=== PATIENT | female | born 1955 | race Caucasian/White ===

== ENCOUNTER 2017-05-20 09:30 | Outpatient (RCR) | payer OTHER, SELFPAY ==
--- NOTE | 2018-03-23 16:20 | DS.PCM_ITS ---
Massage Therapy Discharge Summary: Initial Evaluation: 04/29/2017 Diagnosis: shoulder and neck pain No. of Visits: Date of last visit: 05/20/2017 This patient is being discharged from our care at the [facility]. Thank you, Michaela Silva LMT
== END 2017-05-20 19:00 | disposition home or self-care (01) ==
LOC: MASS 09:30
PROVIDERS: Family Provider Family Medicine; PCP Family Medicine; Visit Provider Family Medicine
DX: M54.2 Cervicalgia (principal)
CPT/HCPCS: 97124

== ENCOUNTER → 2017-06-08 09:53 | Outpatient (CLI) | payer OTHER, SELFPAY ==
--- NOTE | 2017-06-08 09:57 | ECHOD_ITS ---
Reason For Study: CARDIOMYOPATHY Procedure This was a 2D Doppler, Color Flow transthoracic echocardiogram. Exam performed in department. Left Ventricle Normal LV size. Left ventricular systolic function is normal. The estimated ejection fraction is 55 %. No evidence for diastolic dysfunction. No regional wall motion abnormalities noted. Right Ventricle Normal RV size. Normal systolic function. Atria Normal left atrium. Normal right atrium. Mitral Valve Normal mitral valve. Mild (1+) eccentric mitral valve insufficiency. Tricuspid Valve Normal tricuspid valve. Mild (1+) tricuspid valve insufficiency. Aortic Valve Normal aortic valve. Trisinus/trileaflet aortic valve. Pulmonic Valve Normal pulmonic valve. Great Vessels Normal aortic root. The pulmonary artery is normal size. Normal inferior vena cava. Pericardium/Pleural No pericardial effusion. MMode/2D Measurements & Calculations LVIDd: 3.8 cm IVSd: 0.75 cm Ao root diam: 3.1 cm LVIDs: 2.7 cm LVPWd: 0.76 cm LA dimension: 3.4 cm RVDd: 3.9 cm FS: 28.8 % LAV(MOD-bp): 31.4 ml EDV(MOD-sp4): 89.0 ml EDV(MOD-sp2): 78.1 ml LAV(MOD-bp) Indexed: 17.8 ml/m2 ESV(MOD-sp4): 38.9 ml EF(MOD-sp2): 63.0 % LAV(MOD-sp2): 30.7 ml EF(MOD-sp4): 56.3 % LAV(MOD-sp4): 30.4 ml SV(MOD-sp4): 50.1 ml SV(MOD-sp2): 49.2 ml LA A4 area: 13.3 cm2 RA A4 area: 11.7 cm2 Doppler Measurements & Calculations MV E max tiffany: 68.0 cm/sec Ao V2 max: 114.8 cm/sec LV V1 max: 92.0 cm/sec MV A max tiffany: 79.7 cm/sec Ao max P.3 mmHg LV V1 max P.4 mmHg MV E/A: 0.85 PA V2 max: 76.9 cm/sec TR max tiffany: 212.6 cm/sec TR max P.2 mmHg Interpretation Summary Normal LV size. Left ventricular systolic function is normal. The estimated ejection fraction is 55 %. Mild (1+) eccentric mitral valve insufficiency. Mild (1+) tricuspid valve insufficiency. No evidence for diastolic dysfunction. Compared to previous there is significant improvement Ordering Physician: Waldemar López Referring Physician: MEHDI CHRISTINE Performed By: Tg Patterson, RDCS, RVT
== END ==
PROVIDERS: Family Provider Family Medicine; PCP Family Medicine; Visit Provider Internal Medicine Cardiovascular Disease
DX: R00.2 Palpitations (principal); I51.81 Takotsubo syndrome
CPT/HCPCS: 93306

== ENCOUNTER → 2017-06-25 12:43 | Outpatient (CLI) | payer OTHER, SELFPAY ==
--- NOTE | 2017-06-25 12:59 | PCM.CR.HP2 ---
CR - History & Physical - General Arrival date:: 06/25/17 Arrival time:: 13:00 Date of Admission: 06/25/17 Referring Physician: Primary Diagnosis: NSTEMI, PCI - History of Present Cardiac Event Onset Date: Enter Onset Date of cardiac illnesses in Comment field below Angina:: Yes [place]:: Yes - 02/16/18 CABG:: No PTCA:: No Valve Replacement/Repair:: No Pacemaker/ICD: No Type of Symptoms:: [place] SOB, anterior chest pain. Interventions with present event:: Adm and then had heart cath Were there any complications?: no - Medications Home Medications: Ambulatory Orders Medication Instructions Recorded Aspirin [Aspirin, Baby] 81 mg PO DAILY@0800 #30 tab.chew 02/17/17 carvedilol 6.25 mg tablet 6.25 mg PO BID #60 tab 03/10/17 lisinopril 2.5 mg tablet 2.5 mg PO DAILY #30 tab 03/18/17 ascorbic acid (vitamin C) ER 1,000 1,000 mg PO BID tab 06/15/17 mg tablet,extended release - Allergies Allergies/Adverse Reactions: Allergies potassium Allergy (Verified 06/16/17 10:59) Anaphylaxis PATIENT CAN TOLERATE PO POTASSIUM NOT IV, PATIENT STATES HEART STOPPED WHEN GIVEN IV POTASSIUM. acetaminophen [From Tylenol] Adverse Reaction (Verified 06/16/17 10:59) Unknown codeine Adverse Reaction (Verified 06/16/17 10:59) Vomiting - Sleep Disorder Evaluation Hx of Sleep Apnea: No Do you snore loudly (louder than talking or can be heard through closed doors)?: Yes Do you often feel tired/ fatigued/ sleepy during daytime?: Yes Has anyone observed you stop breathing during sleep?: No History of Hypertension (for STOP score): No STOP Results: Positive Advanced Directives - Advanced Directives Power of Primary School Teacher: No Living Will: No Advance Directives Information Provided: Yes Advance Directives on File: No DNR Order?:: No Past Medical History - Problems and Co-Morbidities Problems & Co-Morbidities: Depression, Anxiety - Past Medical Illness Past Medical Illness: Arthritis, Lung or Breathing Problems - Some sob at times, Back Problems, Neuropathy - has some numbness and tingling from neck issues at times. - Past Cardiac Illness Past Cardiac Illness: LV Dysfunction - EF 35 now 55%, Ejection Fraction Other Cardiac Illnesses:: Takotsubo Cardiomyopathy. - Other Other: Vision/Eye Problems - Cataract surg bilaterally - Cardiology Procedures/Interventions Cardiology Procedures/Interventions: Heart Catheterization, Echocardiogram - Past Surgical History Surgical History: cataract, - - R carpal tunnel surgery, BL cataract, ABEBA (unilateral, unclear which side), Appendectomy. - Family History Summary Family History: Heart Disease: Maternal, Paternal, Sibling - CHF age 92, dad had mi- age 84, brothers and sisters with heart disease(CAD). Review of Systems - Review of Systems Hints: Right click = Denies (Slash). Left click = Reports ([place]) Review of Present Symptoms: Reports: Shortness of Breath with Exertion - with tension notices it., Fatigue, Heart Arrhythmia/Irregularities - yes a few weeks ago., Appetite - Normal, Sleep - Normal - difficulty falling asleep. Denies: Shortness of Breath at Rest, PVD, Operative Discomfort, Angina, Wound Healing, Dizziness/Lightheadedness, Appetite - Special Diet, Sexual Changes Risk Factor Assessment - Chief Complaint Chief Complaint: to get healthy - Pulse Pulse Rate: 57 Pulse Rhythm: Regular - Hypertension Blood Pressure Sitting - Right Arm: 110/70 Blood Pressure Sitting - Left Arm: 124/70 - Stress Stress: Long-standing, Work-related - Diabetes Nutrition Referral for Diabetes: No - Obesity Height: 1.7 m Weight:: 68.039 kg Weight in Pounds: 150.0 lbs Body Mass Index (BMI): 23.5 Nutritional Referral for Obesity: No - Physical Inactivity Physical Inactivity: Physically demanding job - Risk Stratification Risk Guidelines: Lowest Risk: Risk Factor for Smoking, Risk Factor for Dyslipidemia, Risk Factor for Diabetes, Risk Factor for Obesity, Risk Factor for Hypertension, Risk Factor for Sedentary Lifestyle, Highest Risk: Risk Factor for Depression - For Smoking Smoking Risk Guidelines: Smoking Low Risk: None or quit greater than 6 months ago. Smoking Moderate Risk: Smoker or quit 6 months or less ago. Smoking High Risk: Smoker - For Dyslipidemia Dyslipidemia Risk Guidelines: Low Risk: Moderate Risk: High Risk: 15-25% fat 25.1-29% fat >/= 30% fat. <7% sat fat 7-9% sat fat >9% sat fat. <150 mg chol 150-299 mg chol >/= 300 mg chol. LDL <100 LDL 100-129 LDL >/= 130. Chol/HDL ratio <5.0 Chol/HDL ratio 5.0-6.0 Chol/HDL ratio >6.0. Triglycerides <100 Triglycerides 100-149 Triglycerides >/= 150 - For Diabetes Mellitus Diabetes Risk Guidelines: Diabetes Low Risk: HgA1c <6.5% and/or FBG <120. Diabetes Moderate Risk: HgA1c 6.6-7.9% and/or FBG 120-180. Diabetes High Risk: HgA1c >/= 8% and/or FBG >180 - For Obesity/Overweight Obesity/Overweight Risk Guidelines: Obesity Low Risk: BMI <25.0. Obesity Moderate Risk: BMI 25-29.9. Obesity High Risk: BMI >/= 30.0 - For Hypertension Hypertension Risk Guidelines: Hypertension Low Risk: Systolic <120 and Diastolic <80. Hypertension Moderate Risk: Systolic 120-139 and Diastolic 80-89. Hypertension High Risk: Systolic >/= 140 and Diastolic >/= 90 - For Sedentary Lifestyle Sedentary Lifestyle Risk Guidelines: Sedentary Lifestyle Low Risk: >/= 1,500 kcal/week. Sedentary Lifestyle Moderate Risk: 700-1,499 kcal/week. Sedentary Lifestyle High Risk: < 700 kcal/week - For Depression Depression Risk Guidelines: Depression Low Risk: Not clinically depressed. Depression Moderate Risk: Mildly depressed. 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
--- NOTE | 2017-06-25 13:13 | CR.ITP_ITS ---
Exercise - Initial Assessment - Visit Date of Eval: 06/25/17 - Stages of Change Stages of Change:: Action - Exercise Prescription Mode:: Treadmill, Biodyne, Rower, NuStep - Hypertension Do any of the following apply?: No - Intervention Home Exercise/Activity Goal:: Sitting Time <3 hrs/day - Education Goals:: Warm-up, RPE JOSE ALFREDO Scale, S/S, Safe Exercise, Self-Monitoring - Exercise Program Goals Exercise Program Goals: Aerobic Activity >30 min Nutrition - Initial Assessment - Program Goals Nutrition Program Goals: LDL <70. Total Cholesterol <200. HDL >45. Triglycerides <150. HgbA1C <7%. BMI <25 - Visit Date of Assessment:: 06/25/17 - Stages of Change Stages of Change:: Action - Diabetes Diabetes:: No - Weight Management Height: 1.7 m Weight:: 68.039 kg - Intervention Referral to dietitian:: No Referral to Diabetic Clinic:: No Will attend diet classes:: Yes - Education Gave educational materials for:: Healthy eating Nutrition - 30-Day Assessment - Program Goals Nutrition Program Goals: LDL <70. Total Cholesterol <200. HDL >45. Triglycerides <150. HgbA1C <7%. BMI <25 - Diabetes Diabetes:: No Nutrition - 60-Day Assessment - Program Goals Nutrition Program Goals: LDL <70. Total Cholesterol <200. HDL >45. Triglycerides <150. HgbA1C <7%. BMI <25 - Diabetes Diabetes:: No Nutrition - 90-Day Assessment - Program Goals Nutrition Program Goals: LDL <70. Total Cholesterol <200. HDL >45. Triglycerides <150. HgbA1C <7%. BMI <25 - Diabetes Diabetes:: No Nutrition - Final Assessment - Program Goals Nutrition Program Goals: LDL <70. Total Cholesterol <200. HDL >45. Triglycerides <150. HgbA1C <7%. BMI <25 - Diabetes Diabetes:: No Tobacco - Initial Assessment - Program Goals Tobacco Program Goals: Complete smoking cessation. Attend education classes. Improve Knowledge Test score - Stage of Change Stages of Change:: Maintenance - Learning Barriers Learning Barriers: Vision - wears glasses, Ready to Learn Total Score:: 7 - Family Support Do you have family support?: Yes - Tobacco Use Tobacco Use: Non-smoker How long ago did you quit using tobacco products?: Greater than or equal to 6 months ago Do you use smokeless tobacco?: No - Intervention Smoking Cessation Referral:: No Individual Education/Counseling:: No Education Schedule Given:: Yes - Education Gave educational material for:: Coronary artery disease, Risk factors, Sexuality , Medical compliance, Cardiac A&P, Angina signs & symptoms Psychosocial - Initial Assess - Target Goals Target Goals: Assess presence or absence of depression. Using a valid screening tool, maximizes coping skills. Positive support system - Stages of Change Stages of Change:: Action - Psychosocial Test Tool Used:: HANDS Depression Questionnaire Self-reported stress:: yes, work related. Tests Completed: Mood Scale Test Total Mood Screening Score:: 19 - Numbers given for counselling and had discussion on this. MD's are aware. Self-Efficacy Score:: 5 - Intervention PS - Interventions: Yes Referral to Mental Health - info given., Yes Attend Stress Management Classes, Yes Uses Stress Management Skills, No Referral to [facility] Case Management, No Referral to Physician - Education Gave educational materials for:: Coping techniques, Signs & symptoms of depression, Stress management, Relaxation techniques - Patient/Program Goal Preventative Medication(s):: Aspirin, ARACELI inhibitor, Clopidogrel, Beta sarah, Statin/lipid - Assistive Devices Assistive Devices:: None Fall Risk Assessed:: Yes Patient Health Questionnaire Initial Assessment 1. Little interest or pleasure in doing things: More than half the days 2. Feeling down, depressed, or hopeless: More than half the days 3. Trouble falling or staying asleep, or sleeping too much: Nearly every day 4. Feeling tired or having little energy: Nearly every day 5. Poor appetite or overeating: Nearly every day 6. Feeling bad about yourself -- or that you are a failure or have let yourself or your family down: Several days 7. Trouble concentrating on things, such as reading the newspaper or watching television: More than half the days 8. Moving or speaking so slowly that other people could have noticed. Or the opposite - being so fidgety or restless that you have been moving around a lot more than usual: Nearly every day 9. Thoughts that you would be better off , or of hurting yourself in some way: Not at all Total Score: 19 Knowledge Test - Check your knowledge Initial The #1 cause of in the [place] each year is:: Cancer Which of the following is a common treatment for heart disease?: All of the above The arteries that feed the heart are called:: Coronary arteries HDL cholesterol is known as the good cholesterol.: False What disease increases your risk for heart disease?: Pneumonia What food product raises blood cholesterol level the most?: Saturated fat The bad cholesterol in the blood is called:: LDL Hypertension is another word for:: High blood pressure A blood pressure reading of 148/88 is considered normal.: False Exercise will only benefit your health when your heart rate reaches a target level.: False Total Score:: 7 Self-Efficacy Initial Assessment We would like to know how confident you are in doing certain activities. Please select your confidence level for:: Select your confidence level for the following using the scale 1-10 where 1 is not at all confident and 10 is totally confident. Your score is the average of all 6 responses. Fatigue: How confident are you that you can keep the fatigue caused by your disease from interfering with the things you want to do? Select Number: 2 Physical Discomfort or Pain: How confident are you that you can keep the physical discomfort or pain of your disease from interfering with the things you want to do? Select Number: 2 Emotional Distress: How confident are you that you can keep the emotional distress caused by your disease from interfering with the things you want to do? Select Number: 2 Other Symptoms or Health Problems: How confident are you that you can keep other symptoms or health problems from interfering with the things you want to do? Select Number: 2 Different Tasks and Activities: How confident are you that you can do the different tasks and activities needed to manage your health condition so as to reduce your need to see a doctor? Select Number: 5 Medication: How confident are you that you can do things other than just taking medication to reduce how much your illness affects your everyday life? Select Number: 5 Total Score:: 3 Nutrition Survey - Nutrition Survey Instructions Scoring Instructions: Scoring is as follows: Yes = 1 points. No = 0 point. Patient score that is >/=12 is considered to be at potential nutritional risk and could benefit from a referral to a registered dietitian. - Nutrition Survey Initial Have you lost >10 lbs over the past 2 months without trying?: No Are you following a special diet at home for diabetes, low fat, or low salt?: No Are you interested in meeting with a dietitian for help understanding your diet? : No Do you eat less than 3 meals a day?: Yes Do you eat fatty meats (acosta, sausage, ribs, etc), fried foods, desserts, large amounts of salad dressings, margarine, butter, or cheese most days?: No Do you have food allergies? [Enter types in comment field]: Yes Do you eat in restaurants more than 3 times a week?: No Do you season food with salt, seasoning salt, or garlic salt?: Yes Do you used canned, boxed, frozen meals, or soups, seasoning packets?: Yes Total Score:: 4 Cardiac Rehabilitation Goals - Cardiac Rehab Goals Cardiac Rehabilitation Goals: 1. Maintain the individual as the primary focus of care. 2. To improve the patient's quality of life. 3. Identification of cardiac risk factors and provide cardiac risk factor management. 4. Enhance the psychosocial status of the patient. 5. Reconditioning enough to allow the patient to resume customary activities. 6. Control symptoms of cardiac disease - Scale Scale for measuring improvement of personal goals: Enter appropriate number in Comments. 2 = Unchanged. 3 = Slightly Better. 4 = Moderate Improvement. 5 = Met my Goal Initial Assessment Personal Goals: 30-day Re-assessment: Improve management of stress and emotions , Improve energy level, Participate in home exercise program, Get back to work, or to resume activities faster, Improve knowledge of cardiac disease, Improve muscle strength and endurance, Improve diet and eating habits (eat healthier), Control risk factors (learn risk factor modification), Other goal:
--- NOTE | 2017-06-25 13:13 | CR.HP_ITS ---
CR - History & Physical - General Arrival date:: 06/25/17 Arrival time:: 13:00 Date of Admission: 06/25/17 Referring Physician: Primary Diagnosis: NSTEMI, PCI - History of Present Cardiac Event Onset Date: Enter Onset Date of cardiac illnesses in Comment field below Angina:: Yes [place]:: Yes - 02/16/18 CABG:: No PTCA:: No Valve Replacement/Repair:: No Pacemaker/ICD: No Type of Symptoms:: [place] SOB, anterior chest pain. Interventions with present event:: Adm and then had heart cath Were there any complications?: no - Medications Home Medications: Ambulatory Orders Medication Instructions Recorded Aspirin [Aspirin, Baby] 81 mg PO DAILY@0800 #30 tab.chew 02/17/17 carvedilol 6.25 mg tablet 6.25 mg PO BID #60 tab 03/10/17 lisinopril 2.5 mg tablet 2.5 mg PO DAILY #30 tab 03/18/17 ascorbic acid (vitamin C) ER 1,000 1,000 mg PO BID tab 06/15/17 mg tablet,extended release - Allergies Allergies/Adverse Reactions: Allergies potassium Allergy (Verified 06/16/17 10:59) Anaphylaxis PATIENT CAN TOLERATE PO POTASSIUM NOT IV, PATIENT STATES HEART STOPPED WHEN GIVEN IV POTASSIUM. acetaminophen [From Tylenol] Adverse Reaction (Verified 06/16/17 10:59) Unknown codeine Adverse Reaction (Verified 06/16/17 10:59) Vomiting - Sleep Disorder Evaluation Hx of Sleep Apnea: No Do you snore loudly (louder than talking or can be heard through closed doors)? : Yes Do you often feel tired/ fatigued/ sleepy during daytime?: Yes Has anyone observed you stop breathing during sleep?: No History of Hypertension (for STOP score): No STOP Results: Positive Advanced Directives - Advanced Directives Power of [employer]: No Living Will: No Advance Directives Information Provided: Yes Advance Directives on File: No DNR Order?:: No Past Medical History - Problems and Co-Morbidities Problems & Co-Morbidities: Depression, Anxiety - Past Medical Illness Past Medical Illness: Arthritis, Lung or Breathing Problems - Some sob at times , Back Problems, Neuropathy - has some numbness and tingling from neck issues at times. - Past Cardiac Illness Past Cardiac Illness: LV Dysfunction - EF 35 now 55%, Ejection Fraction Other Cardiac Illnesses:: Takotsubo Cardiomyopathy. - Other Other: Vision/Eye Problems - Cataract surg bilaterally - Cardiology Procedures/Interventions Cardiology Procedures/Interventions: Heart Catheterization, Echocardiogram - Past Surgical History Surgical History: cataract, - - R carpal tunnel surgery, BL cataract, ABEBA ( unilateral, unclear which side), Appendectomy. - Family History Summary Family History: Heart Disease: Maternal, Paternal, Sibling - CHF age 92, dad had mi- age 84, brothers and sisters with heart disease(CAD). Review of Systems - Review of Systems Hints: Right click = Denies (Slash). Left click = Reports ([place]) Review of Present Symptoms: Reports: Shortness of Breath with Exertion - with tension notices it., Fatigue, Heart Arrhythmia/Irregularities - yes a few weeks ago., Appetite - Normal, Sleep - Normal - difficulty falling asleep. Denies: Shortness of Breath at Rest, PVD, Operative Discomfort, Angina, Wound Healing, Dizziness/Lightheadedness, Appetite - Special Diet, Sexual Changes Risk Factor Assessment - Chief Complaint Chief Complaint: to get healthy - Pulse Pulse Rate: 57 Pulse Rhythm: Regular - Hypertension Blood Pressure Sitting - Right Arm: 110/70 Blood Pressure Sitting - Left Arm: 124/70 - Stress Stress: Long-standing, Work-related - Diabetes Nutrition Referral for Diabetes: No - Obesity Height: 1.7 m Weight:: 68.039 kg Weight in Pounds: 150.0 lbs Body Mass Index (BMI): 23.5 Nutritional Referral for Obesity: No - Physical Inactivity Physical Inactivity: Physically demanding job - Risk Stratification Risk Guidelines: Lowest Risk: Risk Factor for Smoking, Risk Factor for Dyslipidemia, Risk Factor for Diabetes, Risk Factor for Obesity, Risk Factor for Hypertension, Risk Factor for Sedentary Lifestyle, Highest Risk: Risk Factor for Depression - For Smoking Smoking Risk Guidelines: Smoking Low Risk: None or quit greater than 6 months ago. Smoking Moderate Risk: Smoker or quit 6 months or less ago. Smoking High Risk: Smoker - For Dyslipidemia Dyslipidemia Risk Guidelines: Low Risk: Moderate Risk: High Risk: 15-25% fat 25.1-29% fat >/= 30% fat. <7% sat fat 7-9% sat fat >9% sat fat. <150 mg chol 150-299 mg chol >/= 300 mg chol. LDL <100 LDL 100-129 LDL >/= 130. Chol/HDL ratio <5.0 Chol/HDL ratio 5.0-6.0 Chol/HDL ratio >6.0. Triglycerides <100 Triglycerides 100-149 Triglycerides >/= 150 - For Diabetes Mellitus Diabetes Risk Guidelines: Diabetes Low Risk: HgA1c <6.5% and/or FBG <120. Diabetes Moderate Risk: HgA1c 6.6-7.9% and/or FBG 120-180. Diabetes High Risk: HgA1c >/= 8% and/or FBG >180 - For Obesity/Overweight Obesity/Overweight Risk Guidelines: Obesity Low Risk: BMI <25.0. Obesity Moderate Risk: BMI 25-29.9. Obesity High Risk: BMI >/= 30.0 - For Hypertension Hypertension Risk Guidelines: Hypertension Low Risk: Systolic <120 and Diastolic <80. Hypertension Moderate Risk: Systolic 120-139 and Diastolic 80-89. Hypertension High Risk: Systolic >/= 140 and Diastolic >/= 90 - For Sedentary Lifestyle Sedentary Lifestyle Risk Guidelines: Sedentary Lifestyle Low Risk: >/= 1 ,500 kcal/week. Sedentary Lifestyle Moderate Risk: 700-1,499 kcal/week. Sedentary Lifestyle High Risk: < 700 kcal/week - For Depression Depression Risk Guidelines: Depression Low Risk: Not clinically depressed. Depression Moderate Risk: Mildly depressed. 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
[2017-06-25 14:37] VITALS: BP 110/70; BP 124/70; PULSE 57; BMI 23.5
== END ==
PROVIDERS: Family Provider Family Medicine; PCP Family Medicine; Visit Provider Internal Medicine Cardiovascular Disease
DX: I25.2 Old myocardial infarction (principal); Z95.5 Presence of coronary angioplasty implant and graft

== ENCOUNTER 2017-07-03 08:00 | Outpatient (RCR) | payer OTHER, SELFPAY | END 2017-07-04 23:59 | LOC: CR 08:00 | PROVIDERS: Family Provider Family Medicine; PCP Family Medicine; Visit Provider Internal Medicine Cardiovascular Disease | DX: I21.4 Non-ST elevation (NSTEMI) myocardial infarction (principal) | CPT/HCPCS: 93798 ==

== ENCOUNTER → 2017-07-22 09:46 | Outpatient (CLI) | payer OTHER, SELFPAY ==
[2017-07-22 11:24] LABS: BNP,B-Type NATRIURETIC PEPTIDE 20.7 pg/mL (0-100)
== END ==
PROVIDERS: Family Provider Family Medicine; PCP Family Medicine; Visit Provider Nurse Practitioner Family
DX: R06.02 Shortness of breath (principal); I51.81 Takotsubo syndrome
CPT/HCPCS: 36415; 83880

== ENCOUNTER 2017-08-03 08:00 | Outpatient (RCR) | payer OTHER, SELFPAY ==
--- NOTE | 2017-07-27 10:17 | PCM.CR.ITP ---
General Information - General Information Admitting Diagnosis: I51.81 Takotsubo syndrome - Education/Goals Barriers to Learning: Vision Impairment Cardiac Rehabilitation Goals: 1. Maintain the individual as the primary focus of care. 2. To improve the patient's quality of life. 3. Identification of cardiac risk factors and provide cardiac risk factor management. 4. Enhance the psychosocial status of the patient. 5. Reconditioning enough to allow the patient to resume customary activities. 6. Control symptoms of cardiac disease Scale for measuring improvement of personal goals: Enter appropriate number in Comments. 2 = Unchanged. 3 = Slightly Better. 4 = Moderate Improvement. 5 = Met my Goal Personal Goals: 30-day Re-assessment: Improve management of stress and emotions, Improve energy level, Participate in home exercise program, Get back to work, or to resume activities faster, Improve knowledge of cardiac disease, Improve muscle strength and endurance Exercise - 30-day Assessment - Visit Date of Eval: 07/27/17 Session #:: 11 - Stages of Change Stages of Change:: Action - Exercise Prescription Mode:: Treadmill, Airdyne, NuStep Frequency (x/week): 3 Duration:: 30 METs - Progression: 0.5-1 MET as tolerated: 4 Target Heart Rate:: 120-128 - Hypertension Resting Blood Pressure:: 100/48 Peak Exercise Blood Pressure:: 112/60 Medication Changes:: Yes - Off lisinopril 07/17/2017 - Intervention Home Exercise/Activity Goal:: Sitting Time <3 hrs/day - Education Goals:: Warm-up, RPE JOSE ALFREDO Scale, S/S, Safe Exercise, Self-Monitoring - Exercise Program Goals Exercise Program Goals: Aerobic Activity >30 min, B/P <140/90 Nutrition - 30-Day Assessment - Program Goals Nutrition Program Goals: LDL <70. Total Cholesterol <200. HDL >45. Triglycerides <150. HgbA1C <7%. BMI <25 - Visit Date of Eval: 07/27/17 - Stages of Change Stages of Change:: Action - Lipids Has the patient seen the dietitian?: No - Diabetes Diabetes:: No - Weight Management Weight:: 70.08 kg - Intervention Referral to dietitian:: No Referral to Diabetic Clinic:: No Will attend diet classes:: Yes - Education Attended class for:: Signs & symptoms of hypoglycemia, Signs & symptoms of hyperglycemia, Relate diabetes to coronary artery disease, Healthy eating Tobacco - Initial Assessment - Program Goals Tobacco Program Goals: Complete smoking cessation. Attend education classes. Improve Knowledge Test score - Learning Barriers Learning Barriers: Vision - wears glasses, Ready to Learn Tobacco - 30-Day Assessment - Program Goals Tobacco Program Goals: Complete smoking cessation. Attend education classes. Improve Knowledge Test score - Stage of Change Stages of Change:: Action - Learning Barriers Learning Barriers: Participates in education - Family Support Do you have family support?: Yes - Tobacco Use Tobacco Use: Non-smoker Do you use smokeless tobacco?: No - Intervention Smoking Cessation Referral:: No Individual Education/Counseling:: No Education Schedule Given:: Yes - Education Attended class for:: Tobacco triggers, Coronary artery disease, Risk factors, Sexuality, Medical compliance, Cardiac A&P, Angina signs & symptoms Psychosocial - Initial Assess - Target Goals Target Goals: Assess presence or absence of depression. Using a valid screening tool, maximizes coping skills. Positive support system - Psychosocial Test Tool Used:: HANDS Depression Questionnaire - Assistive Devices Fall Risk Assessed:: Yes Psychosocial - 30-Day Assess - Target Goals Target Goals: Assess presence or absence of depression. Using a valid screening tool, maximizes coping skills. Positive support system - Stages of Change Stages of Change:: Action - Psychosocial Test Tool Used:: HANDS Depression Questionnaire - Intervention PS - Interventions: Yes Attend Stress Management Classes, Yes Uses Stress Management Skills, No Referral to Mental Health, No Referral to [facility] Case Management, No Referral to Physician - Education Attended classes for:: Coping techniques, Signs & symptoms of depression, Stress management, Relaxation techniques - Assistive Devices Assistive Devices:: None Fall Risk Assessed:: Yes Patient Health Questionnaire 30-Day Re-eval Assessment 1. Little interest or pleasure in doing things: More than half the days 2. Feeling down, depressed, or hopeless: More than half the days 3. Trouble falling or staying asleep, or sleeping too much: Nearly every day 4. Feeling tired or having little energy: Nearly every day 5. Poor appetite or overeating: Nearly every day 6. Feeling bad about yourself -- or that you are a failure or have let yourself or your family down: Several days 7. Trouble concentrating on things, such as reading the newspaper or watching television: More than half the days 8. Moving or speaking so slowly that other people could have noticed. Or the opposite - being so fidgety or restless that you have been moving around a lot more than usual: Nearly every day 9. Thoughts that you would be better off , or of hurting yourself in some way: Not at all How difficult have these problems made it for you to do your work, take care of things at home, or get along with other people?: Somewhat difficult Total Score: 19 Self-Efficacy 30-Day Re-eval Assessment We would like to know how confident you are in doing certain activities. Please select your confidence level for:: Select your confidence level for the following using the scale 1-10 where 1 is not at all confident and 10 is totally confident. Your score is the average of all 6 responses. Fatigue: How confident are you that you can keep the fatigue caused by your disease from interfering with the things you want to do? Select Number: 2 Physical Discomfort or Pain: How confident are you that you can keep the physical discomfort or pain of your disease from interfering with the things you want to do? Select Number: 2 Emotional Distress: How confident are you that you can keep the emotional distress caused by your disease from interfering with the things you want to do? Select Number: 2 Other Symptoms or Health Problems: How confident are you that you can keep other symptoms or health problems from interfering with the things you want to do? Select Number: 2 Different Tasks and Activities: How confident are you that you can do the different tasks and activities needed to manage your health condition so as to reduce your need to see a doctor? Select Number: 5 Medication: How confident are you that you can do things other than just taking medication to reduce how much your illness affects your everyday life? Select Number: 5 Total Score:: 3
[2017-07-27 10:29] VITALS: BP 100/48; BP 112/60
== END 2017-08-03 23:59 ==
LOC: CR 08:00
PROVIDERS: Family Provider Family Medicine; PCP Family Medicine; Visit Provider Internal Medicine Cardiovascular Disease
DX: I21.4 Non-ST elevation (NSTEMI) myocardial infarction (principal)
CPT/HCPCS: 93798

== ENCOUNTER → 2017-08-25 06:51 | Outpatient (CLI) | payer OTHER, SELFPAY ==
--- NOTE | 2017-08-25 13:47 | PFT ---
INTRODUCTION: The patient is a 61-year-old female currently under the care of Dr. Hair that presents for pulmonary function testing secondary to a diagnosis of dyspnea on exertion. Respiratory therapy reports good patient effort. Bronchodilators were used during testing. INTERPRETATION: Forced expiration spirometry demonstrates no evidence of a large airways obstructive ventilatory defect. There is no significant response to aerosolized bronchodilators. Spirograms are of good quality and plateau gradually indicating slow emptying of the lungs. Body plethysmography was performed and reveals lung volumes to be within normal limits. Diffusing capacity by single breath CO is within normal limits at 98% of predicted. IMPRESSION: These pulmonary function studies are essentially within normal limits. There are no previous pulmonary function studies available for comparison.
== END ==
PROVIDERS: Family Provider Family Medicine; PCP Family Medicine; Visit Provider Family Medicine
DX: R06.09 Other forms of dyspnea (principal)
CPT/HCPCS: 94060; 94726; 94729

== ENCOUNTER 2017-09-02 08:00 | Outpatient (RCR) | payer OTHER, SELFPAY ==
[2017-08-04 01:01] VITALS: BP 100/48; BP 112/60
--- NOTE | 2017-08-26 13:42 | PCM.CR.ITP ---
General Information - General Information Admitting Diagnosis: I58.81 Takotsubo syndrome - Education/Goals Barriers to Learning: Vision Impairment Cardiac Rehabilitation Goals: 1. Maintain the individual as the primary focus of care. 2. To improve the patient's quality of life. 3. Identification of cardiac risk factors and provide cardiac risk factor management. 4. Enhance the psychosocial status of the patient. 5. Reconditioning enough to allow the patient to resume customary activities. 6. Control symptoms of cardiac disease Scale for measuring improvement of personal goals: Enter appropriate number in Comments. 2 = Unchanged. 3 = Slightly Better. 4 = Moderate Improvement. 5 = Met my Goal Personal Goals: Discharge Reassessment: Improve management of stress and emotions, Improve energy level, Participate in home exercise program, Get back to work, or to resume activities faster, Improve knowledge of cardiac disease, Improve muscle strength and endurance Exercise - 90-Day Assessment - Visit Date of Eval: 08/26/17 Session #:: 24 - Stages of Change Stages of Change:: Action - Exercise Prescription Mode:: Treadmill, Airdyne, NuStep Frequency (x/week): 3 - 50% MET increase Duration:: 30 METs: 4.5 Target Heart Rate:: 128-136 Max HR 148 - Hypertension Resting Blood Pressure:: 122/70 Peak Exercise Blood Pressure:: 148/80 Medication Changes:: Yes - Off Lisinopril 07/17, off Coreg 07/27 - Intervention Home Exercise/Activity Goal:: Sitting Time <3 hrs/day - Education Goals:: Warm-up, RPE JOSE ALFREDO Scale, S/S, Safe Exercise, Self-Monitoring - Exercise Program Goals Exercise Program Goals: Aerobic Activity >30 min, B/P <130/80 Nutrition - 90-Day Assessment - Program Goals Nutrition Program Goals: LDL <70. Total Cholesterol <200. HDL >45. Triglycerides <150. HgbA1C <7%. BMI <25 - Visit Date of Eval: 08/26/17 - Stages of Change Stages of Change:: Contemplate - Lipids Has the patient seen the dietitian?: No - Diabetes Diabetes:: No - Weight Management Weight:: 70.08 kg - Intervention Referral to dietitian:: No Referral to Diabetic Clinic:: No Will attend diet classes:: Yes - Education Attended class for:: Signs & symptoms of hypoglycemia, Signs & symptoms of hyperglycemia, Relate diabetes to coronary artery disease, Healthy eating Tobacco - Initial Assessment - Program Goals Tobacco Program Goals: Complete smoking cessation. Attend education classes. Improve Knowledge Test score - Learning Barriers Learning Barriers: Vision - wears glasses, Ready to Learn Tobacco - 90-Day Assessment - Program Goals Tobacco Program Goals: Complete smoking cessation. Attend education classes. Improve Knowledge Test score - Stage of Change Stages of Change:: Action - Learning Barriers Learning Barriers: Participates in education - Family Support Do you have family support?: Yes - Tobacco Use Tobacco Use: Non-smoker Do you use smokeless tobacco?: No - Intervention Smoking Cessation Referral:: No Individual Education/Counseling:: No Education Schedule Given:: Yes - Education Attended class for:: Tobacco triggers, Coronary artery disease, Risk factors, Sexuality, Medical compliance, Cardiac A&P, Angina signs & symptoms Psychosocial - Initial Assess - Target Goals Target Goals: Assess presence or absence of depression. Using a valid screening tool, maximizes coping skills. Positive support system - Psychosocial Test Tool Used:: HANDS Depression Questionnaire - Assistive Devices Fall Risk Assessed:: Yes Psychosocial - 90-Day Assess - Target Goals Target Goals: Assess presence or absence of depression. Using a valid screening tool, maximizes coping skills. Positive support system - Stages of Change Stages of Change:: Action - Psychosocial Test Tool Used:: HANDS Depression Questionnaire - Intervention PS - Interventions: Yes Attend Stress Management Classes, Yes Uses Stress Management Skills, No Referral to Mental Health, No Referral to [facility] Case Management, No Referral to Physician - Education Attended classes for:: Coping techniques, Signs & symptoms of depression, Stress management, Relaxation techniques - Assistive Devices Assistive Devices:: None Fall Risk Assessed:: Yes Patient Health Questionnaire 90-Day Re-eval Assessment 1. Little interest or pleasure in doing things: More than half the days 2. Feeling down, depressed, or hopeless: More than half the days 3. Trouble falling or staying asleep, or sleeping too much: Nearly every day 4. Feeling tired or having little energy: Nearly every day 5. Poor appetite or overeating: Nearly every day 6. Feeling bad about yourself -- or that you are a failure or have let yourself or your family down: Several days 7. Trouble concentrating on things, such as reading the newspaper or watching television: More than half the days 8. Moving or speaking so slowly that other people could have noticed. Or the opposite - being so fidgety or restless that you have been moving around a lot more than usual: Several days 9. Thoughts that you would be better off , or of hurting yourself in some way: Not at all How difficult have these problems made it for you to do your work, take care of things at home, or get along with other people?: Somewhat difficult Total Score: 17 Self-Efficacy 90-Day Re-eval Assessment We would like to know how confident you are in doing certain activities. Please select your confidence level for:: Select your confidence level for the following using the scale 1-10 where 1 is not at all confident and 10 is totally confident. Your score is the average of all 6 responses. Fatigue: How confident are you that you can keep the fatigue caused by your disease from interfering with the things you want to do? Select Number: 2 Physical Discomfort or Pain: How confident are you that you can keep the physical discomfort or pain of your disease from interfering with the things you want to do? Select Number: 2 Emotional Distress: How confident are you that you can keep the emotional distress caused by your disease from interfering with the things you want to do? Select Number: 2 Other Symptoms or Health Problems: How confident are you that you can keep other symptoms or health problems from interfering with the things you want to do? Select Number: 2 Different Tasks and Activities: How confident are you that you can do the different tasks and activities needed to manage your health condition so as to reduce your need to see a doctor? Select Number: 5 Medication: How confident are you that you can do things other than just taking medication to reduce how much your illness affects your everyday life? Select Number: 5 Total Score:: 3
[2017-08-26 13:50] VITALS: BP 122/70; BP 148/80
== END 2017-09-03 23:59 ==
LOC: CR 08:00
PROVIDERS: Family Provider Family Medicine; PCP Family Medicine; Visit Provider Internal Medicine Cardiovascular Disease
DX: I21.4 Non-ST elevation (NSTEMI) myocardial infarction (principal)
CPT/HCPCS: 93798

== ENCOUNTER 2017-09-28 08:00 | Outpatient (RCR) | payer OTHER, SELFPAY ==
[2017-09-04 00:51] VITALS: BP 122/70; BP 148/80
--- NOTE | 2017-09-25 15:30 | PCM.CR.ITP ---
Exercise - 90-Day Assessment - Visit Date of Eval: 09/25/17 Session #:: 29 - Stages of Change Stages of Change:: Action - Exercise Prescription Mode:: Treadmill, Rower, NuStep, Arm Ergometer Frequency (x/week): 3 Duration:: 30 METs: 5 Target Heart Rate:: 128-136 - Hypertension Resting Blood Pressure:: 96/60 Peak Exercise Blood Pressure:: 110/74 Medication Changes:: Yes - Intervention Home Exercise/Activity Goal:: Moderate Exercise 30 min/day x 5 days/wk - Education Goals:: Warm-up, RPE JOSE ALFREDO Scale, S/S, Safe Exercise, Self-Monitoring - Exercise Program Goals Exercise Program Goals: Aerobic Activity >30 min Nutrition - 90-Day Assessment - Program Goals Nutrition Program Goals: LDL <70. Total Cholesterol <200. HDL >45. Triglycerides <150. HgbA1C <7%. BMI <25 - Visit Date of Eval: 09/25/17 - Stages of Change Stages of Change:: Action - Lipids Has the patient seen the dietitian?: Yes - Diabetes Diabetes:: No - Intervention Referral to dietitian:: No Referral to Diabetic Clinic:: No Will attend diet classes:: Yes - Education Attended class for:: Healthy eating Tobacco - Initial Assessment - Program Goals Tobacco Program Goals: Complete smoking cessation. Attend education classes. Improve Knowledge Test score - Learning Barriers Learning Barriers: Vision - wears glasses, Ready to Learn Tobacco - 90-Day Assessment - Program Goals Tobacco Program Goals: Complete smoking cessation. Attend education classes. Improve Knowledge Test score - Stage of Change Stages of Change:: Action - Learning Barriers Learning Barriers: Participates in education - Family Support Do you have family support?: Yes - Tobacco Use Tobacco Use: Non-smoker Do you use smokeless tobacco?: No - Intervention Education Schedule Given:: Yes - Education Attended class for:: Tobacco triggers, Coronary artery disease, Risk factors, Sexuality, Medical compliance, Cardiac A&P, Angina signs & symptoms Psychosocial - 90-Day Assess - Target Goals Target Goals: Assess presence or absence of depression. Using a valid screening tool, maximizes coping skills. Positive support system - Stages of Change Stages of Change:: Action - Psychosocial Test Tool Used:: HANDS Depression Questionnaire - Intervention PS - Interventions: Yes Attend Stress Management Classes, Yes Uses Stress Management Skills, No Referral to Mental Health, No Referral to [facility] Case Management, No Referral to Physician - Education Attended classes for:: Coping techniques, Signs & symptoms of depression, Stress management, Relaxation techniques - Patient/Program Goal Preventative Medication(s):: Aspirin, ARACELI inhibitor, Clopidogrel, Beta sarah, Statin/lipid - Assistive Devices Assistive Devices:: None Fall Risk Assessed:: Yes Patient Health Questionnaire 90-Day Re-eval Assessment 1. Little interest or pleasure in doing things: More than half the days 2. Feeling down, depressed, or hopeless: More than half the days 3. Trouble falling or staying asleep, or sleeping too much: Nearly every day 4. Feeling tired or having little energy: Nearly every day 5. Poor appetite or overeating: Several days 6. Feeling bad about yourself -- or that you are a failure or have let yourself or your family down: More than half the days 7. Trouble concentrating on things, such as reading the newspaper or watching television: Several days 8. Moving or speaking so slowly that other people could have noticed. Or the opposite - being so fidgety or restless that you have been moving around a lot more than usual: Not at all 9. Thoughts that you would be better off , or of hurting yourself in some way: Not at all How difficult have these problems made it for you to do your work, take care of things at home, or get along with other people?: Somewhat difficult Total Score: 14 Self-Efficacy 90-Day Re-eval Assessment We would like to know how confident you are in doing certain activities. Please select your confidence level for:: Select your confidence level for the following using the scale 1-10 where 1 is not at all confident and 10 is totally confident. Your score is the average of all 6 responses. Fatigue: How confident are you that you can keep the fatigue caused by your disease from interfering with the things you want to do? Select Number: 7 Physical Discomfort or Pain: How confident are you that you can keep the physical discomfort or pain of your disease from interfering with the things you want to do? Select Number: 8 Emotional Distress: How confident are you that you can keep the emotional distress caused by your disease from interfering with the things you want to do? Select Number: 7 Other Symptoms or Health Problems: How confident are you that you can keep other symptoms or health problems from interfering with the things you want to do? Select Number: 6 Different Tasks and Activities: How confident are you that you can do the different tasks and activities needed to manage your health condition so as to reduce your need to see a doctor? Select Number: 8 Medication: How confident are you that you can do things other than just taking medication to reduce how much your illness affects your everyday life? Select Number: 8 Total Score:: 7
[2017-09-25 15:35] VITALS: BP 110/74; BP 96/60
== END 2017-10-03 23:59 ==
LOC: CR 08:00
PROVIDERS: Family Provider Family Medicine; PCP Family Medicine; Visit Provider Internal Medicine Cardiovascular Disease
DX: I25.2 Old myocardial infarction (principal)
CPT/HCPCS: 93798

== ENCOUNTER → 2017-09-28 09:30 | Outpatient (RCR) | payer OTHER, SELFPAY ==
[2017-10-04 00:45] VITALS: BP 110/74; BP 96/60
== END | disposition home or self-care (01) ==
LOC: CR 10-05 06:36
PROVIDERS: Family Provider Family Medicine; PCP Family Medicine; Visit Provider Internal Medicine Cardiovascular Disease
DX: I25.2 Old myocardial infarction (principal)
CPT/HCPCS: 93798

== ENCOUNTER 2017-10-26 00:24 | Emergency (ER) | payer OTHER, SELFPAY ==
[2017-10-26 00:27] VITALS: BP 149/80; PULSE 72; RESP 25; TEMP 36.9; O2SAT 100; BMI 24.1
--- NOTE | 2017-10-26 00:32 | EKG12_ITS ---
Test Reason : CP Blood Pressure : / mmHG Vent. Rate : 063 BPM Atrial Rate : 063 BPM P-R Int : 170 ms QRS Dur : 084 ms QT Int : 402 ms P-R-T Axes : 059 061 051 degrees QTc Int : 411 ms Normal sinus rhythm Normal ECG Confirmed by HENRY NINA, NOAH ([id number]), health editor SASHA ROJAS ([id number] on 10/27/2017 1:14:35 PM Referred By: LACHO Confirmed By:NOAH FIGUEROA MD
[2017-10-26 00:40] LABS: Absolute Lymphocyte Count 3.45 X10^3/ul (0.83-4.51); Absolute Neutrophil Count 2.4 X10^3/uL (2.0-7.7); Basophil# 0.04 X10^3/uL; Basophil% 0.6 % (0-1); Hematocrit 43.7 % (37-47); Hemoglobin 14.4 g/dl (12.0-15.0); Lymphocyte # 3.45 X10^3/ul (4.0); Lymphocyte % 51.6 % (19-41); Mean Corpuscular Hgb 27.7 pg (27.0-32.0); Mean Platelet Vol. 10.2 fl (6.2-12.0); Monocyte# 0.63 X10^3/uL; Monocyte% 9.4 % (0-10); Neutrophil # 2.37 X10^3/uL (2.7-7.7); Neutrophil % 35.4 % (47-70); Platelet Count 254 K/mm3 (150-450); White Blood Count 6.7 K/mm3 (4.4-11.0)
--- NOTE | 2017-10-26 00:40 | RAD_ITS ---
STUDY: X-RAY CHEST REASON FOR EXAM: Female, 62 years old. Chest pain TECHNIQUE: AP portable chest. COMPARISON: February 16, 2017. May 30, 2015. FINDINGS: The lungs are clear and expanded. There is no demonstrated pleural abnormality. Normal size heart. Normal mediastinum and nelson. Normal visualized pulmonary arteries. Normal visualized aortic arch and descending thoracic aorta. Normal visualized thoracic spine. Normal visualized ribs, clavicles, and shoulders. There is no demonstrated abnormality of the visualized soft tissue structures of the upper abdomen. RAD/Chest 1 View (Portable) IMPRESSION: Stable chest, no acute cardiopulmonary disease. Electronically Signed: Kam Desir MD at 1:00 EDT , Service support ,
--- NOTE | 2017-10-26 00:40 | ED.DCSUM_ITS ---
- ER Visit Summary Date of Service: 10/26/17 Chief Complaint: Palpitations, near syncope History of Present Illness: The patient is a 62 F with history of took a suitable cardiomyopathy presents to the emergency department with sudden onset palpitations and the sensation as she is going to pass out. Patient is in his normal state of health. She was actually admitted in February of last year with dyspnea and chest pain. She had a normal angiographic cardiac catheterization, but did have wall motion abnormality thought to be secondary to Takasubo cardiomyopathy. She had been on multiple medications, but they have been stopped in September. She states she been doing well. Over the past few weeks, she does admit to some exertional dyspnea. She states tonight, she woke and felt as if her heart was racing and can go back to sleep. States when she stood, she felt as if she was going to pass out. She has never had anything like this before. She denies any chest pain. Physical Examination: Vital signs reviewed General: Well-nourished, well-developed Head: Normocephalic, atraumatic Eyes: Pupils equal and reactive, extraocular muscles intact Neck, supple, no lymphadenopathy Heart: Regular rate and rhythm Respiratory: No distress, clear bilaterally Abdomen: Soft, nontender, nondistended, no peritoneal signs Back: Nontender Extremities: Nontender, no edema, no cords Skin: Normal color no rash Neuro: Alert and oriented, no focal or lateralizing deficits Test Results: [] Emergency Department Course and Treatment: The patient presents with symptomatic palpitations that woke him from sleep and felt as if she was going to pass out. She did have normal cardiac catheterization of her vasculature done within the past year. Her EKG shows no acute ischemic change. There is no dysrhythmia. The patient had resolution of symptoms on arrival. She has not had any chest pain. Her chest x-ray was unremarkable. Cardiac enzymes are normal. On reevaluation she is resting comfortably. I do feel that this is more likely symptomatically palpitations rather than a dangerous process, especially given her history of normal angiography. Patient was counseled on concerning symptoms and reasons to return. At this time, I do feel that she is safe for discharge. Treatment Plan: [] Disposition: Discharge Impression: 1. Systematic palpitations This note was generated with [employer] software. It may contain incorrect words, spelling, and punctuation that were not noted in review of the chart prior to signing ED Disposition - Plan for ED Patient: Chief Complaint: Chest Pain Instructions: ED Palpitations Referrals: Abraham Hair DO [Primary Care Provider] -
[2017-10-26 00:41] LABS: POSITIVE COUNT NO; POSITIVE DIFFERENTIAL NO; POSITIVE MORPHOLOGY NO
[2017-10-26] MEDS: 0.9% Normal Saline 1,000 ML 150 ML IV (00:41)
[2017-10-26] MEDS: Aspirin 81 MG TAB.CHEW 324 MG PO (00:41)
[2017-10-26 00:56] LABS: Anion Gap 6 (5-15); BUN 16 mg/dL (7-18); BUN/Creat Ratio 22.1 RATIO (10-20); Calcium,Total 9.1 mg/dL (8.5-10.1); Chloride 107 mmol/L (98-107); Creatinine, Serum 0.72 mg/dL (0.55-1.02); EST Glomerular Filtration Rate 87 mL/min (>60); Est Glom Filt Rate - Afr Amer 106 mL/min (>60); Glucose 93 mg/dL (74-106); Potassium 3.5 mmol/L (3.5-5.1); Sodium Level 140 mmol/L (136-145)
[2017-10-26 01:24] VITALS: PULSE 68; RESP 18; O2SAT 98
== END 2017-10-26 01:25 | disposition home or self-care (01) ==
LOC: ED 00:59
PROVIDERS: Emergency Provider Emergency Medicine; Family Provider Family Medicine; PCP Family Medicine
DX: R00.2 Palpitations (principal)
CPT/HCPCS: 71045; 80048; 84484; 85025; 93005; 96360; 99284; J7030; A4216

== ENCOUNTER → 2018-01-04 12:16 | Outpatient (CLI) | payer OTHER, SELFPAY ==
--- NOTE | 2018-01-04 12:26 | RAD_ITS ---
STUDY: X-RAY CHEST REASON FOR EXAM: Female, 62 years old. Cough for 7 weeks. TECHNIQUE: PA and lateral views of the chest. COMPARISON: October 26, 2017. FINDINGS: The lungs are hyperexpanded without infiltrate or mass. There is no demonstrated pleural abnormality. Normal size heart. Normal mediastinum and nelson. Normal visualized pulmonary arteries. Normal visualized aortic arch and descending thoracic aorta. Normal visualized thoracic spine. Normal visualized ribs, clavicles, and shoulders. There is no demonstrated abnormality of the visualized soft tissue structures of the upper abdomen. RAD/Chest PA and Lateral IMPRESSION: No acute cardiopulmonary disease or interval change. Electronically Signed: Colten Anguiano DO at 20:37 EDT Tel [phone], Service support ,
[2018-01-04 12:49] LABS: Absolute Lymphocyte Count 1.49 X10^3/ul (0.83-4.51); Absolute Neutrophil Count 5.5 X10^3/uL (2.0-7.7); Basophil# 0.03 X10^3/uL; Basophil% 0.4 % (0-1); Eosinophil# 0.16 X10^3/uL; Hematocrit 45.8 % (37-47); Lymphocyte # 1.49 X10^3/ul (4.0); Lymphocyte % 18.8 % (19-41); Mean Corp Hgb Conc 32.8 g/gl (32-36); Mean Corpuscular Hgb 27.8 pg (27.0-32.0); Mean Platelet Vol. 10.6 fl (6.2-12.0); Monocyte# 0.77 X10^3/uL; Monocyte% 9.7 % (0-10); Neutrophil # 5.48 X10^3/uL (2.7-7.7); Neutrophil % 69.1 % (47-70); POSITIVE COUNT NO; POSITIVE DIFFERENTIAL NO; POSITIVE MORPHOLOGY NO; Platelet Count 252 K/mm3 (150-450); RBC Distribution Width CV 13.2 % (11.6-14.6); RBC Distribution Width SD 40.5 fl (35.1-43.9); Red Blood Count 5.39 M/mm3 (4.2-5.4); White Blood Count 7.9 K/mm3 (4.4-11.0)
== END ==
PROVIDERS: Family Provider Family Medicine; PCP Family Medicine; Referring Provider Family Medicine; Visit Provider Family Medicine
DX: R05 Cough (principal); I51.81 Takotsubo syndrome
CPT/HCPCS: 36415; 71046; 85025

== ENCOUNTER 2018-03-20 19:26 | Observation (INO) | payer MEDICAID, SELFPAY ==
[2018-03-20] VITALS (7 sets, daily range): BP systolic 134–153; BP diastolic 88–116; PULSE 64–85; RESP 16–19; TEMP 36.7–36.8; O2SAT 96–99; BMI 23.5; BMI 24.0; BMI 24.1
--- NOTE | 2018-03-20 19:39 | ED.RN ---
RN CALLED FOR EKG, PULLED OLD EKGS FOR
--- NOTE | 2018-03-20 19:44 | EKG12_ITS ---
Test Reason : CP Blood Pressure : / mmHG Vent. Rate : 069 BPM Atrial Rate : 069 BPM P-R Int : 168 ms QRS Dur : 088 ms QT Int : 410 ms P-R-T Axes : 067 040 064 degrees QTc Int : 439 ms Normal sinus rhythm Normal ECG Confirmed by SUNDAY NINA, EYAL ([id number]), multimedia editor SASHA ROJAS ([id number]) on 03/24/2018 3:31:55 PM Referred By: HUGO Confirmed By:EYAL BRAND MD
--- NOTE | 2018-03-20 19:45 | RAD_ITS ---
STUDY: X-RAY CHEST REASON FOR EXAM: Female, 62 years old. Intermittent chest pain that started yesterday TECHNIQUE: AP COMPARISON: 01/04/2018 FINDINGS: EKG leads project over the chest. The lungs are clear and expanded. There is no demonstrated pleural abnormality. Normal size heart. Normal mediastinum and nelson. Normal visualized pulmonary arteries. There is atherosclerotic tortuosity of the aortic arch and descending thoracic aorta. No acute bony process. There is no demonstrated abnormality of the visualized soft tissue structures of the upper abdomen. RAD/Chest 1 View (Portable) IMPRESSION: 1. Stable, nonacute portable x-ray examination of the chest. Electronically Signed: Dewey Calloway MD at 20:08 EST , Service support ,
[2018-03-20 19:55] LABS: Absolute Lymphocyte Count 3.38 X10^3/ul (0.83-4.51); Absolute Neutrophil Count 2.4 X10^3/uL (2.0-7.7); Basophil# 0.04 X10^3/uL; Basophil% 0.6 % (0-1); Eosinophil# 0.18 X10^3/uL; Eosinophils% 2.8 % (0-5); Hematocrit 42.6 % (37-47); Hemoglobin 14.2 g/dl (12.0-15.0); Lymphocyte # 3.38 X10^3/ul (4.0); Lymphocyte % 51.7 % (19-41); Mean Corp Hgb Conc 33.3 g/gl (32-36); Mean Corpuscular Hgb 27.5 pg (27.0-32.0); Mean Corpuscular Volume 82.6 fL (81-99); Mean Platelet Vol. 10.3 fl (6.2-12.0); Monocyte# 0.59 X10^3/uL; Neutrophil # 2.35 X10^3/uL (2.7-7.7); Neutrophil % 35.9 % (47-70); Platelet Count 284 K/mm3 (150-450); RBC Distribution Width CV 13.2 % (11.6-14.6); RBC Distribution Width SD 40.1 fl (35.1-43.9); Red Blood Count 5.16 M/mm3 (4.2-5.4); White Blood Count 6.5 K/mm3 (4.4-11.0)
[2018-03-20 19:57] LABS: POSITIVE COUNT NO; POSITIVE DIFFERENTIAL NO; POSITIVE MORPHOLOGY NO
[2018-03-20 20:17] LABS: Anion Gap 8 (5-15); BUN 11 mg/dL (7-18); BUN/Creat Ratio 15.7 RATIO (10-20); Calcium,Total 8.9 mg/dL (8.5-10.1); Chloride 107 mmol/L (98-107); EST Glomerular Filtration Rate 91 mL/min (>60); Est Glom Filt Rate - Afr Amer 110 mL/min (>60); Estimated Creatinine Clearance 83.11 ml/min; Glucose 100 mg/dL (74-106); Potassium 3.4 mmol/L (3.5-5.1); Sodium Level 142 mmol/L (136-145)
--- NOTE | 2018-03-20 20:56 | ED.DCSUM_ITS ---
- ER Visit Summary Date of Service: 03/20/18 Chief Complaint: Chest pain History of Present Illness: The patient is a 62 F presenting with chest pain. Her chest pain has been intermittent since yesterday. Pain is in the midsternal region and radiates to her left shoulder. She has diaphoresis associated with this. Pain is a pressure 5 out of 10. Currently 0 out of 10. She does not recall anything that makes this better or worse. She has a history of takotsubo. She has no PE/DVT risk factors. She has a family history of early heart disease. She is not a smoker. Physical Examination: Vitals are stable. Patient is afebrile. Alert no acute distress. HEENT exam is unremarkable. Neck is supple. Lungs are clear and equal bilaterally. Heart is regular rate and rhythm. Abdomen is soft nontender nondistended. Extremities are unremarkable. Skin is warm and dry. No focal neurologic deficit. Remainder of exam is unremarkable. Emergency Department Course and Treatment: Patient was given aspirin on arrival. EKG is sinus rate of 69 with no acute ischemic changes. Chest x-ray shows no acute process. CBC, chemistries unremarkable. Troponin is negative. She is pain-free in the emergency department. Will discuss with the hospitalist for observation. Disposition: Observation Impression: Chest pain This note was generated with RealtimeBoard dictation software. It may contain incorrect words, spelling, and punctuation that were not noted in review of the chart prior to signing ED Disposition - Plan for ED Patient: Chief Complaint: Chest Pain Referrals: Abraham Hair DO [Primary Care Provider] -
[2018-03-20] MEDS: Aspirin 325 MG Tablet PO (21:13)
--- NOTE | 2018-03-20 21:19 | PCM.HP.STD ---
Problem List (1) Chest pain Status: Acute (2) Takotsubo cardiomyopathy Status: Resolved (3) History of non-ST elevation myocardial infarction (NSTEMI) Status: Chronic (4) Palpitations Status: Chronic History of Present Illness Date of Admission: 03/20/18 Chief Complaint: Chest pain The patient is a 62 year old female w/ h/o takotsubo, CAD, and palpitation is admitted for chest pain. She c/o left-sided chest pain. Pain is moderate. Pain is episodic and lasted for minutes. The intensity and frequency of the pain have increased over the past week. Nothing improved or worsened pain. Pain is not associated with food or exertion. She may have diaphoresis associated with pain. No palpitation. Pain radiated down the left arm. She noted increase stressors lately. She lives by herself. Past Medical History Past Medical History (Chronic Problems): Chronic Problems (Last Reviewed 09/29/17 @ 10:57 by Waldemar López MD) History of non-ST elevation myocardial infarction (NSTEMI) (Chronic 02/2017) Palpitations (Chronic) Medical History: Medical History (Last Reviewed 03/20/18 @ 21:30 by Tal Suggs MD) Takotsubo cardiomyopathy (Resolved) Onset Date: ~02/2017 I51.81 History of non-ST elevation myocardial infarction (NSTEMI) (Chronic) Onset Date: 02/2017 I25.2 Palpitations (Chronic) R00.2 Bronchitis (Resolved) J40 URI (upper respiratory infection) (Resolved) J06.9 Allergies potassium Allergy (Verified 03/20/18 19:28) Anaphylaxis PATIENT CAN TOLERATE PO POTASSIUM NOT IV, PATIENT STATES HEART STOPPED WHEN GIVEN IV POTASSIUM. codeine Adverse Reaction (Verified 03/20/18 19:28) Vomiting Home Medications: Ambulatory Orders Medication Instructions Recorded ascorbic acid (vitamin C) ER 1,000 1,000 mg PO BID tab 06/15/17 mg tablet,extended release multivitamin with iron-mineral 0.8 1 tab PO QDAY 09/29/17 mg oral combo pack Sertraline HCl [Zoloft] 12.5 mg PO DAILY 10/26/17 Surgical History: Surgical History (Last Reviewed 03/20/18 @ 21:30 by Tal Suggs MD) Status post left heart catheterization Onset Date: 11/14/17 Z98.890 H/O carpal tunnel repair Z98.890 History of salpingo-oophorectomy Z98.890, Z90.79, Z90.721 Hx of cataract extraction Z98.49 Surgical History: cataract, - - R carpal tunnel surgery, BL cataract, ABEBA (unilateral, unclear which side), Appendectomy. Psychiatric History: No pertinent psych hx [employer] History: No pertinent [employer] history Lives: Alone Smoking Status: Former smoker Tobacco Use: Non-smoker Alcohol: None Drugs: None - *Family History Maternal Family History: Family History (Last Reviewed 09/29/17 @ 10:57 by Waldemar López MD) Father Heart disease Mother Heart disease History Items: - - CHF, valvular disease Paternal Family History: Family History (Last Reviewed 09/29/17 @ 10:57 by Waldemar López MD) Father Heart disease Mother Heart disease History Items: Heart Disease Review of Systems Constitutional: Denies: Chills, Fever, Weight Change Eyes: Denies: Conjunctivae Inflammation, Double vision, Drainage HEENT: Denies: Head Aches, Sinus Congestion, Sinus Drainage Cardiovascular: Reports: Chest Pain. Denies: Palpitations Respiratory: Denies: Cough, Shortness of breath at rest, Sputum production Gastrointestinal: Denies: Abdominal Pain, Nausea, Vomiting Genitourinary: Denies: Dysuria Musculoskeletal: Denies: Joint Pain, Joint Tenderness Skin: Denies: Rash, Wounds Neurological: Denies: Numbness, Tingling, Focal weakness Psychiatric: Denies: Anxiety, Depression, Homicidal Ideations, Suicidal Ideations Hematologic/ Lymphatic: Denies: Easy Bruising, Easy Bleeding VTE Information - Inpt Only VTE Present on Admission: No VTE Mechan Device Prophylaxis: SCD's VTE Pharm Prophylaxis ordered?: Yes Patient Problems: Active and Suspected Problems (Last Reviewed 09/29/17 @ 10:57 by Waldemar López MD) Chest pain (Acute) - Physical Exam General: Alert, Oriented x3, Cooperative HEENT: Atraumatic, PERRLA, EOMI, Normocephalic Neck: Supple, No JVD, Negative Carotid Bruits Lungs: Clear to auscultation, Normal air movement Cardiovascular: Regular rate, No murmurs Abdomen: Bowel Sounds Present, Soft, Non Tender Extremities: No edema, Capillary Refill Less than 3 Seconds Skin: No rashes, No breakdown Musculoskeletal: No Tenderness to Palpation of Joints or Extremities Neurological: Cranial nerves II-XII grossly intact Psych/Mental Status: Normal Affect, Appropriate Vital Signs Temp Pulse Resp BP Pulse Ox 98.0 F 70 19 H 134/90 H 97 03/20/18 19:27 03/20/18 21:05 03/20/18 21:05 03/20/18 21:05 03/20/18 21:05 Oxygen Delivery Method Room Air Weight: 68.039 kg Body Mass Index (BMI) 23.5 Finger Stick Blood Glucose 116 Laboratory Tests Past 24 Hrs 03/20/18 03/20/18 19:47 19:47 WBC 6.5 RBC 5.16 Hgb 14.2 Hct 42.6 MCV 82.6 MCH 27.5 MCHC 33.3 RDW 13.2 RDW Differential 40.1 Plt Count 284 MPV 10.3 Immature Gran % (Auto) 0.000 Neut % (Auto) 35.9 L Lymph % (Auto) 51.7 H [place] % (Auto) 9.0 Eos % (Auto) 2.8 Baso % (Auto) 0.6 Absolute Neuts (auto) 2.4 Absolute Lymphs (auto) 3.38 Total Counted Not Reportable Sodium 142 Potassium 3.4 L Chloride 107 Carbon Dioxide 27.0 Anion Gap 8 BUN 11 Creatinine 0.70 Estim Creat Clear Calc 83.11 Est GFR (MDRD) Af Amer 110 Est GFR (MDRD) Non-Af 91 BUN/Creatinine Ratio 15.7 Glucose 100 Calcium 8.9 Troponin I < 0.015 Assessment/Plan All Active Problems (Last Reviewed 09/29/17 @ 10:57 by Waldemar López MD) Chest pain (Acute) Takotsubo cardiomyopathy (Resolved ~02/2017) Bronchitis (Resolved) URI (upper respiratory infection) (Resolved) 62 year old female w/ h/o takotsubo, CAD, and palpitation is admitted for chest pain. 1) Chest pain: Heart score 4 Trop negative. EKG unremarkable. Chest xray negative. Will get serial labs. Will get FLP and hemA1C. Will get ECHO and stress test in AM. 2) CAD: Resume home meds. 3) Prophylaxis: SCD / lovenox Code Visit OBSV E&M: 88346 Initial observation care L2
--- NOTE | 2018-03-20 21:56 | EKG12_ITS ---
Test Reason : ADMIS EKG Blood Pressure : / mmHG Vent. Rate : 059 BPM Atrial Rate : 059 BPM P-R Int : 182 ms QRS Dur : 088 ms QT Int : 442 ms P-R-T Axes : 048 043 040 degrees QTc Int : 437 ms Sinus bradycardia Otherwise normal ECG When compared with ECG of 26-OCT-2017 00:25, No significant change was found Confirmed by SUNDAY NINA, EYAL ([id number]), manuscript editor SASAH ROJAS ([id number]) on 03/24/2018 4:00:36 PM Referred By: JABIER Confirmed By:EYAL BRAND MD
[2018-03-20] MEDS: Metoprolol Tartrate 25 MG Tablet 12.5 MG PO (23:15)
[2018-03-20] MEDS: Heparin Injection (Vial) 5,000 UNIT/ML VIAL 5000 UNIT SC (23:16)
[2018-03-21] VITALS (12 sets, daily range): BP systolic 94–110; BP diastolic 60–74; PULSE 57–80; RESP 14–18; TEMP 36.7–36.9; O2SAT 97–99
--- NOTE | 2018-03-21 05:55 | EKG12_ITS ---
Test Reason : AM EKG Blood Pressure : / mmHG Vent. Rate : 058 BPM Atrial Rate : 058 BPM P-R Int : 204 ms QRS Dur : 086 ms QT Int : 458 ms P-R-T Axes : 065 070 060 degrees QTc Int : 449 ms Sinus bradycardia Otherwise normal ECG When compared with ECG of 20-MAR-2018 22:03, MANUAL COMPARISON REQUIRED, DATA IS UNCONFIRMED Confirmed by SUNDAY NINA, EYAL ([id number]), city editor SASHA ROJAS ([id number]) on 03/24/2018 3:59:35 PM Referred By: JABIER Confirmed By:EYAL BRAND MD
[2018-03-21 06:23] LABS: Hematocrit 39.1 % (37-47); Hemoglobin 12.9 g/dl (12.0-15.0); Mean Corpuscular Hgb 27.7 pg (27.0-32.0); Mean Corpuscular Volume 83.9 fL (81-99); Mean Platelet Vol. 11.2 fl (6.2-12.0); Platelet Count 256 K/mm3 (150-450); RBC Distribution Width CV 13.5 % (11.6-14.6); Red Blood Count 4.66 M/mm3 (4.2-5.4); White Blood Count 4.6 K/mm3 (4.4-11.0)
[2018-03-21] MEDS: Heparin Injection (Vial) 5,000 UNIT/ML VIAL 5000 UNIT SC ×3 (06:32→21:45)
[2018-03-21 06:35] LABS: Scan Indicated on CBC? Y/N NO
[2018-03-21 06:37] LABS: AST(SGOT) 21 U/L (15-37); Alanine Aminotransfer ALT/SGPT 42 U/L (13-56); Albumin, Serum 3.2 g/dL (3.2-5.0); Alkaline Phosphatase 109 U/L (45-117); Anion Gap 7 (5-15); BUN 11 mg/dL (7-18); BUN/Creat Ratio 16.5 RATIO (10-20); Calcium,Total 8.5 mg/dL (8.5-10.1); Chloride 110 mmol/L (98-107); Cholesterol 227 mg/dL (200); Creatinine, Serum 0.67 mg/dL (0.55-1.02); EST Glomerular Filtration Rate 96 mL/min (>60); Est Glom Filt Rate - Afr Amer 116 mL/min (>60); Estimated Creatinine Clearance 86.83 ml/min; Globulin 3.2 g/dL (2.2-4.2); Glucose 91 mg/dL (74-106); High Density Lipoprotein 44 mg/dL; Protein, Total 6.4 g/dL (6.4-8.2); Sodium Level 142 mmol/L (136-145); Thyroid Stim Hormone (TSH) 2.59 uIU/mL (0.358-3.74); Triglycerides 128 mg/dL; Very Low Density Lipoprotein 26 mg/dL (5-40)
[2018-03-21 06:45] LABS: D-Dimer Quantitative (DVT/PE) 0.41 FEU/ug/m (0.27-0.49)
--- NOTE | 2018-03-21 08:13 | PCM.PROGNOTE ---
Patient Problems: Active and Suspected Problems (Last Reviewed 03/20/18 @ 21:30 by Tal Suggs MD) Chest pain (Acute) Subjective: Chief complaint: Follow-up after admission for chest pain for evaluation. Patient seen and examined. No acute events overnight. She denied any more chest pain. Denied shortness of breath, palpitation, dizziness, lightheadedness, syncope or presyncope. Her vital signs are stable. - Physical Exam General: Alert, Oriented x3, Cooperative, No apparent distress HEENT: Atraumatic, PERRLA, EOMI, Normocephalic Oral: Moist Mucosa, No Gingival or Mucosal Lesions/ Ulcerations Neck: Supple, No JVD, Negative Carotid Bruits, Trachea Midline, Thyroid Normal Size and Texture Lungs: Clear to auscultation, Normal air movement, No rhonchi, No wheeze, No rales Cardiovascular: Regular rate, Regular Rhythm, Normal S1, Normal S2, No murmurs, PMI Normal Abdomen: Bowel Sounds Present, Soft, Non Tender, Non-Distended, No Hepato-splenomegaly Extremities: No clubbing, No cyanosis, No edema Skin: No rashes, No breakdown Lymphatic: No Cervical, Supraclavicular, or Inguinal Adenopathy Neurological: Cranial nerves II-XII grossly intact, Motor Exam 5/5 strength throughout Psych/Mental Status: Normal Affect, Appropriate, Alert and oriented to time, place, person, mood and affect Vital Signs Temp Pulse Resp BP Pulse Ox 98.3 F 70 18 109/69 97 03/21/18 04:00 03/21/18 07:00 03/21/18 04:00 03/21/18 04:00 03/21/18 04:00 Oxygen Delivery Method Room Air Weight: 153 lb 14.122 oz Body Mass Index (BMI) 24.0 Finger Stick Blood Glucose 116 Intake and Output for Last 24 Hours 03/19/18 03/20/18 03/21/18 23:59 23:59 23:59 Intake Total 400 / 400 240 / 240 Balance 400 / 400 240 / 240 Laboratory Tests Past 24 Hrs 03/20/18 03/20/18 03/20/18 19:47 19:47 22:45 WBC 6.5 RBC 5.16 Hgb 14.2 Hct 42.6 MCV 82.6 MCH 27.5 MCHC 33.3 RDW 13.2 RDW Differential 40.1 Plt Count 284 MPV 10.3 Immature Gran % (Auto) 0.000 Neut % (Auto) 35.9 L Lymph % (Auto) 51.7 H [place] % (Auto) 9.0 Eos % (Auto) 2.8 Baso % (Auto) 0.6 Absolute Neuts (auto) 2.4 Absolute Lymphs (auto) 3.38 Total Counted Not Reportable D-Dimer Quant (PE/DVT) Sodium 142 Potassium 3.4 L Chloride 107 Carbon Dioxide 27.0 Anion Gap 8 BUN 11 Creatinine 0.70 Estim Creat Clear Calc 83.11 Est GFR (MDRD) Af Amer 110 Est GFR (MDRD) Non-Af 91 BUN/Creatinine Ratio 15.7 Glucose 100 Calcium 8.9 Total Bilirubin AST ALT Alkaline Phosphatase Troponin I < 0.015 < 0.015 B-Natriuretic Peptide Total Protein Albumin Globulin Albumin/Globulin Ratio Triglycerides Cholesterol LDL Cholesterol VLDL Cholesterol HDL Cholesterol TSH 03/21/18 03/21/18 03/21/18 01:50 05:12 05:12 WBC 4.6 RBC 4.66 Hgb 12.9 Hct 39.1 MCV 83.9 MCH 27.7 MCHC 33.0 RDW 13.5 RDW Differential 41.0 Plt Count 256 MPV 11.2 Immature Gran % (Auto) Neut % (Auto) Lymph % (Auto) [place] % (Auto) Eos % (Auto) Baso % (Auto) Absolute Neuts (auto) Absolute Lymphs (auto) Total Counted D-Dimer Quant (PE/DVT) Sodium 142 Potassium 4.0 Chloride 110 H Carbon Dioxide 25.0 Anion Gap 7 BUN 11 Creatinine 0.67 Estim Creat Clear Calc 86.83 Est GFR (MDRD) Af Amer 116 Est GFR (MDRD) Non-Af 96 BUN/Creatinine Ratio 16.5 Glucose 91 Calcium 8.5 Total Bilirubin 1.30 H AST 21 ALT 42 Alkaline Phosphatase 109 Troponin I < 0.015 B-Natriuretic Peptide Total Protein 6.4 Albumin 3.2 Globulin 3.2 Albumin/Globulin Ratio 1.0 Triglycerides 128 Cholesterol 227 H LDL Cholesterol 157 H VLDL Cholesterol 26 HDL Cholesterol 44 TSH 2.59 03/21/18 03/21/18 05:12 05:12 WBC RBC Hgb Hct MCV MCH MCHC RDW RDW Differential Plt Count MPV Immature Gran % (Auto) Neut % (Auto) Lymph % (Auto) [place] % (Auto) Eos % (Auto) Baso % (Auto) Absolute Neuts (auto) Absolute Lymphs (auto) Total Counted D-Dimer Quant (PE/DVT) 0.41 Sodium Potassium Chloride Carbon Dioxide Anion Gap BUN Creatinine Estim Creat Clear Calc Est GFR (MDRD) Af Amer Est GFR (MDRD) Non-Af BUN/Creatinine Ratio Glucose Calcium Total Bilirubin AST ALT Alkaline Phosphatase Troponin I B-Natriuretic Peptide 36.0 Total Protein Albumin Globulin Albumin/Globulin Ratio Triglycerides Cholesterol LDL Cholesterol VLDL Cholesterol HDL Cholesterol TSH Clinical Impression(s) from Imaging Studies Chest X-Ray 03/20/18 19:45 IMPRESSION: 1. Stable, nonacute portable x-ray examination of the chest. Electronically Signed: Dewey Calloway MD at 20:08 EST , Service support , Medical Necessity - Tobacco Use Smoking Status: Former smoker Tobacco Use: Non-smoker Assessment/Plan All Active Problems (Last Reviewed 03/20/18 @ 21:30 by Tal Suggs MD) Chest pain (Acute) Takotsubo cardiomyopathy (Resolved ~02/2017) Bronchitis (Resolved) URI (upper respiratory infection) (Resolved) This is a 62 years old female patient admitted for chest pain for evaluation. #1 chest pain: Initial and repeat EKG revealed sinus bradycardia, no other acute ischemic findings. Troponin is negative x3. Chest x-ray showed no acute findings. Her risk factors are age, history of non-ST elevation MT and history of smoking in the past. Her vital signs are stable. She is on aspirin, statins, lisinopril and metoprolol. Plan for nuclear stress test tomorrow morning, 2D echocardiogram tomorrow as well. #2 history of non-ST elevation MT: She had cardiac catheterization back on February, that showed normal coronary arteries and ejection fraction of 35%. A repeat 2D echocardiogram on June, revealed ejection fraction of 55%. She is on aspirin, statins, beta-blockers and statins which was started during this admission. Plan as above. #3 Takotsubo cardiomyopathy: Without evidence of acute CHF, clinically stable, compensated. Plan for 2D echocardiogram as above. #4 depression: Continue Zoloft. #5 DVT prophylaxis: SCDs. This note was generated with Qosmosation software. It may contain incorrect words, spelling, and punctuation that were not noted in checking the note before signing. Code Visit OBSV E&M: 13233 Subsequent observation care L2
[2018-03-21] MEDS: Aspirin E.C. 81 MG Tablet PO (09:40)
[2018-03-21] MEDS: Metoprolol Tartrate 25 MG Tablet 12.5 MG PO ×2 (09:40→22:38)
[2018-03-21] MEDS: Lisinopril 5 MG Tablet PO (09:41)
[2018-03-21] MEDS: SERTRALINE HCL 25 MG TABLET 12.5 MG PO (09:41)
[2018-03-21] MEDS: 0.9% NaCl Peripheral Flush Adult/Peds IV (18:03)
[2018-03-22 03:09] VITALS: PULSE 60
[2018-03-22 03:17] VITALS: BP 81/55; PULSE 57; RESP 16; TEMP 36.6; O2SAT 97
[2018-03-22] MEDS: Ibuprofen 600 MG Tablet PO (04:06)
[2018-03-22] MEDS: 0.9% NaCl Peripheral Flush Adult/Peds IV (04:07)
[2018-03-22 05:17] VITALS: BP 100/57; PULSE 55; RESP 18; TEMP 36.7; O2SAT 98
[2018-03-22] MEDS: Aspirin E.C. 81 MG Tablet PO (05:25)
[2018-03-22] MEDS: Lisinopril 5 MG Tablet PO (05:34)
--- NOTE | 2018-03-22 05:55 | EKG12_ITS ---
Test Reason : AM EKG Blood Pressure : / mmHG Vent. Rate : 052 BPM Atrial Rate : 052 BPM P-R Int : 198 ms QRS Dur : 086 ms QT Int : 468 ms P-R-T Axes : 055 058 050 degrees QTc Int : 435 ms Sinus bradycardia Otherwise normal ECG When compared with ECG of 21-MAR-2018 05:10, MANUAL COMPARISON REQUIRED, DATA IS UNCONFIRMED Confirmed by SUNDAY NINA, EYAL ([id number]), technical editor SASHA ROJAS ([id number]) on 03/24/2018 3:55:10 PM Referred By: DANIAL Confirmed By:EYAL BRAND MD
[2018-03-22 05:59] LABS: Absolute Lymphocyte Count 2.58 X10^3/ul (0.83-4.51); Absolute Neutrophil Count 1.3 X10^3/uL (2.0-7.7); Basophil# 0.04 X10^3/uL; Basophil% 0.9 % (0-1); Eosinophil# 0.24 X10^3/uL; Eosinophils% 5.3 % (0-5); Hematocrit 39.3 % (37-47); Hemoglobin 12.9 g/dl (12.0-15.0); Lymphocyte # 2.58 X10^3/ul (4.0); Lymphocyte % 56.8 % (19-41); Mean Corp Hgb Conc 32.8 g/gl (32-36); Mean Corpuscular Hgb 27.8 pg (27.0-32.0); Mean Corpuscular Volume 84.7 fL (81-99); Mean Platelet Vol. 10.8 fl (6.2-12.0); Monocyte# 0.41 X10^3/uL; Neutrophil # 1.27 X10^3/uL (2.7-7.7); Platelet Count 245 K/mm3 (150-450); RBC Distribution Width CV 13.6 % (11.6-14.6); RBC Distribution Width SD 41.1 fl (35.1-43.9); Red Blood Count 4.64 M/mm3 (4.2-5.4); White Blood Count 4.5 K/mm3 (4.4-11.0)
[2018-03-22 06:04] LABS: POSITIVE COUNT NO; POSITIVE DIFFERENTIAL NO; POSITIVE MORPHOLOGY NO; Prothrombin Time (Protime)PT. 12.8 SECONDS (11.7-14.9)
[2018-03-22 06:05] LABS: Partial Thromboplast Time 35.2 Seconds (24.1-36.2)
[2018-03-22 06:07] LABS: Anion Gap 7 (5-15); BUN 11 mg/dL (7-18); Calcium,Total 8.3 mg/dL (8.5-10.1); Chloride 109 mmol/L (98-107); Creatinine, Serum 0.69 mg/dL (0.55-1.02); EST Glomerular Filtration Rate 93 mL/min (>60); Est Glom Filt Rate - Afr Amer 112 mL/min (>60); Estimated Creatinine Clearance 84.32 ml/min; Glucose 91 mg/dL (74-106); Potassium 4.1 mmol/L (3.5-5.1); Sodium Level 144 mmol/L (136-145)
[2018-03-22] MEDS: SERTRALINE HCL 25 MG TABLET 12.5 MG PO (09:03)
[2018-03-22 09:23] VITALS: PULSE 73
--- NOTE | 2018-03-22 09:36 | STRESSREP ---
Stress Test Report Exercise myocardial perfusion stress test. 62-year-old lady with a history of chest pain. Previous stress-induced cardiomyopathy. Medications vitamin C aspirin Lipitor lisinopril. Stress protocol: Resting EKG demonstrates normal sinus rhythm with rate of 61 bpm normal intervals are noted resting blood pressure 124/78 mmHg. The patient exercised according to regular Bradley protocol for total duration of 7 minutes and 30 seconds attaining a maximum heart rate of 153 bpm which was 95% of maximum predicted heart rate the maximum workload was 9.3 metabolic equivalents. The patient maintained sinus rhythm throughout the recording. At rest there were no ST or T wave changes noted suggest ischemia at peak exercise no ST or T wave changes were noted suggest ischemia the resting blood pressure 124/78 with a peak blood pressure 144/72. No clinical angina was noted the test was terminated due to leg fatigue. Myocardial perfusion protocol. 11.3 mCi of technetium 99m sestamibi was injected at rest. The patient exercised according to regular Bradley protocol for 7-1/2 minutes. At peak exercise 33.2 mCi of technetium 99m sestamibi was injected stress images were obtained stress and rest images were reconstructed and compared in the short axis vertical long and horizontal long axis. Gated images were also obtained Perfusion SPECT analysis: Review of the stress images demonstrate normal uptake of tracer noted in all areas of the myocardium. The resting images similarly demonstrate normal uptake of tracer noted in all areas of the myocardium. No areas of reversibility are noted suggest ischemia. Gated SPECT analysis: The gated ejection fraction is normal. Conclusion: Normal exercise myocardial perfusion stress test at a high workload. Preserved ejection fraction.
--- NOTE | 2018-03-22 10:45 | DCINST_ITS ---
- Discharge Diagnoses Current Active Problems: Current Active and Chronic Problems (Last Reviewed 03/20/18 @ 21:30 by Tal Suggs MD) Chest pain (Acute) You will use the following diet at home:: Cardiac Discharge Activity: Return to Normal Activity Instructions: ED Chest Pain NonCardiac Allergies/Adverse Reactions: Allergies potassium Allergy (Verified 03/20/18 19:28) Anaphylaxis PATIENT CAN TOLERATE PO POTASSIUM NOT IV, PATIENT STATES HEART STOPPED WHEN GIVEN IV POTASSIUM. codeine Adverse Reaction (Verified 03/20/18 19:28) Vomiting Medications to take at Discharge ascorbic acid (vitamin C) ER 1,000 mg tablet,extended release 1,000 mg PO BID tab 06/15/17 multivitamin with iron-mineral 0.8 mg oral combo pack 1 tab PO QDAY 09/29/17 Sertraline HCl [Zoloft] 12.5 mg PO DAILY 10/26/17 Atorvastatin Calcium [Lipitor] 20 mg PO QHS #30 tablet 03/22/18 Lisinopril [Zestril] 5 mg PO DAILY #30 tablet 03/22/18 The following prescriptions were given: Atorvastatin Calcium [Lipitor] 20 mg PO QHS #30 tablet Lisinopril [Zestril] 5 mg PO DAILY #30 tablet Primary Care Physician: Abraham Hair DO [Primary Care Provider] - Please follow up with your Primary Care Physician in: in 1-2 weeks Test Results: Test results from this visit will be discussed in further detail at your follow- up appointment, if applicable. Proposed Discharge Date: 03/22/18
--- NOTE | 2018-03-22 10:45 | PCM.DC.SUM ---
Discharge Date and Diagnosis - Problem List Patient Problems: Active and Suspected Problems (Last Reviewed 03/20/18 @ 21:30 by Tal Suggs MD) Chest pain (Acute) Date of Admission: 03/20/18 - Primary Discharge Diagnosis Active and Suspected Problems (Last Reviewed 03/20/18 @ 21:30 by Tal Suggs MD) Chest pain (Acute) - Secondary Discharge Diagnosis Chronic Problems (Last Reviewed 03/20/18 @ 21:30 by Tal Suggs MD) History of non-ST elevation myocardial infarction (NSTEMI) (Chronic 02/2017) Palpitations (Chronic) Hospital Course and Treatment Imaging Results: 03/22/18 05:55 Nuclear Stress Test - Treadmil [NM] Routine Operations: None Summary of Care Provided: The patient is a 62 year old F [] Patient Problems: Active and Suspected Problems (Last Reviewed 03/20/18 @ 21:30 by Tal Suggs MD) Chest pain (Acute) - Physical Exam Vital Signs Temp Pulse Resp BP Pulse Ox 98.1 F 73 18 100/57 L 98 03/22/18 05:17 03/22/18 09:23 03/22/18 05:17 03/22/18 05:17 03/22/18 05:17 Oxygen Delivery Method Room Air Weight: 69.8 kg Body Mass Index (BMI) 24.0 Finger Stick Blood Glucose 116 Intake and Output for Last 24 Hours 03/20/18 03/21/18 03/22/18 23:59 23:59 23:59 Intake Total 400 / 400 1590 / 1590 120 / 120 Balance 400 / 400 1590 / 1590 120 / 120 Laboratory Tests Past 24 Hrs 03/22/18 03/22/18 03/22/18 05:25 05:25 05:25 WBC 4.5 RBC 4.64 Hgb 12.9 Hct 39.3 MCV 84.7 MCH 27.8 MCHC 32.8 RDW 13.6 RDW Differential 41.1 Plt Count 245 MPV 10.8 Immature Gran % (Auto) 0.000 Neut % (Auto) 28.0 L Lymph % (Auto) 56.8 H [place] % (Auto) 9.0 Eos % (Auto) 5.3 H Baso % (Auto) 0.9 Absolute Neuts (auto) 1.3 L Absolute Lymphs (auto) 2.58 Total Counted Not Reportable PT 12.8 INR 1.0 APTT 35.2 Sodium 144 Potassium 4.1 Chloride 109 H Carbon Dioxide 28.0 Anion Gap 7 BUN 11 Creatinine 0.69 Estim Creat Clear Calc 84.32 Est GFR (MDRD) Af Amer 112 Est GFR (MDRD) Non-Af 93 BUN/Creatinine Ratio 16.0 Glucose 91 Calcium 8.3 L Discharge Activity: Return to Normal Activity Home Medications: Medications to take at Discharge ascorbic acid (vitamin C) ER 1,000 mg tablet,extended release 1,000 mg PO BID tab 06/15/17 multivitamin with iron-mineral 0.8 mg oral combo pack 1 tab PO QDAY 09/29/17 Sertraline HCl [Zoloft] 12.5 mg PO DAILY 10/26/17 Atorvastatin Calcium [Lipitor] 20 mg PO QHS #30 tablet 03/22/18 Lisinopril [Zestril] 5 mg PO DAILY #30 tablet 03/22/18 Following Prescrptions Were Given to Patient: Atorvastatin Calcium [Lipitor] 20 mg PO QHS #30 tablet Lisinopril [Zestril] 5 mg PO DAILY #30 tablet Primary Care Physician: Abraham Hair DO [Primary Care Provider] - Please follow up with your Primary Care Physician in: in 1-2 weeks Patient Instructions: ED Chest Pain NonCardiac Medical Necessity - Tobacco Use Smoking Status: Former smoker Tobacco Use: Non-smoker
--- NOTE | 2018-03-22 10:46 | PCM.DC.SUM ---
Discharge Date and Diagnosis - Problem List Patient Problems: Active and Suspected Problems (Last Reviewed 03/20/18 @ 21:30 by Tal Suggs MD) Chest pain (Acute) Date of Admission: 03/20/18 Date of Discharge: 03/22/18 - Primary Discharge Diagnosis Active and Suspected Problems (Last Reviewed 03/20/18 @ 21:30 by Tal Suggs MD) Chest pain (Acute) - Secondary Discharge Diagnosis Chronic Problems (Last Reviewed 03/20/18 @ 21:30 by Tal Suggs MD) History of non-ST elevation myocardial infarction (NSTEMI) (Chronic 02/2017) Palpitations (Chronic) Hospital Course and Treatment Imaging Results: 03/22/18 05:55 Nuclear Stress Test - Treadmil [NM] Routine Operations: None Summary of Care Provided: The patient is a 62 year old F who presented with chest pain 1. Chest pain patient was placed on a monitored bed DC was ruled out with serial cardiac enzymes underwent subsequent evaluation with a nuclear stress test which was negative for stress-induced ischemia 2. History of non-ST segment elevation DC coronary catheterization in February 2007 demonstrated normal coronaries with EF of 35% this was attributed to Takstubo cardiomyopathy. 3. Dyslipidemia patient LDL was 227 prescription was written for atorvastatin on discharge 4. Hypertension started on lisinopril 5. Depression patient is on SSRI Patient Problems: Active and Suspected Problems (Last Reviewed 03/20/18 @ 21:30 by Tal Suggs MD) Chest pain (Acute) - Physical Exam General: Alert HEENT: Atraumatic Neck: Supple Lungs: Clear to auscultation Cardiovascular: Regular rate, Regular Rhythm Vital Signs Temp Pulse Resp BP Pulse Ox 98.1 F 73 18 100/57 L 98 03/22/18 05:17 03/22/18 09:23 03/22/18 05:17 03/22/18 05:17 03/22/18 05:17 Oxygen Delivery Method Room Air Weight: 69.8 kg Body Mass Index (BMI) 24.0 Finger Stick Blood Glucose 116 Intake and Output for Last 24 Hours 03/20/18 03/21/18 03/22/18 23:59 23:59 23:59 Intake Total 400 / 400 1590 / 1590 120 / 120 Balance 400 / 400 1590 / 1590 120 / 120 Laboratory Tests Past 24 Hrs 03/22/18 03/22/18 03/22/18 05:25 05:25 05:25 WBC 4.5 RBC 4.64 Hgb 12.9 Hct 39.3 MCV 84.7 MCH 27.8 MCHC 32.8 RDW 13.6 RDW Differential 41.1 Plt Count 245 MPV 10.8 Immature Gran % (Auto) 0.000 Neut % (Auto) 28.0 L Lymph % (Auto) 56.8 H [place] % (Auto) 9.0 Eos % (Auto) 5.3 H Baso % (Auto) 0.9 Absolute Neuts (auto) 1.3 L Absolute Lymphs (auto) 2.58 Total Counted Not Reportable PT 12.8 INR 1.0 APTT 35.2 Sodium 144 Potassium 4.1 Chloride 109 H Carbon Dioxide 28.0 Anion Gap 7 BUN 11 Creatinine 0.69 Estim Creat Clear Calc 84.32 Est GFR (MDRD) Af Amer 112 Est GFR (MDRD) Non-Af 93 BUN/Creatinine Ratio 16.0 Glucose 91 Calcium 8.3 L Discharge Diet: Low fat/ Low Cholesterol Discharge Activity: Return to Normal Activity Home Medications: Medications to take at Discharge ascorbic acid (vitamin C) ER 1,000 mg tablet,extended release 1,000 mg PO BID tab 06/15/17 multivitamin with iron-mineral 0.8 mg oral combo pack 1 tab PO QDAY 09/29/17 Sertraline HCl [Zoloft] 12.5 mg PO DAILY 10/26/17 Atorvastatin Calcium [Lipitor] 20 mg PO QHS #30 tablet 03/22/18 Lisinopril [Zestril] 5 mg PO DAILY #30 tablet 03/22/18 Following Prescrptions Were Given to Patient: Atorvastatin Calcium [Lipitor] 20 mg PO QHS #30 tablet Lisinopril [Zestril] 5 mg PO DAILY #30 tablet Primary Care Physician: Abraham Hair DO [Primary Care Provider] - Please follow up with your Primary Care Physician in: in 1-2 weeks Patient Instructions: ED Chest Pain NonCardiac Minutes spent on discharge:: 35 Patient Condition:: Stable Medical Necessity - Tobacco Use Smoking Status: Former smoker Tobacco Use: Non-smoker Meaningful Use Info Meaningful Use Diagnoses (Choose all that apply): None applicable Code Visit OBSV E&M: 74656 Observation care discharge
[2018-03-22 10:55] VITALS: BP 100/59; PULSE 79; RESP 18; TEMP 36.7; O2SAT 97
--- NOTE | 2018-03-22 10:57 | DCINST_ITS ---
- Discharge Diagnoses Current Active Problems: Current Active and Chronic Problems (Last Reviewed 03/20/18 @ 21:30 by Tal Suggs MD) Chest pain (Acute) Discharge Activity: Return to Normal Activity Instructions: ED Chest Pain NonCardiac Allergies/Adverse Reactions: Allergies potassium Allergy (Verified 03/20/18 19:28) Anaphylaxis PATIENT CAN TOLERATE PO POTASSIUM NOT IV, PATIENT STATES HEART STOPPED WHEN GIVEN IV POTASSIUM. codeine Adverse Reaction (Verified 03/20/18 19:28) Vomiting Medications to take at Discharge ascorbic acid (vitamin C) ER 1,000 mg tablet,extended release 1,000 mg PO BID tab 06/15/17 multivitamin with iron-mineral 0.8 mg oral combo pack 1 tab PO QDAY 09/29/17 Sertraline HCl [Zoloft] 12.5 mg PO DAILY 10/26/17 Atorvastatin Calcium [Lipitor] 20 mg PO QHS #30 tablet 03/22/18 The following prescriptions were given: Atorvastatin Calcium [Lipitor] 20 mg PO QHS #30 tablet Primary Care Physician: Abraham Hair DO [Primary Care Provider] - Please follow up with your Primary Care Physician in: in 1-2 weeks Test Results: Test results from this visit will be discussed in further detail at your follow- up appointment, if applicable. Proposed Discharge Date: 03/22/18
--- OUTSIDE RECORDS SUMMARY | 2018-06-23 12:27 | XMS RPT_ITS ---
:1955 Author Organization OHIP Support Name Relationship Address Phone BALAS, ZEBULUN Unavailable . + [place] [address] SUSTAR, YOVANY Unavailable . + [place] [address] UE Unavailable Unavailable Unavailable BALAS, ZEBULUN Unavailable . + [place] [address] SUSTAR, YOVANY Unavailable . + [place] [address] UE Unavailable Unavailable Unavailable BALAS, ZEBULUN Unavailable Unavailable + [place] [address] SUSTAR, YOVANY Unavailable Unavailable + [place] [address] UE Unavailable Unavailable Unavailable BALAS, ZEBULUN Unavailable Unavailable + [place] [address] SUSTAR, YOVANY Unavailable Unavailable + [place] [address] UE Unavailable Unavailable Unavailable BALAS, ZEBULUN Unavailable Unavailable + [place] [address] SUSTAR, YOVANY Unavailable Unavailable + [place] [address] UE Unavailable Unavailable Unavailable BALAS, ZEBULUN Unavailable Unavailable + [place] [address] SUSTAR, YOVANY Unavailable Unavailable + [place] [address] UE Unavailable Unavailable Unavailable BALAS, ZEBULUN Unavailable Unavailable + [place] [address] SUSTAR, YOVANY Unavailable Unavailable + [place] [address] UE Unavailable Unavailable Unavailable BALAS, ZEBULUN Unavailable Unavailable + [place] [address] SUSTAR, YOVANY Unavailable Unavailable + [place] [address] UE Unavailable Unavailable Unavailable BALAS, ZEBULUN Unavailable Unavailable + [place] [address] SUSTAR, YOVANY Unavailable Unavailable + [place] [address] UE Unavailable Unavailable Unavailable BALAS, ZEBULUN Unavailable Unavailable + [place] [address] SUSTAR, YOVANY Unavailable Unavailable + [place] [address] [facility] Unavailable [address] + [place] [address] BALAS, ZEBULUN Unavailable Unavailable + [place] [address] SUSTAR, YOVANY Unavailable Unavailable + [place] [address] [facility] Unavailable [address] + [place] [address] BALAS, ZEBULUN Unavailable Unavailable + [place] [address] SUSTAR, YOVANY Unavailable Unavailable + [place] [address] [facility] Unavailable [address] + [place] [address] BALAS, ZEBULUN Unavailable . + [place] [address] SUSTAR, YOVANY Unavailable . + [place] [address] [facility] Unavailable [address] + [place] [address] BALAS, ZEBULUN Unavailable Unavailable + [place] [address] SUSTAR, YOVANY Unavailable Unavailable + [place] [address] [facility] Unavailable [address] + [place] [address] BALAS, ZEBULUN Unavailable Unavailable + [place] [address] SUSTAR, YOVANY Unavailable Unavailable + [place] [address] [facility] Unavailable [address] + [place] [address] BALAS, ZEBULUN Unavailable Unavailable + [place] [address] SUSTAR, YOVANY Unavailable Unavailable + [place] [address] [facility] Unavailable [address] + [place] [address] BALAS, ZEBULUN Unavailable Unavailable + [place] [address] SUSTAR, YOVANY Unavailable Unavailable + [place] [address] [facility] Unavailable [address] + [place] [address] BALAS, ZEBULUN Unavailable . + [place] [address] SUSTAR, YOVANY Unavailable . + [place] [address] [facility] Unavailable [address] + [place] [address] BALAS, ZEBULUN Unavailable . + [place] [address] SUSTAR, YOVANY Unavailable . + [place] [address] [facility] Unavailable [address] + [place] [address] BALAS, ZEBULUN Unavailable Unavailable + [place] [address] SUSTAR, YOVANY Unavailable Unavailable + [place] [address] [facility] Unavailable [address] + [place] [address] BALAS, ZEBULUN Unavailable Unavailable + [place] [address] SUSTAR, YOVANY Unavailable Unavailable + [place] [address] [facility] Unavailable [address] + [place] [address] BALAS, ZEBULUN Unavailable NA + [place] [address] SUSTAR, YOVANY Unavailable NA + [place] [address] [facility] Unavailable [address] + [place] [address] BALAS, ZEBULUN Unavailable NA + [place] [address] SUSTAR, YOVANY Unavailable NA + [place] [address] [facility] Unavailable [address] + [place] [address] SUSTAR, YOVANY Unavailable NA + [place] [address] [address] Unavailable [address] + [place] [address] SUSTAR, YOVANY Unavailable NA + [place] [address] [facility] Unavailable [address] + [place] [address] SUSTAR, YOVANY Unavailable NA + [place] [address] [facility] Unavailable [address] + [place] [address] BALAS, ZEBULUN Unavailable NA + [place] [address] SUSTAR, YOVANY Unavailable NA + [place] [address] [facility] Unavailable [address] + [place] [address] SUSTAR, YOVANY Unavailable NA + [place] [facility] Unavailable [address] + [place] [address] Care Team Providers Name Role Phone Mehdi Hair Primary Care Unavailable Jabier, Tal Admitting Unavailable Tj, Tracy Consulting Unavailable Red Leija Attending Unavailable Jabier, Tal Admitting Unavailable Jabier, Tal Attending Unavailable Mehdi Hair Primary Care Unavailable Jabier, Tal Consulting Unavailable Jabier, Tal Admitting Unavailable Hui Milner Attending Unavailable Mehdi Hair Primary Care Unavailable Tj, Tracy Consulting Unavailable Hui Milner Consulting Unavailable Jabier, Tal Admitting Unavailable Red Leija Attending Unavailable Mehdi Hair Primary Care Unavailable Red Leija Consulting Unavailable Mehdi Hair Attending Unavailable Mehdi Hair Primary Care Unavailable Mehdi Hair Referring Unavailable Waldemar López Attending Unavailable Annia, Ghasem Referring Unavailable Laxmi, Mehdi Attending Unavailable Laxmi, Mehdi Primary Care Unavailable Rene, Waldemar Attending Unavailable Rene, Waldemar Referring Unavailable Laxmi, Mehdi Primary Care Unavailable Celina Aguilar Attending Unavailable Laxmi, Mehdi Referring Unavailable Rene, Waldemar Attending Unavailable Rene, Wayland Referring Unavailable Laxmi, Mehdi Primary Care Unavailable Rene, Wayland Attending Unavailable Rene, Waldemar Referring Unavailable Laxmi, Mehdi Primary Care Unavailable Rene, Wayland Attending Unavailable Jabier, Tal Referring Unavailable Dossie, Domi Steward Attending Unavailable Laxmi, Mehdi Referring Unavailable DossieDomiCJoanne Attending Unavailable Laxmi, Mehdi Primary Care Unavailable Rene, Wayland Attending Unavailable Laxmi, Mehdi Primary Care Unavailable Rene, Wayland Attending Unavailable Laxmi, Mehdi Primary Care Unavailable Rene, Waldemar Referring Unavailable Rene, Waldemar Attending Unavailable Rene, Waldemar Referring Unavailable Roof, Syed H Attending Unavailable Roof, Syed H Referring Unavailable Laxmi, Mehdi Primary Care Unavailable Roof, Syed H Attending Unavailable Laxmi, Mehdi Primary Care Unavailable Rene, Wayland Attending Unavailable Laxmi, Mehdi Referring Unavailable Rene, Wayland Attending Unavailable Rene, Wayland Referring Unavailable Laxmi, Mehdi Primary Care Unavailable Laxmi, Mehdi Attending Unavailable Laxmi, Mehdi Referring Unavailable Laxmi, Mehdi Primary Care Unavailable Hebert Quinteros D.O. Attending Unavailable Rene, Wayland Attending Unavailable Rene, Wayland Referring Unavailable Laxmi, Mehdi Primary Care Unavailable Rene, Waldemar Attending Unavailable Laxmi, Mehdi Referring Unavailable Laxmi, Mehdi Primary Care Unavailable Rene, Wayland Attending Unavailable Rene, Waldemar Referring Unavailable Laxmi, Mehdi Primary Care Unavailable Laxmi, Mehdi Primary Care Unavailable Yaakov Sargent Attending Unavailable Laxmi, Mehdi Attending Unavailable Laxmi, Mehdi Referring Unavailable Laxmi, Mehdi Primary Care Unavailable PROBLEMS PROBLEMS DATE TYPE CONDITION / CODE ATTENDING STATUS SOURCE 04/14/2018 Unknown R23.2 - Flushing / [facility]di Hair [facility] 04/14/2018 Unknown M25.60 - Stiffness LaxmiMehdi hayes Active [facility] joint, not Hospital elsewhere Repository classified / M25.60(ICD-10) 04/14/2018 Unknown 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, Community unspecified / Hospital E27.9(ICD-10) Repository 04/14/2018 Unknown R53.82 - Chronic LaxmiMehdi hayes Active [place] fatigue, [facility] unspecified / Hospital R53.82(ICD-10) Repository 04/13/2018 Unknown R07.9 - Chest Rene, [place]land Active [facility] pain, unspecified Community / R07.9(ICD-10) Hospital Repository 04/14/2018 Unknown R00.1 - Rene, [place]land Active [facility] Bradycardia, Community unspecified / Hospital R00.1(ICD-10) Repository 04/14/2018 Unknown R07.89 - Other Rene, Wayland Active [facility] chest pain / Community R07.89(ICD-10) Hospital Repository 04/14/2018 Unknown I10 - Essential Rene, Waldemar Active [facility] (primary) Community hypertension / Hospital I10(ICD-10) Repository 04/14/2018 Unknown R00.2 - Rene, Wayland Active [facility] Palpitations / Community R00.2(ICD-10) Hospital Repository 01/04/2018 Unknown I51.81 - Takotsubo LaxmiMehdi hayes Active [place] syndrome / Community I51.81(ICD-10) Hospital Repository 01/04/2018 Unknown R05 - Cough / LaxmiMehdi hayes Active [facility] R05(ICD-10) [facility] Repository 10/12/2017 Unknown I25.2 - Old Rene, Wayland Active [place] myocardial Community infarction / Hospital I25.2(ICD-10) Repository 09/04/2017 Unknown I21.4 - Non-ST Rene, [place] Active [facility] elevation (NSTEMI) Community myocardial Hospital infarction / Repository I21.4(ICD-10) 09/01/2017 Unknown R06.09 - Other Hebert Brown, Active [facility] forms of dyspnea / D.O. Community R06.09(ICD-10) Hospital Repository 06/25/2017 Unknown Z95.5 - Presence Rene, Waldemar Active [facility] of coronary [facility] angioplasty Hospital implant and graft Repository / Z95.5(ICD-10) 03/31/2018 Unknown M54.2 - Mehdi Hair Active [facility] Cervicalgia / Community M54.2(ICD-10) Hospital Repository PROCEDURES PROCEDURES No Procedure Records FoundRESULTS RESULTS ERYTHROCYTE SED RATE Collected: 04/14/2018 Status: F Source: [place] 7:02 [facility] REPOSITORY TYPE CODE TESTS RESULT OUT OF RANGE REFERENCE UNITS LAB L102.0000 0-30 mm/hr Normal SED RATE 9 Performed By: #### L101.9900 #### [facility] [address] [place], [address] CRP Collected: 04/14/2018 Status: F Source: [place] 7:02 [facility] REPOSITORY TYPE CODE TESTS RESULT OUT OF RANGE REFERENCE UNITS LAB L501.6710 0.0-3.0 mg/L Normal < 2.90 C-REACTIVE PROT Result Comment: C-Reactive Protein (CRP) provides useful information for the diagnosis, therapy and monitoring of inflammatory processes and associated diseases. For the evaluation of Relative Risk for Cardiovascular Disease, a High Sensitivity CRP (HSCRP) should be ordered. Performed By: #### L501.6710, L505.7010, L3300.1750 #### [facility] [address] [place], [address] RHEUMATOID FACTOR Collected: 04/14/2018 Status: F Source: [place] 7:02 [facility] REPOSITORY TYPE CODE TESTS RESULT OUT OF RANGE REFERENCE UNITS LAB L505.7010 <15 IU/mL Normal RHEUMATOID FAC < 10.0 Performed By: #### L501.6710, L505.7010, L3300.1750 #### [facility] [address] [place], [address] ESTRADIOL Collected: 04/14/2018 Status: F Source: [place] 7:02 [facility] REPOSITORY TYPE CODE TESTS RESULT OUT OF RANGE REFERENCE UNITS LAB L3300.1750 pg/mL Normal ESTRADIOL 13.5 Result Comment: NORMAL REFERENCE RANGES FEMALE FOLLICULAR 21.4 - 164.8 pg/mL MID-CYCLE PEAK 49.9 - 367.2 pg/mL LUTEAL 40.2 - 259.0 pg/mL POST-MENOPAUSAL ON MHT <11.0 - 462.1 pg/mL NOT ON MHT <11.0 - 58.3 pg/mL MALE <11.0 - 52.5 pg/mL NOTE: [facility] HAS CONFIRMED THE DRUG FULVETRANT (FASLODEX) MAY CAUSE FALSELY ELEVATED ESTRADIOL RESULTS WHEN USING THIS TEST METHOD. IF PATIENT IS TAKING FULVESTRANT AN ALTERNATIVE METHOD SHOULD BE USED TO DETERMINE ESTRADIOL CONCENTRATION. Performed By: #### L501.6710, L505.7010, L3300.1750 #### [facility] [address] [place], [address] PROGESTERONE LEVEL Collected: 04/14/2018 Status: F Source: [place] 7:02 AM [facility] REPOSITORY TYPE CODE TESTS RESULT OUT OF REFERENCE UNITS RANGE LAB L509.4001 See Comment ng/mL Progesterone Normal 0.25 Result Comment: Progesterone Reference Table: UNITS Female: Follicular 0.15 - 1.40 ng/mL Luteal 3.34 - 25.56 ng/mL Mid-luteal 4.44 - 28.03 ng/mL Postmenopausal 0.0 - 0.73 ng/mL : 1st Trimester 11.22 - 90.00 ng/mL 2nd Trimester 25.55 - 89.40 ng/mL 3rd Trimester 48.40 -422.50 ng/mL Performed By: #### L509.4001, L509.6000 #### [facility] [address] [place], [place], [address] CORTISOL SERUM Collected: 04/14/2018 Status: F Source: [place] 7:02 AM [facility] REPOSITORY TYPE CODE TESTS RESULT OUT OF RANGE REFERENCE UNITS LAB L509.6000 3.09-22.40 ug/dL Normal CORTISOL 18.80 Result Comment: Adult (AM) 4.30 - 22.40 ug/dL Adult (PM) 3.09 - 16.66 ug/dL Performed By: #### L509.4001, L509.6000 #### [facility] [address] [place], [address] CORRINE W/ REFLEX MULT Collected: 04/14/2018 Status: F Source: [place] CONFIRM 7:02 AM [facility] REPOSITORY TYPE CODE TESTS RESULT OUT OF RANGE REFERENCE UNITS LAB L3100.5475 Negative Normal Negative CORRINE-DIRECT Result Comment: Performed at: [facility] [id number] Mri Assistant: Jeffery Shepherd PhD, Phone: [phone] Performed By: #### L3100.5450 #### [facility] (refer to report for specific site) refer to report for address and phone number TESTOSTERONE, TOTAL / Collected: 04/14/2018 Status: F Source: [place] FREE 7:02 AM [facility] REPOSITORY Order Comment: Has Patient had X-rays with Contrast this admission? N Has Patient had Radioactive Injection for X-ray?: N TYPE CODE TESTS RESULT OUT OF RANGE REFERENCE UNITS LAB L3100.5320 3-41 ng/dL Normal TESTOSTER,TOTAL 20 LAB L3100.5340 0.10-0.85 ng/dL Normal TESTOSTER,FREE 0.26 LAB L3100.5360 0.50-2.80 % Normal TESTOSTER %FREE 1.28 Performed By: #### L3100.5310, L3300.1500, L4600.0100 #### [facility] (refer to report for specific site) refer to report for address and phone number DHEA SULFATE Collected: 04/14/2018 Status: F Source: [place] 7:02 AM [facility] REPOSITORY Order Comment: Has Patient had X-rays with Contrast this admission? N Has Patient had Radioactive Injection for X-ray?: N TYPE CODE TESTS RESULT OUT OF RANGE REFERENCE UNITS LAB L3300.1500 29.4-220.5 ug/dL Normal DHEA SULF 42.7 4020 Performed By: #### L3100.5310, L3300.1500, L4600.0100 #### [facility] (refer to report for specific site) refer to report for address and phone number CCP IGG ANTIBODIES Collected: 04/14/2018 Status: F Source: [place] 7:02 AM [facility] REPOSITORY Order Comment: Has Patient had X-rays with Contrast this admission? N Has Patient had Radioactive Injection for X-ray?: N TYPE CODE TESTS RESULT OUT OF RANGE REFERENCE UNITS LAB L4600.0100 0-19 units Normal ANTI-CCP 8 [id number] Result Comment: Negative <20 Weak positive 20 - 39 Moderate positive 40 - 59 Strong positive >59 Performed at: [facility] [id number] Mri Assistant: Jeffery Shepherd PhD, Phone: [phone] Performed at: [facility] [address] [id number] Mri Assistant: Sid Vasquez MD, Phone: [phone] Performed By: #### L3100.5310, L3300.8627, L4600.0100 #### [facility] (refer to report for specific site) refer to report for address and phone number 12 LEAD ELECTROCARDIOGRAM Observed: 03/24/2018 Status: F Source: [place] 4:01 PM [facility] REPOSITORY [facility] [address] [place] [address] 12 Lead EKG 03/20/18 2203 MR#: [id number] Acct: [id number] Name: JOSE MEZA Rep #: [id number] : 1955 62 From: Waldemar López MD Attending Dr: Red Leija MD Status: DIS SINDY Ordering Dr: Tal Suggs MD Date: 03/20/18 Location: [facility] Sex: F C Admitted: 03/20/18 Test Reason : ADMIS EKG Blood Pressure : / mmHG Vent. Rate : 059 BPM Atrial Rate : 059 BPM P-R Int : 182 ms QRS Dur : 088 ms QT Int : 442 ms P-R-T Axes : 048 043 040 degrees QTc Int : 437 ms Sinus bradycardia Otherwise normal ECG When compared with ECG of 26-OCT-2017 00:25, No significant change was found Confirmed by RENE NINA, WALDEMAR ([id number]), video editor SASHA ROJAS ([id number]) on 03/24/2018 4:00:36 PM Referred By: JABIER Confirmed By:WALDEMAR LÓPEZ MD 03/24/18 1600 Date Waldemar López MD CC: Red Leija MD; Mehdi Hair DO; Tal Suggs MD Signed 12 LEAD ELECTROCARDIOGRAM Observed: 03/24/2018 Status: F Source: [place] 4:00 PM [facility] REPOSITORY [facility] [address] [place] [address] 12 Lead EKG 03/21/18 0510 MR#: [id number] Acct: [id number] Name: JOSE MEZA Rep #: [id number] : 1955 62 From: Waldemar López MD Attending Dr: Red Leija MD Status: DIS SINDY Ordering Dr: Tal Suggs MD Date: 03/21/18 Location: [facility] Sex: F C Admitted: 03/20/18 Test Reason : AM EKG Blood Pressure : / mmHG Vent. Rate : 058 BPM Atrial Rate : 058 BPM P-R Int : 204 ms QRS Dur : 086 ms QT Int : 458 ms P-R-T Axes : 065 070 060 degrees QTc Int : 449 ms Sinus bradycardia Otherwise normal ECG When compared with ECG of 20-MAR-2018 22:03, MANUAL COMPARISON REQUIRED, DATA IS UNCONFIRMED Confirmed by WALDEMAR LÓPEZ MD ([id number]), video editor SASHA ROJAS ([id number]) on 03/24/2018 3:59:35 PM Referred By: JABIER Confirmed By:WALDEMAR LÓPEZ MD 03/24/18 1559 Date Waldemar López MD CC: Red Leija MD; Mehdi Hair DO; Tal Suggs MD Signed 12 LEAD ELECTROCARDIOGRAM Observed: 03/24/2018 Status: F Source: [place] 3:55 PM [facility] REPOSITORY [facility] [address] [place] [address] 12 Lead EKG 03/22/18 0558 MR#: [id number] Acct: [id number] Name: JOSE MEZA Rep #: [id number] : 1955 62 From: Waldemar López MD Attending Dr: Red Leija MD Status: DIS SINDY Ordering Dr: Hui Milner MD Date: 03/22/18 Location: [facility] Sex: F C Admitted: 03/20/18 Test Reason : AM EKG Blood Pressure : / mmHG Vent. Rate : 052 BPM Atrial Rate : 052 BPM P-R Int : 198 ms QRS Dur : 086 ms QT Int : 468 ms P-R-T Axes : 055 058 050 degrees QTc Int : 435 ms Sinus bradycardia Otherwise normal ECG When compared with ECG of 21-MAR-2018 05:10, MANUAL COMPARISON REQUIRED, DATA IS UNCONFIRMED Confirmed by WALDEMAR LÓPEZ MD ([id number]), video editor SASHA ROJAS ([id number]) on 03/24/2018 3:55:10 PM Referred By: ANNIA Confirmed By:WALDEMAR LÓPEZ MD 03/24/18 1555 Date Waldemar López MD CC: Red Leija MD; Hui Milner; Mehdi Hair DO Signed 12 LEAD ELECTROCARDIOGRAM Observed: 03/24/2018 Status: F Source: [place] 3:32 PM [facility] REPOSITORY [facility] [address] [place] [address] 12 Lead EKG 03/20/181934 MR#: [id number] Acct: [id number] Name: JOSE MEZA Rep #: [id number] : 1955 62 From: Waldemar López MD Attending Dr: Red Leija MD Status: DIS SINDY Ordering Dr: Provider,Ed P. Date: 03/20/18 Location: [facility] Sex: F C Admitted: 03/20/18 Test Reason : CP Blood Pressure : / mmHG Vent. Rate : 069 BPM Atrial Rate : 069 BPM P-R Int : 168 ms QRS Dur : 088 ms QT Int : 410 ms P-R-T Axes : 067 040 064 degrees QTc Int : 439 ms Normal sinus rhythm Normal ECG Confirmed by WALDEMAR LÓPEZ MD ([id number]), video editor SASHA ROJAS ([id number]) on 03/24/2018 3:31:55 PM Referred By: HUGO Confirmed By:WALDEMAR LÓPEZ MD 03/24/18 1531 Date Waldemar López MD CC: Red Leija MD; ED PHYSICIAN PROVIDER; Mehdi Hair DO Signed DISCHARGE SUMMARY Observed: 03/23/2018 Status: F Source: [place] 4:21 PM [facility] REPOSITORY [facility] [address] [place] [address] Discharge Summary 03/23/18 1619 MR#: [id number] Acct: [id number] Name: JOSE MEZA Paola Rep #: [id number] : 1955 62 From: Michaela Silva PCP: Mehdi Hair DO Status: REG RCR Y Location: [facility] Discharge Summary: Initial Evaluation: 04/29/2017 Diagnosis: shoulder and neck pain No. of Visits: 2 Date of last visit: 05/20/2017 This patient is being discharged from our care at the [facility]. Thank you, Michaela Silva, T 03/23/18 1621 <Electronically signed by Michaela Silva > Date Michaela Silva [facility] Signature (if applicable): Date CC: Michaela Silva; Mehdi Hair DO Signed DISCHARGE SUMMARY Observed: 03/22/2018 Status: F Source: [place] 10:58 AM [facility] REPOSITORY [facility] [address] [place] [address] Discharge Summary 03/22/18 1046 MR#: [id number] Acct: [id number] Name: MEZAJOSE Rep #: [id number] : 1955 62 From: Red Leija MD PCP: Mehdi Hair DO Status: ADM SINDY Y Location: [place] [address] ADDENDUM by Red Leija MD on 03/22/18 at 1058 Code Visit Patient was not discharged home on lisinopril due to hypotension 03/22/18 1058 <Electronically signed by Red Leija MD> Date Red Leija MD cc: Red Leija MD; Mehdi Hair DO * Signed Discharge Date and Diagnosis - Problem List Patient Problems: Active and Suspected Problems (Last Reviewed 03/20/18 @ 21:30 by Tal Suggs MD) Chest pain (Acute) Date of Admission: 03/20/18 Date of Discharge: 03/22/18 - Primary Discharge Diagnosis Active and Suspected Problems (Last Reviewed 03/20/18 @ 21:30 by Tal Suggs MD) Chest pain (Acute) - Secondary Discharge Diagnosis Chronic Problems (Last Reviewed 03/20/18 @ 21:30 by Tal Suggs MD) History of non-ST elevation myocardial infarction (NSTEMI) (Chronic 02/2017) Palpitations (Chronic) Hospital Course and Treatment Imaging Results: 03/22/18 05:55 Nuclear Stress Test - Treadmil [NM] Routine Operations: None Summary of Care Provided: The patient is a 62 year old F who presented with chest pain 1. Chest pain patient was placed on a monitored bed AR was ruled out with serial cardiac enzymes underwent subsequent evaluation with a nuclear stress test which was negative for stress-induced ischemia 2. History of non-ST segment elevation AR coronary catheterization in February 2007 demonstrated normal coronaries with EF of 35% this was attributed to Takstubo cardiomyopathy. 3. Dyslipidemia patient LDL was 227 prescription was written for atorvastatin on discharge 4. Hypertension started on lisinopril 5. Depression patient is on SSRI Patient Problems: Active and Suspected Problems (Last Reviewed 03/20/18 @ 21:30 by Tal Suggs MD) Chest pain (Acute) - Physical Exam General: Alert HEENT: Atraumatic Neck: Supple Lungs: Clear to auscultation Cardiovascular: Regular rate, Regular Rhythm Vital Signs Temp Pulse Resp BP Pulse Ox 98.1 F 73 18 100/57 L 98 03/22/18 05:17 03/22/18 09:23 03/22/18 05:17 03/22/18 05:17 03/22/18 05:17 Oxygen Delivery Method Room Air Weight: 69.8 kg Body Mass Index (BMI) 24.0 Finger Stick Blood Glucose 116 Intake and Output for Last 24 Hours Intake Total 400 / 400 1590 / 1590 120 / 120 Balance 400 / 400 1590 / 1590 120 / 120 Laboratory Tests Past 24 Hrs Discharge Diet: Low fat/ Low Cholesterol Discharge Activity: Return to Normal Activity Home Medications: Medications to take at Discharge ascorbic acid (vitamin C) ER 1,000 mg tablet,extended release 1,000 mg PO BID tab 06/15/17 multivitamin with iron-mineral 0.8 mg oral combo pack 1 tab PO QDAY 09/29/17 Sertraline HCl [Zoloft] 12.5 mg PO DAILY 10/26/17 Atorvastatin Calcium [Lipitor] 20 mg PO QHS #30 tablet 03/22/18 Lisinopril [Zestril] 5 mg PO DAILY #30 tablet 03/22/18 Following Prescrptions Were Given to Patient: Atorvastatin Calcium [Lipitor] 20 mg PO QHS #30 tablet Lisinopril [Zestril] 5 mg PO DAILY #30 tablet Primary Care Physician: Mehdi Hair DO [Primary Care Provider] - Please follow up with your Primary Care Physician in: in 1- 2 weeks Patient Instructions: ED Chest Pain NonCardiac Minutes spent on discharge:: 35 Patient Condition:: Stable Medical Necessity - Tobacco Use Smoking Status: Former smoker Tobacco Use: Non-smoker Meaningful Use Info Meaningful Use Diagnoses (Choose all that apply): None applicable Code Visit OBSV E AND M: [id number] Observation care discharge 03/22/18 1049 <Electronically signed by Red Leija MD> Date Red Leija MD Cosigner Signature (if applicable): Date CC: Red Leija MD; Mehdi Hair DO Signed DISCHARGE INSTRUCTION Observed: 03/22/2018 Status: F Source: [place] 10:57 AM [facility] REPOSITORY [facility] Department [address] [place] [address] Instructions for Home/Discharge Instructions 03/22/181056 MR#: [id number] Acct: [id number] Name: JOSE MEZA Rep #: [id number] : 1955 62 From: Red Leija MD PCP: Mehdi Hair DO Status: ADM SINDY - Discharge Diagnoses Current Active Problems: Current Active and Chronic Problems (Last Reviewed 03/20/18 @ 21:30 by Tal Suggs MD) Chest pain (Acute) Discharge Activity: Return to Normal Activity Instructions: ED Chest Pain NonCardiac Allergies/Adverse Reactions: Allergies potassium Allergy (Verified 03/20/18 19:28) Anaphylaxis PATIENT CAN TOLERATE PO POTASSIUM NOT IV, PATIENT STATES HEART STOPPED WHEN GIVEN IV POTASSIUM. codeine Adverse Reaction (Verified 03/20/18 19:28) Vomiting Medications to take at Discharge ascorbic acid (vitamin C) ER 1,000 mg tablet,extended release 1,000 mg PO BID tab 06/15/17 multivitamin with iron-mineral 0.8 mg oral combo pack 1 tab PO QDAY 09/29/17 Sertraline HCl [Zoloft] 12.5 mg PO DAILY 10/26/17 Atorvastatin Calcium [Lipitor] 20 mg PO QHS #30 tablet 03/22/18 The following prescriptions were given: Atorvastatin Calcium [Lipitor] 20 mg PO QHS #30 tablet Primary Care Physician: Mehdi Hair DO [Primary Care Provider] - Please follow up with your Primary Care Physician in: in 1- 2 weeks Test Results: Test results from this visit will be discussed in further detail at your follow-up appointment, if applicable. Proposed Discharge Date: 03/22/18 03/22/181056 <Electronically signed by Red Leija MD> Date Red Leija MD CC: Mehdi Hair DO DISCHARGE INSTRUCTION Observed: 03/22/2018 Status: F Source: LUÍS 10:45 AM [facility] Medical Records Department [address] [place] [address] Instructions for Home/Discharge Instructions 03/22/181043 MR#: [id number] Acct: [id number] Name: JOSE MEZA Rep #: [id number] : 1955 62 From: Red Leija MD PCP: eMhdi Hair DO Status: ADM SINDY - Discharge Diagnoses Current Active Problems: Current Active and Chronic Problems (Last Reviewed 03/20/18 @ 21:30 by Tal Suggs MD) Chest pain (Acute) You will use the following diet at home:: Cardiac Discharge Activity: Return to Normal Activity Instructions: ED Chest Pain NonCardiac Allergies/Adverse Reactions: Allergies potassium Allergy (Verified 03/20/18 19:28) Anaphylaxis PATIENT CAN TOLERATE PO POTASSIUM NOT IV, PATIENT STATES HEART STOPPED WHEN GIVEN IV POTASSIUM. codeine Adverse Reaction (Verified 03/20/18 19:28) Vomiting Medications to take at Discharge ascorbic acid (vitamin C) ER 1,000 mg tablet,extended release 1,000 mg PO BID tab 06/15/17 multivitamin with iron-mineral 0.8 mg oral combo pack 1 tab PO QDAY 09/29/17 Sertraline HCl [Zoloft] 12.5 mg PO DAILY 10/26/17 Atorvastatin Calcium [Lipitor] 20 mg PO QHS #30 tablet 03/22/18 Lisinopril [Zestril] 5 mg PO DAILY #30 tablet 03/22/18 The following prescriptions were given: Atorvastatin Calcium [Lipitor] 20 mg PO QHS #30 tablet Lisinopril [Zestril] 5 mg PO DAILY #30 tablet Primary Care Physician: Mehdi Hair DO [Primary Care Provider] - Please follow up with your Primary Care Physician in: in 1- 2 weeks Test Results: Test results from this visit will be discussed in further detail at your follow-up appointment, if applicable. Proposed Discharge Date: 03/22/18 03/22/181044 <Electronically signed by Red Leija MD> Date Red Leija MD CC: Mehdi Hair DO STRESS REPORT Observed: 03/22/2018 Status: F Source: LUÍS 9:39 AM [facility] [address] [place] [address] MR#: [id number] Acct: [id number] Name: JOSE MEZA Rep #: [id number] : 1955 62 From: Waldemar López MD Primary Care: [facility] Mehdi MOROCHO Status: ADM SINDY Ordering Dr: Sex: F C Stress Test Report Exercise myocardial perfusion stress test. 62-year-old lady with a history of chest pain. Previous stress- induced cardiomyopathy. Medications vitamin C aspirin Lipitor lisinopril. Stress protocol: Resting EKG demonstrates normal sinus rhythm with rate of 61 bpm normal intervals are noted resting blood pressure 124/78 mmHg. The patient exercised according to regular Bradley protocol for total duration of 7 minutes and 30 seconds attaining a maximum heart rate of 153 bpm which was 95% of maximum predicted heart rate the maximum workload was 9.3 metabolic equivalents. The patient maintained sinus rhythm throughout the recording. At rest there were no ST or T wave changes noted suggest ischemia at peak exercise no ST or T wave changes were noted suggest ischemia the resting blood pressure 124/78 with a peak blood pressure 144/72. No clinical angina was noted the test was terminated due to leg fatigue. Myocardial perfusion protocol. 11.3 mCi of technetium 99m sestamibi was injected at rest. The patient exercised according to regular Bradley protocol for 7-1/2 minutes. At peak exercise 33.2 mCi of technetium 99m sestamibi was injected stress images were obtained stress and rest images were reconstructed and compared in the short axis vertical long and horizontal long axis. Gated images were also obtained Perfusion SPECT analysis: Review of the stress images demonstrate normal uptake of tracer noted in all areas of the myocardium. The resting images similarly demonstrate normal uptake of tracer noted in all areas of the myocardium. No areas of reversibility are noted suggest ischemia. Gated SPECT analysis: The gated ejection fraction is normal. Conclusion: Normal exercise myocardial perfusion stress test at a high workload. Preserved ejection fraction. 03/22/18 0939 <Electronically signed by Waldemar López MD> Date Waldemar López MD CC: Red Leija MD; Mehdi Hair DO Date Dictated: 03/22/18935 Date Transcribed: 03/22/18935 Business Excellence Leader: [place] Signed CBC W/DIFF, AUTOMATED Collected: 03/22/2018 Status: F Source: [place] 5:25 AM [facility] TYPE CODE TESTS RESULT OUT OF RANGE REFERENCE UNITS LAB L100.1000 4.4-11.0 K/mm3 Normal WBC 4.5 LAB L100.1200 4.2-5.4 M/mm3 Normal RBC 4.64 LAB L100.1300 12.0-15.0 g/dl Normal HGB 12.9 LAB L100.1400 37-47 % Normal HCT 39.3 LAB L100.1500 81-99 fL Normal MCV 84.7 LAB L100.1600 27.0-32.0 pg Normal MCH 27.8 LAB L100.1700 32-36 g/gl Normal MCHC 32.8 LAB L100.1810 11.6-14.6 % Normal RDW CV 13.6 LAB L100.1820 35.1-43.9 fl Normal RDW SD 41.1 LAB L100.1900 150-450 K/mm3 Normal PLT 245 LAB L100.2000 6.2-12.0 fl Normal MPV 10.8 LAB L100.2100 47-70 % Low NEUT% 28.0 LAB L100.2200 19-41 % High LY% 56.8 LAB L100.2300 0-10 % Normal MONO% 9.0 LAB L100.2400 0-5 % High EO% 5.3 LAB L100.2500 0-1 % Normal BASO% 0.9 LAB L100.2550 0.0-0.9 % Normal IM GRAN % 0.000 Result Comment: IG% - Immature Granulocytes (promyelocytes, myelocytes and metamyelocytes) > 1% indicates that a LEFT SHIFT is Present. LAB L100.2620 2.0-7.7 X10 3/uL Low Absolute Neut 1.3 LAB L100.2720 0.83-4.51 X10 3/ul Normal Absolute Lymph 2.58 Performed By: #### L100.0100 #### [facility] [address] [place], [address] PROTHROMBIN TIME W/INR Collected: 03/22/2018 Status: F Source: LUÍS 5:25 AM [facility] TYPE CODE TESTS RESULT OUT OF RANGE REFERENCE UNITS LAB L300.4150 11.7-14.9 SECONDS Normal PROTIME 12.8 LAB L300.4200 Normal INR 1.0 Performed By: #### L300.3900, L300.4310 #### [facility] [address] [place], [address] PARTIAL THROMBOPLAST Collected: 03/22/2018 Status: F Source: LUÍS TIME 5:25 AM [facility] TYPE CODE TESTS RESULT OUT OF RANGE REFERENCE UNITS LAB L300.4310 24.1-36.2 Seconds Normal PTT 35.2 Performed By: #### L300.3900, L300.4310 #### [facility] [address] [facility] [place], [address] BASIC METABOLIC Collected: 03/22/2018 Status: F Source: LUÍS PROFILE (BMP) 5:25 AM [facility] TYPE CODE TESTS RESULT OUT OF RANGE REFERENCE UNITS LAB L501.0100 74-106 mg/dL Normal GLU 91 Result Comment: Please note revised GLUCOSE reference range effective 2017. LAB L501.1000 7-18 mg/dL Normal BUN 11 LAB L501.1100 0.55-1.02 mg/dL Normal CREAT,SERUM 0.69 Result Comment: The validity of the calculated GFR AND GFRAA in patients over 70 years has not been determined. Clinical correlation is essential. LAB L501.1110 >60 mL/min Normal EST GFR 93 Result Comment: Non- GFR Calc LAB L501.1115 >60 mL/min Normal EST GFR - AA 112 Result Comment: GFR Calc LAB L501.1255 ml/min Normal Estimated CRCL 84.32 LAB L501.1300 10-20 RATIO Normal BUN/CRE 16.0 LAB L501.2200 8.5-10 mg/dL Low .1 CA 8.3 LAB L501.5300 136-14 mmol/L Normal 5 NA 144 LAB L501.5600 3.5-5. mmol/L Normal 1 K 4.1 LAB L501.5900 98-107 mmol/L High CL 109 LAB L501.6100 21.0-3 mmol/L Normal 2.0 CO2 28.0 LAB L501.6200 5-15 Normal GAP 7 Performed By: #### L500.2500 #### [facility] [address] [place], [place], [address] CBC-COMPLETE BLOOD CNT Collected: 03/21/2018 Status: F Source: LUÍS NO DIFF 5:12 AM [facility] TYPE CODE TESTS RESULT OUT OF RANGE REFERENCE UNITS LAB L100.1000 4.4-11.0 K/mm3 Normal WBC 4.6 LAB L100.1200 4.2-5.4 M/mm3 Normal RBC 4.66 LAB L100.1300 12.0-15.0 g/dl Normal HGB 12.9 LAB L100.1400 37-47 % Normal HCT 39.1 LAB L100.1500 81-99 fL Normal MCV 83.9 LAB L100.1600 27.0-32.0 pg Normal MCH 27.7 LAB L100.1700 32-36 g/gl Normal MCHC 33.0 LAB L100.1810 11.6-14.6 % Normal RDW CV 13.5 LAB L100.1820 35.1-43.9 fl Normal RDW SD 41.0 LAB L100.1900 150-450 K/mm3 Normal PLT 256 LAB L100.2000 6.2-12.0 fl Normal MPV 11.2 Performed By: #### L100.0500 #### [facility] [address] [place], [place], [address] COMPREHENSIVE METABOLIC Collected: 03/21/2018 Status: F Source: LUÍS PROFIL 5:12 AM [facility] TYPE CODE TESTS RESULT OUT OF RANGE REFERENCE UNITS LAB L501.0100 74-106 mg/dL Normal GLU 91 Result Comment: Please note revised GLUCOSE reference range effective 2017. LAB L501.1000 7-18 mg/dL Normal BUN 11 LAB L501.1100 0.55-1.02 mg/dL Normal CREAT,SERUM 0.67 Result Comment: The validity of the calculated GFR AND GFRAA in patients over 70 years has not been determined. Clinical correlation is essential. LAB L501.1110 >60 mL/min Normal EST GFR 96 Result Comment: Non- GFR Calc LAB L501.1115 >60 mL/min Normal EST GFR - AA 116 Result Comment: GFR Calc LAB L501.1255 ml/min Normal Estimated CRCL 86.83 LAB L501.1300 10-20 RATIO Normal BUN/CRE 16.5 LAB L501.1500 6.4-8. g/dL Normal 2 T PROT 6.4 LAB L501.1800 3.2-5. g/dL Normal 0 ALB 3.2 LAB L501.1950 2.2-4. g/dL Normal 2 GLOB 3.2 LAB L501.2000 0.9-2. RATIO Normal 4 A/G 1.0 LAB L501.2200 8.5-10 mg/dL Normal .1 CA 8.5 LAB L501.4100 15-37 U/L Normal AST 21 LAB L501.4305 45-117 U/L Normal ALK P 109 LAB L501.4405 13-56 U/L Normal ALT 42 LAB L501.4600 0.20-1 mg/dL High .00 T BILI 1.30 LAB L501.5300 136-14 mmol/L Normal 5 NA 142 LAB L501.5600 3.5-5. mmol/L Normal 1 K 4.0 LAB L501.5900 98-107 mmol/L High CL 110 LAB L501.6100 21.0-3 mmol/L Normal 2.0 CO2 25.0 LAB L501.6200 5-15 Normal GAP 7 Performed By: #### L500.4050, L500.4100, L501.9520 #### [facility] [address] [place], [place], [address] LIPID PROFILE Collected: 03/21/2018 Status: F Source: [place] 5:12 AM [facility] TYPE CODE TESTS RESULT OUT OF RANGE REFERENCE UNITS LAB L501.4900 200 mg/dL High CHOL 227 Result Comment: <200 mg/dL Desirable 200-240 mg/dL Borderline >240 mg/dL High Risk LAB L501.5000 mg/dL Normal TRIG 128 Result Comment: The drugs N-Acetylcysteine and Metamizole may falsely depress this assay. Serum Triglycerides Reference Interval Normal <150 mg/dL Borderline high 150 - 199 mg/dL High 200 - 499 mg/dL Very High > or = 500 mg/dL LAB L501.6400 mg/dL Normal HDL 44 Result Comment: The drugs N-Acetylcysteine and Metamizole may falsely depress this assay. Reference Range HDL <40 mg/dL Low HDL Cholesterol HDL >or= 60 mg/dL High HDL Cholesterol LAB L501.6500 0-130 mg/dL High LDL 157 LAB L501.6600 5-40 mg/dL Normal VLDL 26 Performed By: #### L500.4050, L500.4100, L501.9520 #### [facility] [address] [place], [place], [id number] THYROID STIM HORMONE Collected: 03/21/2018 Status: F Source: LUÍS (TSH) 5:12 AM [facility] TYPE CODE TESTS RESULT OUT OF RANGE REFERENCE UNITS LAB L501.9520 0.358-3.74 uIU/mL Normal TSH 2.59 Performed By: #### L500.4050, L500.4100, L501.9520 #### [facility] [address] [place], [place], [id number] D-DIMER QUANTITATIVE Collected: 03/21/2018 Status: F Source: LUÍS (DVT/PE) 5:12 AM [facility] TYPE CODE TESTS RESULT OUT OF RANGE REFERENCE UNITS LAB L300.8000 0.27-0.49 FEU/ug/m Normal D-DIMER 0.41 QUANT Result Comment: NORMAL D-Dimer level (<0.50) indicates no DVT or PE. Performed By: #### L300.8000 #### [facility] [address] [place], [address] BNP,B-TYPE NATRIURETIC Collected: 03/21/2018 Status: F Source: LUÍS PEPTIDE 5:12 AM [facility] TYPE CODE TESTS RESULT OUT OF RANGE REFERENCE UNITS LAB L503.6620 0-100 pg/mL Normal B-TYPE 36.0 ELIAZAR PEP Performed By: #### L503.6620 #### [facility] [address] [place], [address] TROPONIN-I Collected: 03/21/2018 Status: F Source: LUÍS 1:50 AM [facility] Order Comment: 'TROP' Serial specimen #1, #2 or #3: 3 TYPE CODE TESTS RESULT OUT OF RANGE REFERENCE UNITS LAB L501.4010 <0.045 ng/mL Normal < 0.015 TROPONIN-I Result Comment: TROPONIN-I EXPECTED VALUES <0.045 Negative 0.045 - 0.590 Consistent with Cardiac Damage > OR = 0.600 Critical Value Not every elevated troponin is indicative of AR. These values should be used with clinical judgement in examining the patient's clinical picture for diagnosis. To establish a diagnosis of AR versus myocardial injury, there must be a demonstrated rise and/or fall in the troponin values, in addition to ischemic symptoms, EKG changes, new regional wall motion abnormality, and/or angiographical evidence. PLEASE NOTE: REFERENCE RANGES EDITED 17 Performed By: #### L501.4010 #### [facility] [address] [place], [address] TROPONIN-I Collected: 03/20/2018 Status: F Source: LUÍS 10:45 PM [facility] Order Comment: 'TROP' Serial specimen #1, #2 or #3: 2 TYPE CODE TESTS RESULT OUT OF RANGE REFERENCE UNITS LAB L501.4010 <0.045 ng/mL Normal < 0.015 TROPONIN-I Result Comment: TROPONIN-I EXPECTED VALUES <0.045 Negative 0.045 - 0.590 Consistent with Cardiac Damage > OR = 0.600 Critical Value Not every elevated troponin is indicative of AR. These values should be used with clinical judgement in examining the patient's clinical picture for diagnosis. To establish a diagnosis of AR versus myocardial injury, there must be a demonstrated rise and/or fall in the troponin values, in addition to ischemic symptoms, EKG changes, new regional wall motion abnormality, and/or angiographical evidence. PLEASE NOTE: REFERENCE RANGES EDITED 17 Performed By: #### L501.4010 #### [facility] [address] [place], [address] HISTORY AND PHYSICAL Observed: 03/20/2018 Status: F Source: LUÍS EXAM 9:43 PM [facility] Medical Records Department [address] [place] [address] History and Physical 03/20/182118 MR#: [id number] Acct: [id number] Name: JOSE MEZA Rep #: [id number] : 1955 62 From: Tal Suggs MD PCP: Mehdi Hair DO Status: ADM SINDY Y Location: [place] [address] Problem List (1) Chest pain Status: Acute (2) Takotsubo cardiomyopathy Status: Resolved (3) History of non-ST elevation myocardial infarction (NSTEMI) Status: Chronic (4) Palpitations Status: Chronic History of Present Illness Date of Admission: 03/20/18 Chief Complaint: Chest pain The patient is a 62 year old female w/ h/o takotsubo, CAD, and palpitation is admitted for chest pain. She c/o left-sided chest pain. Pain is moderate. Pain is episodic and lasted for minutes. The intensity and frequency of the pain have increased over the past week. Nothing improved or worsened pain. Pain is not associated with food or exertion. She may have diaphoresis associated with pain. No palpitation. Pain radiated down the left arm. She noted increase stressors lately. She lives by herself. Past Medical History Past Medical History (Chronic Problems): Chronic Problems (Last Reviewed 09/29/17 @ 10:57 by Waldemar López MD) History of non-ST elevation myocardial infarction (NSTEMI) (Chronic 02/2017) Palpitations (Chronic) Medical History: Medical History (Last Reviewed 03/20/18 @ 21:30 by Tal Suggs MD) Takotsubo cardiomyopathy (Resolved) Onset Date: 02/2017 I51.81 History of non-ST elevation myocardial infarction (NSTEMI) (Chronic) Onset Date: 02/2017 I25.2 Palpitations (Chronic) R00.2 Bronchitis (Resolved) J40 URI (upper respiratory infection) (Resolved) J06.9 Allergies potassium Allergy (Verified 03/20/18 19:28) Anaphylaxis PATIENT CAN TOLERATE PO POTASSIUM NOT IV, PATIENT STATES HEART STOPPED WHEN GIVEN IV POTASSIUM. codeine Adverse Reaction (Verified 03/20/18 19:28) Vomiting Home Medications: Ambulatory Orders Medication Instructions Recorded ascorbic acid (vitamin C) ER 1,000 1,000 mg PO BID tab 06/15/17 Surgical History: Surgical History (Last Reviewed 03/20/18 @ 21:30 by Tal Suggs MD) Status post left heart catheterization Onset Date: 02/17/17 Z98.890 H/O carpal tunnel repair Z98.890 History of salpingo-oophorectomy Z98.890, Z90.79, Z90.721 Hx of cataract extraction Z98.49 Surgical History: cataract, - - R carpal tunnel surgery, BL cataract, ABEBA (unilateral, unclear which side), Appendectomy. 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 Lives: Alone Smoking Status: Former smoker Tobacco Use: Non-smoker Alcohol: None Drugs: None - *Family History Maternal Family History: Family History (Last Reviewed 09/29/17 @ 10:57 by Waldemar López MD) Father Heart disease Mother Heart disease History Items: - - CHF, valvular disease Paternal Family History: Family History (Last Reviewed 09/29/17 @ 10:57 by Waldemar López MD) Father Heart disease Mother Heart disease History Items: Heart Disease Review of Systems Constitutional: Denies: Chills, Fever, Weight Change Eyes: Denies: Conjunctivae Inflammation, Double vision, Drainage HEENT: Denies: Head Aches, Sinus Congestion, Sinus Drainage Cardiovascular: Reports: Chest Pain. Denies: Palpitations Respiratory: Denies: Cough, Shortness of breath at rest, Sputum production Gastrointestinal: Denies: Abdominal Pain, Nausea, Vomiting Genitourinary: Denies: Dysuria Musculoskeletal: Denies: Joint Pain, Joint Tenderness Skin: Denies: Rash, Wounds Neurological: Denies: Numbness, Tingling, Focal weakness Psychiatric: Denies: Anxiety, Depression, Homicidal Ideations, Suicidal Ideations Hematologic/ Lymphatic: Denies: Easy Bruising, Easy Bleeding VTE Information - Inpt Only VTE Present on Admission: No VTE Mechan Device Prophylaxis: SCD's VTE Pharm Prophylaxis ordered?: Yes Patient Problems: Active and Suspected Problems (Last Reviewed 09/29/17 @ 10:57 by Waldemar López MD) Chest pain (Acute) - Physical Exam General: Alert, Oriented x3, Cooperative HEENT: Atraumatic, PERRLA, EOMI, Normocephalic Neck: Supple, No JVD, Negative Carotid Bruits Lungs: Clear to auscultation, Normal air movement Cardiovascular: Regular rate, No murmurs Abdomen: Bowel Sounds Present, Soft, Non Tender Extremities: No edema, Capillary Refill Less than 3 Seconds Skin: No rashes, No breakdown Musculoskeletal: No Tenderness to Palpation of Joints or Extremities Neurological: Cranial nerves II-XII grossly intact Psych/Mental Status: Normal Affect, Appropriate Vital Signs Temp Pulse Resp BP Pulse Ox 98.0 F 70 19 H 134/90 H 97 03/20/18 19:27 03/20/18 21:05 03/20/18 21:05 03/20/18 21:05 03/20/18 21:05 Oxygen Delivery Method Room Air Weight: 68.039 kg Body Mass Index (BMI) 23.5 Finger Stick Blood Glucose 116 Laboratory Tests Past 24 Hrs WBC 6.5 RBC 5.16 Hgb 14.2 Hct 42.6 MCV 82.6 MCH 27.5 MCHC 33.3 RDW 13.2 RDW Differential 40.1 Assessment/Plan All Active Problems (Last Reviewed 09/29/17 @ 10:57 by Waldemar López MD) Chest pain (Acute) Takotsubo cardiomyopathy (Resolved 02/2017) Bronchitis (Resolved) URI (upper respiratory infection) (Resolved) 62 year old female w/ h/o takotsubo, CAD, and palpitation is admitted for chest pain. 1) Chest pain: Heart score 4 Trop negative. EKG unremarkable. Chest xray negative. Will get serial labs. Will get FLP and hemA1C. Will get ECHO and stress test in AM. 2) CAD: Resume home meds. 3) Prophylaxis: SCD / lovenox Code Visit OBSV E AND M: 14415 Initial observation care L2 03/20/182142 <Electronically signed by Tal Suggs MD> Date Tal Suggs MD Cosigner Signature: Date (if applicable) CC: Mehdi Hair DO; Tal Suggs MD Signed EMERGENCY DEPARTMENT Observed: 03/20/2018 Status: F Source: [place] SUMMARY 9:09 PM [facility] Medical Records Department [address] [place] [address] Emergency Department Summary 03/20/182052 MR#: [id number] Acct: [id number] Name: JOSE MEZA Rep #: [id number] : 1955 62 From: Ruby Klein MD PCP: Mehdi Hair DO Status: REG ER - ER Visit Summary Date of Service: 03/20/18 Chief Complaint: Chest pain History of Present Illness: The patient is a 62 F presenting with chest pain. Her chest pain has been intermittent since yesterday. Pain is in the midsternal region and radiates to her left shoulder. She has diaphoresis associated with this. Pain is a pressure 5 out of 10. Currently 0 out of 10. She does not recall anything that makes this better or worse. She has a history of takotsubo. She has no PE/DVT risk factors. She has a family history of early heart disease. She is not a smoker. Physical Examination: Vitals are stable. Patient is afebrile. Alert no acute distress. HEENT exam is unremarkable. Neck is supple. Lungs are clear and equal bilaterally. Heart is regular rate and rhythm. Abdomen is soft nontender nondistended. Extremities are unremarkable. Skin is warm and dry. No focal neurologic deficit. Remainder of exam is unremarkable. Emergency Department Course and Treatment: Patient was given aspirin on arrival. EKG is sinus rate of 69 with no acute ischemic changes. Chest x-ray shows no acute process. CBC, chemistries unremarkable. Troponin is negative. She is pain- free in the emergency department. Will discuss with the hospitalist for observation. Disposition: Observation Impression: Chest pain This note was generated with [employer] dictation software. It may contain incorrect words, spelling, and punctuation that were not noted in review of the chart prior to signing ED Disposition - Plan for ED Patient: Chief Complaint: Chest Pain Referrals: Mehdi Hair, [Primary Care Provider] - What to do if you have Problems For any increased pain, shortness of breath, bleeding, nausea or vomiting, chest pain, or any unexpected problems, contact your Primary Care Provider. Call [facility] ([phone]) or report to the closest Emergency Room. Call 911 if necessary. 03/20/186 <Electronically signed by Ruby Klein MD> Date Ruby Klein MD Cosigner Signature (If Indicated): Date CC: Mehdi Hair DO CBC W/DIFF, AUTOMATED Collected: 03/20/2018 Status: F Source: [place] 7:47 PM [facility] TYPE CODE TESTS RESULT OUT OF RANGE REFERENCE UNITS LAB L100.1000 4.4-11.0 K/mm3 Normal WBC 6.5 LAB L100.1200 4.2-5.4 M/mm3 Normal RBC 5.16 LAB L100.1300 12.0-15.0 g/dl Normal HGB 14.2 LAB L100.1400 37-47 % Normal HCT 42.6 LAB L100.1500 81-99 fL Normal MCV 82.6 LAB L100.1600 27.0-32.0 pg Normal MCH 27.5 LAB L100.1700 32-36 g/gl Normal MCHC 33.3 LAB L100.1810 11.6-14.6 % Normal RDW CV 13.2 LAB L100.1820 35.1-43.9 fl Normal RDW SD 40.1 LAB L100.1900 150-450 K/mm3 Normal PLT 284 LAB L100.2000 6.2-12.0 fl Normal MPV 10.3 LAB L100.2100 47-70 % Low NEUT% 35.9 LAB L100.2200 19-41 % High LY% 51.7 LAB L100.2300 0-10 % Normal MONO% 9.0 LAB L100.2400 0-5 % Normal EO% 2.8 LAB L100.2500 0-1 % Normal BASO% 0.6 LAB L100.2550 0.0-0.9 % Normal IM GRAN % 0.000 Result Comment: IG% - Immature Granulocytes (promyelocytes, myelocytes and metamyelocytes) > 1% indicates that a LEFT SHIFT is Present. LAB L100.2620 2.0-7.7 X10 3/uL Normal Absolute Neut 2.4 LAB L100.2720 0.83-4.51 X10 3/ul Normal Absolute Lymph 3.38 Performed By: #### L100.0100 #### [facility] [address] [place], [address] BASIC METABOLIC Collected: 03/20/2018 Status: F Source: [place] PROFILE (BMP) 7:47 PM [facility] REPOSITORY TYPE CODE TESTS RESULT OUT OF RANGE REFERENCE UNITS LAB L501.0100 74-106 mg/dL Normal GLU 100 Result Comment: Fasting Glucose result from 100 to 125 mg/dL suggests IMPAIRED HOMEOSTASIS per A.D.A. criteria. Please note revised GLUCOSE reference range effective 2017. LAB L501.1000 7-18 mg/dL Normal BUN 11 LAB L501.1100 0.55-1.02 mg/dL Normal CREAT,SERUM 0.70 Result Comment: The validity of the calculated GFR AND GFRAA in patients over 70 years has not been determined. Clinical correlation is essential. LAB L501.1110 >60 mL/min Normal EST GFR 91 Result Comment: Non- GFR Calc LAB L501.1115 >60 mL/min Normal EST GFR - AA 110 Result Comment: GFR Calc LAB L501.1255 ml/min Normal Estimated CRCL 83.11 LAB L501.1300 10-20 RATIO Normal BUN/CRE 15.7 LAB L501.2200 8.5-10 mg/dL Normal .1 CA 8.9 LAB L501.5300 136-14 mmol/L Normal 5 NA 142 LAB L501.5600 3.5-5. mmol/L Low 1 K 3.4 LAB L501.5900 98-107 mmol/L Normal CL 107 LAB L501.6100 21.0-3 mmol/L Normal 2.0 CO2 27.0 LAB L501.6200 5-15 Normal GAP 8 Performed By: #### L500.2500, L501.4010 #### [facility] [address] [place], [address] TROPONIN-I Collected: 03/20/2018 Status: F Source: S[place]IS 7:47 PM [facility] REPOSITORY TYPE CODE TESTS RESULT OUT OF RANGE REFERENCE UNITS LAB L501.4010 <0.045 ng/mL Normal < 0.015 TROPONIN-I Result Comment: TROPONIN-I EXPECTED VALUES <0.045 Negative 0.045 - 0.590 Consistent with Cardiac Damage > OR = 0.600 Critical Value Not every elevated troponin is indicative of AR. These values should be used with clinical judgement in examining the patient's clinical picture for diagnosis. To establish a diagnosis of AR versus myocardial injury, there must be a demonstrated rise and/or fall in the troponin values, in addition to ischemic symptoms, EKG changes, new regional wall motion abnormality, and/or angiographical evidence. PLEASE NOTE: REFERENCE RANGES EDITED 17 Performed By: #### L500.2500, L501.4010 #### [facility] [address] [place], [address] CHEST 1 VIEW Observed: 03/20/2018 Status: F Source: SALLIS (PORTABLE) 7:45 PM [facility] REPOSITORY [facility] [address] [place] [address] Chest 1 View (Portable) MR#: [id number] Acct: [id number] Name: JOSE MEZA Rep #: [id number] : 1955 F 62 From: Dewey Calloway MD PCP: Mehdi Hair DO Status: REG ER Study: Chest 1 View (Portable) Date of Exam: 03/20/18 Exam# [id number] Ordering Dr: Garry,Hammad P. STUDY: X-RAY CHEST REASON FOR EXAM: Female, 62 years old. Intermittent chest pain that started yesterday TECHNIQUE: AP COMPARISON: 01/04/2018 FINDINGS: EKG leads project over the chest. The lungs are clear and expanded. There is no demonstrated pleural abnormality. Normal size heart. Normal mediastinum and nelson. Normal visualized pulmonary arteries. There is atherosclerotic tortuosity of the aortic arch and descending thoracic aorta. No acute bony process. There is no demonstrated abnormality of the visualized soft tissue structures of the upper abdomen. RAD/Chest 1 View (Portable) IMPRESSION: 1. Stable, nonacute portable x-ray examination of the chest. Electronically Signed: Dewey Calloway MD at 20:08 EST , Service support , CC: ED PHYSICIAN PROVIDER; Mehdi Hair DO Business Excellence Leader: Signed CHEST PA AND LATERAL Observed: 01/04/2018 Status: F Source: SALLIS 12:26 PM [facility] REPOSITORY [facility] [address] [place] [id number] Chest PA and Lateral MR#: [id number] Acct: [id number] Name: JOSE MEZA Paola Rep #: [id number] : 1955 F 62 From: Colten Anguiano DO PCP: Mehdi Hair DO Status: REG CLI Study: Chest PA and Lateral Date of Exam: 01/04/18 Exam# [id number] Ordering Dr: Mehdi Hair DO STUDY: X-RAY CHEST REASON FOR EXAM: Female, 62 years old. Cough for 7 weeks. TECHNIQUE: PA and lateral views of the chest. COMPARISON: October 26, 2017. FINDINGS: The lungs are hyperexpanded without infiltrate or mass. There is no demonstrated pleural abnormality. Normal size heart. Normal mediastinum and nelson. Normal visualized pulmonary arteries. Normal visualized aortic arch and descending thoracic aorta. Normal visualized thoracic spine. Normal visualized ribs, clavicles, and shoulders. There is no demonstrated abnormality of the visualized soft tissue structures of the upper abdomen. RAD/Chest PA and Lateral IMPRESSION: No acute cardiopulmonary disease or interval change. Electronically Signed: Colten Anguiano DO at 20:37 EDT Tel [phone], Service support , CC: Mehdi Hair DO Business Excellence Leader: Signed CBC W/DIFF, AUTOMATED Collected: 01/04/2018 Status: F Source: LUÍS 12:20 PM [facility] REPOSITORY TYPE CODE TESTS RESULT OUT OF RANGE REFERENCE UNITS LAB L100.1000 4.4-11.0 K/mm3 Normal WBC 7.9 LAB L100.1200 4.2-5.4 M/mm3 Normal RBC 5.39 LAB L100.1300 12.0-15.0 g/dl Normal HGB 15.0 LAB L100.1400 37-47 % Normal HCT 45.8 LAB L100.1500 81-99 fL Normal MCV 85.0 LAB L100.1600 27.0-32.0 pg Normal MCH 27.8 LAB L100.1700 32-36 g/gl Normal MCHC 32.8 LAB L100.1810 11.6-14.6 % Normal RDW CV 13.2 LAB L100.1820 35.1-43.9 fl Normal RDW SD 40.5 LAB L100.1900 150-450 K/mm3 Normal PLT 252 LAB L100.2000 6.2-12.0 fl Normal MPV 10.6 LAB L100.2100 47-70 % Normal NEUT% 69.1 LAB L100.2200 19-41 % Low LY% 18.8 LAB L100.2300 0-10 % Normal MONO% 9.7 LAB L100.2400 0-5 % Normal EO% 2.0 LAB L100.2500 0-1 % Normal BASO% 0.4 LAB L100.2550 0.0-0.9 % Normal IM GRAN % 0.000 Result Comment: IG% - Immature Granulocytes (promyelocytes, myelocytes and metamyelocytes) > 1% indicates that a LEFT SHIFT is Present. LAB L100.2620 2.0-7.7 X10 3/uL Normal Absolute Neut 5.5 LAB L100.2720 0.83-4.51 X10 3/ul Normal Absolute Lymph 1.49 Performed By: #### L100.0100 #### [facility] [address] [place], [address] 12 LEAD ELECTROCARDIOGRAM Observed: 10/27/2017 Status: F Source: LUÍS 1:15 PM [facility] REPOSITORY [facility] [address] [place] [address] 12 Lead EKG 10/26/17 0025 MR#: [id number] Acct: [id number] Name: JOSE MEZA Rep #: [id number] : 1955 62 From: Dominic Figueroa MD Attending Dr: Status: DEP ER Ordering Dr: Yaakov Sargent MD Date: 10/26/17 Location: ED Sex: F C Admitted: Test Reason : CP Blood Pressure : / mmHG Vent. Rate : 063 BPM Atrial Rate : 063 BPM P-R Int : 170 ms QRS Dur : 084 ms QT Int : 402 ms P-R-T Axes : 059 061 051 degrees QTc Int : 411 ms Normal sinus rhythm Normal ECG Confirmed by HENRY NINA, DOMINIC ([id number]), video editor SASHA ROJAS ([id number]) on 10/27/2017 1:14:35 PM Referred By: LACHO Confirmed By:DOMINIC FIGUEROA MD 10/27/17 1314 Date Dominic Figueroa MD CC: Mehdi Hair DO; Yaakov Sargent MD Signed EMERGENCY DEPARTMENT Observed: 10/26/2017 Status: F Source: LUÍS SUMMARY 1:33 AM [facility] REPOSITORY [facility] Records Department [address] [place] [address] Emergency Department Summary 10/26/17 0039 MR#: [id number] Acct: [id number] Name: JOSE MEZA Rep #: [id number] : 1955 62 From: Yaakov Sargent MD PCP: Mehdi Hair DO Status: DEP ER - ER Visit Summary Date of Service: 07/23/18 Chief Complaint: Palpitations, near syncope History of Present Illness: The patient is a 62 F with history of took a suitable cardiomyopathy presents to the emergency department with sudden onset palpitations and the sensation as she is going to pass out. Patient is in his normal state of health. She was actually admitted in February of last year with dyspnea and chest pain. She had a normal angiographic cardiac catheterization, but did have wall motion abnormality thought to be secondary to Takasubo cardiomyopathy. She had been on multiple medications, but they have been stopped in September. She states she been doing well. Over the past few weeks, she does admit to some exertional dyspnea. She states tonight, she woke and felt as if her heart was racing and can go back to sleep. States when she stood, she felt as if she was going to pass out. She has never had anything like this before. She denies any chest pain. Physical Examination: Vital signs reviewed General: Well-nourished, well-developed Head: Normocephalic, atraumatic Eyes: Pupils equal and reactive, extraocular muscles intact Neck, supple, no lymphadenopathy Heart: Regular rate and rhythm Respiratory: No distress, clear bilaterally Abdomen: Soft, nontender, nondistended, no peritoneal signs Back: Nontender Extremities: Nontender, no edema, no cords Skin: Normal color no rash Neuro: Alert and oriented, no focal or lateralizing deficits Test Results: [] Emergency Department Course and Treatment: The patient presents with symptomatic palpitations that woke him from sleep and felt as if she was going to pass out. She did have normal cardiac catheterization of her vasculature done within the past year. Her EKG shows no acute ischemic change. There is no dysrhythmia. The patient had resolution of symptoms on arrival. She has not had any chest pain. Her chest x-ray was unremarkable. Cardiac enzymes are normal. On reevaluation she is resting comfortably. I do feel that this is more likely symptomatically palpitations rather than a dangerous process, especially given her history of normal angiography. Patient was counseled on concerning symptoms and reasons to return. At this time, I do feel that she is safe for discharge. Treatment Plan: [] Disposition: Discharge Impression: 1. Systematic palpitations This note was generated with [employer] dictation software. It may contain incorrect words, spelling, and punctuation that were not noted in review of the chart prior to signing ED Disposition - Plan for ED Patient: Chief Complaint: Chest Pain Instructions: ED Palpitations Referrals: Mehdi Hair, DO [Primary Care Provider] - What to do if you have Problems For any increased pain, shortness of breath, bleeding, nausea or vomiting, chest pain, or any unexpected problems, contact your Primary Care Provider. Call [facility] ([phone]) or report to the closest Emergency Room. Call 911 if necessary. 10/26/17 0133 <Electronically signed by Yaakov Sargent MD> Date Yaakov Sargent MD Cosigner Signature (If Indicated): Date CC: Mehdi Hair DO CBC W/DIFF, AUTOMATED Collected: 10/26/2017 Status: F Source: LUÍS 12:34 AM [facility] REPOSITORY TYPE CODE TESTS RESULT OUT OF RANGE REFERENCE UNITS LAB L100.1000 4.4-11.0 K/mm3 Normal WBC 6.7 LAB L100.1200 4.2-5.4 M/mm3 Normal RBC 5.20 LAB L100.1300 12.0-15.0 g/dl Normal HGB 14.4 LAB L100.1400 37-47 % Normal HCT 43.7 LAB L100.1500 81-99 fL Normal MCV 84.0 LAB L100.1600 27.0-32.0 pg Normal MCH 27.7 LAB L100.1700 32-36 g/gl Normal MCHC 33.0 LAB L100.1810 11.6-14.6 % Normal RDW CV 13.0 LAB L100.1820 35.1-43.9 fl Normal RDW SD 39.0 LAB L100.1900 150-450 K/mm3 Normal PLT 254 LAB L100.2000 6.2-12.0 fl Normal MPV 10.2 LAB L100.2100 47-70 % Low NEUT% 35.4 LAB L100.2200 19-41 % High LY% 51.6 LAB L100.2300 0-10 % Normal MONO% 9.4 LAB L100.2400 0-5 % Normal EO% 3.0 LAB L100.2500 0-1 % Normal BASO% 0.6 LAB L100.2550 0.0-0.9 % Normal IM GRAN % 0.000 Result Comment: IG% - Immature Granulocytes (promyelocytes, myelocytes and metamyelocytes) > 1% indicates that a LEFT SHIFT is Present. LAB L100.2620 2.0-7.7 X10 3/uL Normal Absolute Neut 2.4 LAB L100.2720 0.83-4.51 X10 3/ul Normal Absolute Lymph 3.45 Performed By: #### L100.0100 #### [facility] [address] [place], [address] BASIC METABOLIC Collected: 10/26/2017 Status: F Source: [place] PROFILE ([facility]) 12:34 AM [facility] REPOSITORY TYPE CODE TESTS RESULT OUT OF RANGE REFERENCE UNITS LAB L501.0100 74-106 mg/dL Normal GLU 93 Result Comment: Please note revised GLUCOSE reference range effective 2017. LAB L501.1000 7-18 mg/dL Normal BUN 16 LAB L501.1100 0.55-1.02 mg/dL Normal CREAT,SERUM 0.72 Result Comment: The validity of the calculated GFR AND GFRAA in patients over 70 years has not been determined. Clinical correlation is essential. LAB L501.1110 >60 mL/min Normal EST GFR 87 Result Comment: Non- GFR Calc LAB L501.1115 >60 mL/min Normal EST GFR - AA 106 Result Comment: GFR Calc LAB L501.1255 ml/min Normal Estimated CRCL 80.80 LAB L501.1300 10-20 RATIO High BUN/CRE 22.1 LAB L501.2200 8.5-10 mg/dL Normal .1 CA 9.1 LAB L501.5300 136-14 mmol/L Normal 5 NA 140 LAB L501.5600 3.5-5. mmol/L Normal 1 K 3.5 LAB L501.5900 98-107 mmol/L Normal CL 107 LAB L501.6100 21.0-3 mmol/L Normal 2.0 CO2 27.0 LAB L501.6200 5-15 Normal GAP 6 Performed By: #### L500.2500, L501.4010 #### [facility] [address] [place], [address] TROPONIN-I Collected: 10/26/2017 Status: F Source: S[place] 12:34 AM [facility] REPOSITORY TYPE CODE TESTS RESULT OUT OF RANGE REFERENCE UNITS LAB L501.4010 <0.045 ng/mL Normal < 0.015 TROPONIN-I Result Comment: TROPONIN-I EXPECTED VALUES <0.045 Negative 0.045 - 0.590 Consistent with Cardiac Damage > OR = 0.600 Critical Value Not every elevated troponin is indicative of AR. These values should be used with clinical judgement in examining the patient's clinical picture for diagnosis. To establish a diagnosis of AR versus myocardial injury, there must be a demonstrated rise and/or fall in the troponin values, in addition to ischemic symptoms, EKG changes, new regional wall motion abnormality, and/or angiographical evidence. PLEASE NOTE: REFERENCE RANGES EDITED 17 Performed By: #### L500.2500, L501.4010 #### [facility] [address] [place], [address] CHEST 1 VIEW Observed: 10/26/2017 Status: F Source: SALLIS (PORTABLE) 12:33 AM [facility] REPOSITORY [facility] [address] [place] [address] Chest 1 View (Portable) MR#: [id number] Acct: [id number] Name: JOSE MEZA Paola Rep #: [id number] : 1955 F 62 From: Kam Desir PCP: Mehdi Hair DO Status: REG ER Study: Chest 1 View (Portable) Date of Exam: 10/26/17 Exam# [id number] Ordering Dr: Yaakov Sargent MD STUDY: X-RAY CHEST REASON FOR EXAM: Female, 62 years old. Chest pain TECHNIQUE: AP portable chest. COMPARISON: February 16, 2017. May 30, 2015. FINDINGS: The lungs are clear and expanded. There is no demonstrated pleural abnormality. Normal size heart. Normal mediastinum and nelson. Normal visualized pulmonary arteries. Normal visualized aortic arch and descending thoracic aorta. Normal visualized thoracic spine. Normal visualized ribs, clavicles, and shoulders. There is no demonstrated abnormality of the visualized soft tissue structures of the upper abdomen. RAD/Chest 1 View (Portable) IMPRESSION: Stable chest, no acute cardiopulmonary disease. Electronically Signed: Kam Desir MD at 1:00 EDT , Service support , CC: Mehdi Hair DO; Yaakov Sargent MD Business Excellence Leader: Signed CARDIOLOGY VISIT Observed: 09/29/2017 Status: F Source: SALLIS REPORT 10:59 AM [facility] REPOSITORY [facility] [address] [place] [address] OFFICE VISIT Date of Service: 09/29/17 MR#: [id number] Acct: [id number] Name: JOSE MEZA Rep #: [id number] : 1955 Provider: Waldemar López MD Age/Sex: 62/F Location: [facility] Status: Signed HPI HPI Details: JOSE MEZA, is a 62 F who presents to the office today for cardiovascular follow-up. She has a history of non-ST myocardial infarction and Takotsubo cardiomyopathy. Heart catheterization at time of hospitalization in February 2017 demonstrated normal coronary arteries with an ejection fraction of 35%. Repeat echocardiogram in June demonstrated an improved ejection fraction of 55%. Pt feels that she is doing better. She has still been in cardiac rehabilitation and is due to completed sometime in October. She says that her stress level continues unfortunately to be high. She has had no neck arm or jaw discomfort however to suggest angina. She does not have any lightheadedness or dizziness. She does not have any lower extremity edema. Her physical exam demonstrates clear lung sims regular rate and rhythm and no pedal edema. Intake Vital Signs09/29/17 Height 5 ft 7 in 09/29/17 Weight: 153 lb 09/29/17 Body Mass Index (BMI) 23.9 09/29/17 Blood Pressure 100/60 Intake Visit Reasons: 3 M FU Is patient in pain?: No Allergies potassium Allergy (Verified 09/29/17 10:33) Anaphylaxis acetaminophen [From Tylenol] Adverse Reaction (Verified 09/29/17 10:33) Unknown codeine Adverse Reaction (Verified 09/29/17 10:33) Vomiting Medications ascorbic acid (vitamin C) ER 1,000 mg tablet,extended release 1,000 mg PO BID tab 06/15/17 [History Confirmed 09/28/17] multivitamin with iron-mineral 0.8 mg oral combo pack 1 tab PO QDAY 09/29/17 [History Confirmed 09/29/17] [facility] Medical History Takotsubo cardiomyopathy (Resolved 02/2017) History of non-ST elevation myocardial infarction (NSTEMI) (Chronic 02/2017) Palpitations (Chronic) Bronchitis (Resolved) URI (upper respiratory infection) (Resolved) Surgical History Status post left heart catheterization (Chronic 02/17/17) H/O carpal tunnel repair (Inactive) History of salpingo-oophorectomy (Inactive) Hx of cataract extraction (Inactive) Family History Father Heart disease Mother Heart disease CHF valvular heart disease Social History Smoking Status: Former smoker ROS Const Const: Positive for fatigue, weakness and other (Attending Cardiac Rehab, still having chest pains); negative for body ache, fever(s), headache(s), chills, frequent falls, night sweats, daytime sleepiness, difficulty sleeping, excessive sweating, weight gain, weight loss, increased appetite, poor appetite or anorexia Eyes Eyes: Negative for blind spots, loss of peripheral vision, transient loss of vision, blurry vision, change in vision, double vision, floaters, tunnel vision or other ENT ENT: Negative for headache(s), dizziness, hearing loss, tinnitus, Nosebleed/epistaxis, balance problems, post nasal drip, lip swelling, tongue swelling, bleeding gums, hoarseness, neck pain, dry mouth or other Cardio Chest Pain: Yes (twinges in her chest with weakness this past Thursday, pressure and pain) Frequency: daily Character: other (pressure) Exacerbation: other (Has a lot of emotional stress and trauma hard to talk about) Palpitations: Yes Edema: None Muscle aches with walking: None Resp Respiratory: Positive for other (Only sob when anxious or upset); negative for SOB with activity, SOB at rest, SOB orthopnea\SOB lying down, Coughing up blood/hemoptysis, chest congestion, pain on inspiration, snoring, stridor, wheezing, crackles or paroxysmal nocturnal dyspnea GI GI: Negative nausea, vomiting, heartburn, constipation, belching, bloating, cramping, vomiting blood/hematemesis, bright, red blood in stools, black,tarry stools, loose stools, Difficulty Swallowing or other : Negative for hematuria, frequent nighttime urination/ nocturia, erectile dysfunction or abnormal vaginal bleeding Musc Musc: Negative for balance problems, muscle aches/ myalgia, muscle weakness or joint pain Skin Skin: Negative redness, non-healing lesions, rash, unusual bruising, skin ulcer, wounds, jaundice or other Neuro Neuro: Positive for weakness; negative for headache(s), frequent falls, blurry vision, double vision, dizziness, lightheadedness, near syncope, syncope, orthostatic symptoms, confusion, memory loss, restless legs, vertigo, seizures, lack of coordination or other [place] Hematologic/Lymphatic: Negative for easy bleeding, easy bruising, enlarged lymph nodes or other Endo Endo: Positive for fatigue; negative for excessive sweating, cold intolerance, heat intolerance, flushing, increased thirst/drinking, increased hunger, hair loss, hair growth or other Psych Psych: Negative for anxiety, depression, thoughts of harming anyone, thoughts of harming yourself, visual hallucinations, panic attacks or audible hallucinations Allergy Allergy/Immunology: Negative for lip swelling, Negative for tongue swelling, Negative for rash, Negative for throat swelling, Negative for hives Cardiology Exam Const Appearance: cooperative, healthy appearing, well developed, well groomed and no acute distress Nutritional Appearance: well nourished and average body habitus Orientation: alert, awake and oriented x3 Head Head: normal to inspection, normocephalic and atraumatic Ears: hearing grossly normal bilaterally and external ears normal Nose: external nose normal, nasal mucous membranes and turbinates normal, nares normal, septum normal, no nasal discharge Face and Sinus: face symmetric Mouth: oral mucosae normal, tongue normal, oropharynx normal and moist mucous membranes Teeth and gingiva: dentition normal Throat: posterior oropharynx normal, tonsils normal and uvula midline Eyes General: appearance normal, both eyes and all related structures Eyelids: eyelids normal Conjunctivae: conjunctivae normal Pupils: PERRL, normal by confrontation and accommodation normal EOM: EOM intact bilaterally Neck Neck: normal visual inspection, trachea midline and no JVD JVD: +5 Carotids: normal carotid upstroke and bounding pulses Chest Chest inspection: normal inspection of the chest, symmetric chest movement and normal respiratory effort Auscultation: Bilateral: Clear to Auscultation Cardio Palpation: normal PMI Rate: regular rate Rhythm: regular rhythm Heart sounds: S1 normal, S2 normal and normal, physiologic split S2; negative rub, gallop or murmur GI GI: normal to inspection, soft, no hepatosplenomegaly and bowel sounds present Neuro General: alert, awake, oriented x3, no focal sensory deficit, gait normal and moves all extremities Skin Skin: no rashes or lesions noted Extremities Pulses: Normal: Right Femoral Pulse, Left Femoral Pulse, Right Dorsalis Pedis Pulse, Left Dorsalis Pedis Pulse, Right Posterior Tibial Pulse, Left Posterior Tibial Pulse, Right Radial Pulse, Left Radial Pulse Lower Extremity Edema: None: Bilateral Musculoskel Musculoskeletal: No joint tenderness Psych Psychological: normal affect Assessment AND Plan 1. Takotsubo cardiomyopathy I51.81 Plan She does have a history of tachycardia tubal cardiomyopathy which has resolved. She unfortunately still remains under tremendous amount of stress. She is scheduled to see her later on this week and have asked her to discuss this with you. She may need additional therapy measures to help her go through this. From the cardiac standpoint however I do not think that any new medications or interventions that I would schedule. I would like to see her again in approximately a year. Thank you for allowing me to participate in the care of your patient. 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) Coding Level of Care Code Off vis,est,level 3 Diagnoses Takotsubo cardiomyopathy I51.81 Coding Level of Care Code Off vis,est,level 3 Diagnoses Takotsubo cardiomyopathy I51.81 09/29/17 1059 <Electronically signed by Waldemar López MD> Date Waldemar López MD Cosigner Signature: Date (if applicable) CC: Mehdi Hair DO PULMONARY FUNCTION Observed: 08/25/2017 Status: F Source: SALLIS TEST 1:51 PM [facility] REPOSITORY [facility]Ne[facility]rology [address] [place] [address] MR#: [id number] Acct: [id number] Name: JOSE MEZA Rep #: [id number] : 1955 61 From: Hebert Quinteros DO Referring Dr: Mehdi Hair DO Status: REG CLI Ordering Dr: Date: Location: [facility] Sex: F C INTRODUCTION: The patient is a 61-year-old female currently under the care of Dr. Hair that presents for pulmonary function testing secondary to a diagnosis of dyspnea on exertion. Respiratory therapy reports good patient effort. Bronchodilators were used during testing. INTERPRETATION: Forced expiration spirometry demonstrates no evidence of a large airways obstructive ventilatory defect. There is no significant response to aerosolized bronchodilators. Spirograms are of good quality and plateau gradually indicating slow emptying of the lungs. Body plethysmography was performed and reveals lung volumes to be within normal limits. Diffusing capacity by single breath CO is within normal limits at 98% of predicted. IMPRESSION: These pulmonary function studies are essentially within normal limits. There are no previous pulmonary function studies available for comparison. 08/25/17 1351 <Electronically signed by Hebert Quinteros DO> Date Hebert Quinteros DO CC: Mehdi Laxmi DO Date Dictated: 08/25/171346 Date Transcribed: 08/25/171346 Business Excellence Leader: RUBINA Signed OFFICE VISIT REPORT Observed: 07/23/2017 Status: F Source: [facility] 12:17 PM [facility] [address] [address] OFFICE VISIT Date of Service: 07/22/17 MR#: [id number] Acct: [id number] Patient: JOSE MEZA Rep #: [id number] : 1955 Provider: Waldemar López MD Age/Sex: 61/F Location: [facility] [facility] Status: Signed Intake Intake Visit Reasons: EKG Allergies potassium Allergy (Verified 06/16/17 10:59) Anaphylaxis acetaminophen [From Tylenol] Adverse Reaction (Verified 06/16/17 10:59) Unknown codeine Adverse Reaction (Verified 06/16/17 10:59) Vomiting Medications Aspirin [Aspirin, Baby] 81 mg PO DAILY@0800 #30 tab.chew 02/17/17 [Rx Confirmed 06/25/17] lisinopril 2.5 mg tablet 2.5 mg PO DAILY #30 tab 03/18/17 [Rx Confirmed 06/25/17] ascorbic acid (vitamin C) ER 1,000 mg tablet,extended release 1,000 mg PO BID tab 06/15/17 [History Confirmed 06/25/17] carvedilol 3.125 mg tablet 3.125 mg PO BID 07/22/17 [History Confirmed 07/22/17] Assessment AND Plan Orders Orders: Medications Discontinued: carvedilol One tablet by mouth twice daily administer 6.25 mg PO BID Harumi DeFinis with food (meal or snack) Discontinued Reason: Order Rozina nged Nursing Note Pt here today for an EKG d/t c/o SOB and chest discomfort. BNP 20.7 pg/mL. Pt states she became SOB and had chest discomfort starting last night and again during cardiac rehab. EKG shows Sinus Rhythm 71 bpm, BP 102/70. Syed Lazaro SOCIAL MEDIA MANAGER reviewed ekg and pt is to 1.) decrease Coreg to 3.125 mg po twice daily, 2.) consult PCP for anxiety, 3.) we will monitor bp and HR through cardiac rehab. Pt will not start lisinopril 2.5 mg po daily for now, and we will monitor symptoms through cardiac rehab. Pt repeated instructions back accurately. 07/23/17 1217 <Electronically signed by Syed LEAL> Date Syed LEAL Cosigner Signature: Date (if applicable) CC: Onelia Alfredo 12 LEAD EKG PERFORMED Observed: 07/22/2017 Status: F Source: [facility] BY [facility] 1:28 PM [facility] REPOSITORY [facility] [address] [place] [address] 12 Lead EKG performed by [facility] 07/22/171326 MR#: [id number] Acct: [id number] Name: JOSE MEZA Rep #: [id number] : 1955 61 From: Syed Lazaro NP-C Attending Dr: Waldemar López MD Status: DEP AMB Ordering Dr: Syed Lazaro Date: 07/22/17 Location: [facility] Sex: F C Admitted: BMS/12 Lead EKG performed by [facility] ECG Report Interpretation Sinus Rhythm -Old anterior infarct. ABNORMAL Electronically signed on 07/29/2017 at 14:14 by Waldemar López 07/29/17 1415 Date Syed LEAL CC: Mehdi Hair DO Date Dictated: 07/22/171326 Date Transcribed: 07/22/171326 Business Excellence Leader: HOOD Signed BNP,B-TYPE NATRIURETIC Collected: 07/22/2017 Status: F Source: [facility] [place] 9:51 AM [facility] REPOSITORY TYPE CODE TESTS RESULT OUT OF RANGE REFERENCE UNITS LAB L503.6620 0-100 pg/mL Normal B-TYPE 20.7 ELIAZAR PEP Performed By: #### L503.6620 #### [facility] [address] [place], [address] CR - HISTORY AND Observed: 06/25/2017 Status: F Source: [place] PHYSICAL 5:01 PM [facility] REPOS[facility] [address] [place] [address] CR - History AND Physical MR#: [id number] Acct: [id number] Name: JOSE MEZA Rep #: [id number] : 1955 61 From: Cecilio Borjas RN PCP: Mehdi Hair DO DOS: 06/25/17 CR - History AND Physical - General Arrival date:: 06/25/17 Arrival time:: 13:00 Date of Admission: 06/25/17 Referring Physician: Primary Diagnosis: NSTEMI, PCI - History of Present Cardiac Event Onset Date: Enter Onset Date of cardiac illnesses in Comment field below Angina:: Yes AR:: Yes - 02/16/18 CABG:: No PTCA:: No Valve Replacement/Repair:: No Pacemaker/ICD: No Type of Symptoms:: [place]arte SOB, anterior chest pain. Interventions with present event:: Adm and then had heart cath Were there any complications?: no - Medications Home Medications: Ambulatory Orders Medication Instructions Recorded Aspirin [Aspirin, Baby] 81 mg PO DAILY@0800 #30 tab.chew 02/17/17 carvedilol 6.25 mg tablet 6.25 mg PO BID #60 tab 03/10/17 - Allergies Allergies/Adverse Reactions: Allergies potassium Allergy (Verified 06/16/17 10:59) Anaphylaxis PATIENT CAN TOLERATE PO POTASSIUM NOT IV, PATIENT STATES HEART STOPPED WHEN GIVEN IV POTASSIUM. acetaminophen [From Tylenol] Adverse Reaction (Verified 06/16/17 10:59) Unknown codeine Adverse Reaction (Verified 06/16/17 10:59) Vomiting - Sleep Disorder Evaluation Hx of Sleep Apnea: No Do you snore loudly (louder than talking or can be heard through closed doors)?: Yes Do you often feel tired/ fatigued/ sleepy during daytime?: Yes Has anyone observed you stop breathing during sleep?: No History of Hypertension (for STOP score): No STOP Results: Positive Advanced Directives - Advanced Directives Power of Branch Customer Service Representative: No Living Will: No Advance Directives Information Provided: Yes Advance Directives on File: No DNR Order?:: No Past Medical History - Problems and Co-Morbidities Problems AND Co-Morbidities: Depression, Anxiety - Past Medical Illness Past Medical Illness: Arthritis, Lung or Breathing Problems - Some sob at times, Back Problems, Neuropathy - has some numbness and tingling from neck issues at times. - Past Cardiac Illness Past Cardiac Illness: LV Dysfunction - EF 35 now 55%, Ejection Fraction Other Cardiac Illnesses:: Takotsubo Cardiomyopathy. - Other Other: Vision/Eye Problems - Cataract surg bilaterally - Cardiology Procedures/Interventions Cardiology Procedures/Interventions: Heart Catheterization, Echocardiogram - Past Surgical History Surgical History: cataract, - - R carpal tunnel surgery, BL cataract, ABEBA (unilateral, unclear which side), Appendectomy. - Family History Summary Family History: Heart Disease: Maternal, Paternal, Sibling - CHF age 92, dad had mi- age 84, brothers and sisters with heart disease(CAD). Review of Systems - Review of Systems Hints: Right click = Denies ([place]). Left click = Reports ([place]) Review of Present Symptoms: Reports: Shortness of Breath with Exertion - with tension notices it., Fatigue, Heart Arrhythmia/Irregularities - yes a few weeks ago., Appetite - Normal, Sleep - Normal - difficulty falling asleep. Denies: Shortness of Breath at Rest, PVD, Operative Discomfort, Angina, Wound Healing, Dizziness/Lightheadedness, Appetite - Special Diet, Sexual Changes Risk Factor Assessment - Chief Complaint Chief Complaint: to get healthy - Pulse Pulse Rate: 57 Pulse Rhythm: Regular - Hypertension Blood Pressure Sitting - Right Arm: 110/70 Blood Pressure Sitting - Left Arm: 124/70 - Stress Stress: Long-standing, Work-related - Diabetes Nutrition Referral for Diabetes: No - Obesity Height: 1.7 m Weight:: 68.039 kg Weight in Pounds: 150.0 lbs Body Mass Index (BMI): 23.5 Nutritional Referral for Obesity: No - Physical Inactivity Physical Inactivity: Physically demanding job - Risk Stratification Risk Guidelines: Lowest Risk: Risk Factor for Smoking, Risk Factor for Dyslipidemia, Risk Factor for Diabetes, Risk Factor for Obesity, Risk Factor for Hypertension, Risk Factor for Sedentary Lifestyle, Highest Risk: Risk Factor for Depression - For Smoking Smoking Risk Guidelines: Smoking Low Risk: None or quit greater than 6 months ago. Smoking Moderate Risk: Smoker or quit 6 months or less ago. Smoking High Risk: Smoker - For Dyslipidemia Dyslipidemia Risk Guidelines: Low Risk: Moderate Risk: High Risk: 15-25% fat 25.1-29% fat >/= 30% fat. <7% sat fat 7-9% sat fat >9% sat fat. <150 mg chol 150-299 mg chol >/= 300 mg chol. LDL <100 LDL 100-129 LDL >/= 130. Chol/HDL ratio <5.0 Chol/HDL ratio 5.0-6.0 Chol/HDL ratio >6.0. Triglycerides <100 Triglycerides 100-149 Triglycerides >/= 150 - For Diabetes Mellitus Diabetes Risk Guidelines: Diabetes Low Risk: HgA1c <6.5% and/or FBG <120. Diabetes Moderate Risk: HgA1c 6.6-7.9% and/or FBG 120- 180. Diabetes High Risk: HgA1c >/= 8% and/or FBG >180 - For Obesity/Overweight Obesity/Overweight Risk Guidelines: Obesity Low Risk: BMI <25.0. Obesity Moderate Risk: BMI 25-29.9. Obesity High Risk: BMI >/= 30.0 - For Hypertension Hypertension Risk Guidelines: Hypertension Low Risk: Systolic <120 and Diastolic <80. Hypertension Moderate Risk: Systolic 120-139 and Diastolic 80-89. Hypertension High Risk: Systolic >/= 140 and Diastolic >/= 90 - For Sedentary Lifestyle Sedentary Lifestyle Risk Guidelines: Sedentary Lifestyle Low Risk: >/= 1,500 kcal/week. Sedentary Lifestyle Moderate Risk: 700-1,499 kcal/week. Sedentary Lifestyle High Risk: < 700 kcal/week - For Depression Depression Risk Guidelines: Depression Low Risk: Not clinically depressed. Depression Moderate Risk: Mildly depressed. 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 - Hobbies, Recreation, Social Activities Hobbies: Other - antiqueing, decorating, grandchildren Recreational Activities: I am able to engage in a few activities Marital Status - Status Marital Status: - Current Living Arrangements Living Environment:: Alone - Children How many children do you have?: 3 - Safety Do you feel safe in your surroundings?: Yes - Assistance Do you need any assistance at home?: no 06/25/17 1437 <Electronically signed by Cecilio Borjas RN> Date Cecilio Borjas RN Outcome assessment reviewed. Exercise plan approved as documented. Treatment plan and goals support patient needs/abilities. Continue with current plan. I certify the patient demonstrates improvement and remains willing and capable of participation. the patient continues to benefit from cardiac rehab services/training. The patient may continue at current intensity, endurance and modality and progress per protocol. 06/25/17 1701 <Electronically signed by Waldemar López MD> Cosign Signature: Date Waldemar López MD CC: Signed CARDIOLOGY VISIT Observed: 06/19/2017 Status: F Source: [facility] REPORT 8:40 AM [facility] REPOS[facility] [address] [place] [address]. [address] [place] [address] OFFICE VISIT Date of Service: 06/16/17 MR#: [id number] Acct: [id number] Name: JOSE MEZA Rep #: [id number] : 1955 Provider: Celina Aguilar Age/Sex: 61/F Location: [facility] [place] [facility] Status: Signed [facility] Details: JOSE MEZA, is a 61 F who presents to the office today for cardiovascular follow-up. She has a history of non-ST myocardial infarction and Takotsubo cardiomyopathy. Heart catheterization at time of hospitalization in February 2017 demonstrated normal coronary arteries with an ejection fraction of 35%. Repeat echocardiogram earlier this month demonstrated an improved ejection fraction of 55%. Pt feels that she is doing better. However she notes that she has SOB with over exertion with minimal activity, with this she also has chest heaviness. She wonders if this is related to anxiety. 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 She does still complain of fatigue and palpitations. She does not have any lightheadedness or dizziness. She does not have any lower extremity edema. Intake Vital Signs06/16/17 Height 5 ft 7 in 06/16/17 Weight: 150 lb 06/16/17 Body Mass Index (BMI) 23.5 06/16/17 Blood Pressure 120/80 06/16/17 Pulse Rate 64 Intake Visit Reasons: 3 M FU Allergies potassium Allergy (Verified 06/16/17 10:59) Anaphylaxis acetaminophen [From Tylenol] Adverse Reaction (Verified 06/16/17 10:59) Unknown codeine Adverse Reaction (Verified 06/16/17 10:59) Vomiting Medications Aspirin [Aspirin, Baby] 81 mg PO DAILY@0800 #30 tab.chew 02/17/17 [Rx Confirmed 06/15/17] carvedilol 6.25 mg tablet 6.25 mg PO BID #60 tab 03/10/17 [Rx Confirmed 06/15/17] lisinopril 2.5 mg tablet 2.5 mg PO DAILY #30 tab 03/18/17 [Rx Confirmed 06/15/17] ascorbic acid (vitamin C) ER 1,000 mg tablet,extended release 1,000 mg PO BID tab 06/15/17 [History Confirmed 06/15/17] Ejection fraction %: 55 to 59 PFSH Medical History Palpitations (Acute) NSTEMI (non-ST elevated myocardial infarction) (Resolved) Takotsubo cardiomyopathy (Resolved 02/2017) Bronchitis (Resolved) URI (upper respiratory infection) (Resolved) Surgical History H/O carpal tunnel repair (Inactive) History of salpingo-oophorectomy (Inactive) Hx of cataract extraction (Inactive) Status post left heart catheterization (Inactive 02/17/17) Family History Father Heart disease Mother Heart disease CHF valvular heart disease Social History Smoking Status: Former smoker ROS Const Const: Negative for weakness, fatigue, fever(s) or headache(s) Eyes Eyes: Negative for blind spots, loss of peripheral vision or transient loss of vision ENT ENT: Negative for headache(s), dizziness, tinnitus or Nosebleed/epistaxis Cardio Chest Pain: No Palpitations: No Edema: None Muscle aches with walking: None Resp Respiratory: Negative for SOB with activity, SOB at rest, SOB orthopnea\SOB lying down or Cough GI GI: Negative nausea, vomiting, heartburn or vomiting blood/hematemesis : Negative for hematuria Musc Musc: Negative for muscle aches/ myalgia Neuro Neuro: Negative for weakness, headache(s), dizziness, near syncope, syncope, lightheadedness or orthostatic symptoms Puneet Hematologic/Lymphatic: Negative for easy bleeding Endo Endo: Negative for fatigue Cardiology Exam Const Appearance: cooperative, no acute distress and well developed Orientation: alert, awake and oriented x3 Head Head: normocephalic and atraumatic Mouth: moist mucous membranes Eyes General: appearance normal, both eyes and all related structures Conjunctivae: conjunctivae normal Pupils: PERRL EOM: EOM intact bilaterally Neck Neck: normal visual inspection, no lymphadenopathy and no JVD Carotids: Negative bruit Neck Mass: Negative Neck mass Chest Chest inspection: normal inspection of the chest and symmetric chest movement Auscultation: Bilateral: Clear to Auscultation Cardio Palpation: normal PMI Rate: regular rate Rhythm: regular rhythm Heart sounds: S1 normal and S2 normal; negative rub, gallop or murmur GI GI: normal to inspection, soft, no hepatosplenomegaly and bowel sounds present; negative tender Neuro General: alert, awake, oriented x3, CN's II-XI intact bilaterally and moves all extremities Extremities Pulses: Normal: Right Posterior Tibial Pulse, Left Posterior Tibial Pulse, Right Radial Pulse, Left Radial Pulse Lower Extremity Edema: None: Bilateral Psych Psychological: normal affect Supplemental Info Echocardiogram in 2018 demonstrated normal LV size. Left ventricular systolic function is normal. The estimated ejection fraction is 55 %. Mild (1+) eccentric mitral valve insufficiency. Mild (1+) tricuspid valve insufficiency. No evidence for diastolic dysfunction. Compared to previous there is significant improvement Assessment AND Plan 1. NSTEMI (non-ST elevated myocardial infarction) I21.4 Plan - PATRICIA Ruth Patient does still continue to have symptoms of shortness of breath and fatigue. Will continue with aggressive medical management. Did review heart catheterization and echocardiogram with patient. Because the patient's symptoms would like to refer her to cardiac rehab. Also discussed the possibility of her symptoms being related to anxiety and her cardiac diagnosis of takotsubo. She does realize that this may be a possibility and is discussing this with her primary care doctor. 2. Takotsubo cardiomyopathy I51.81 Plan - PATRICIA Ruth Patient will continue with current medical management. Recent echocardiogram demonstrates that this has since resolved. 3. Palpitations R00.2 Plan - PATRICIA Ruth Patient does occasionally have palpitations. She will continue with her current dose of beta-sarah Plan Detail Additional Comments - PATRICIA Ruth We will follow-up with patient after cardiac rehab. Hopefully after she has participated in a monitored activity this will help with her anxiety level. The above patient was discussed with Dr. López, he agrees with plan of care. Thank you for allowing us to participate in patient's plan of care, if you have any questions please do not hesitate to call. This note was generated using a voice recognition system and there may be incorrect words, spelling or punctuation errors that were not noted when reviewing the office note prior to saving. 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 (refer to cardiac rehab) Coding Level of Care Code Off vis,est,level 4 Diagnoses NSTEMI (non-ST elevated myocardial infarction) I21.4 Takotsubo cardiomyopathy I51.81 Palpitations R00.2 Coding Level of Care Code Off vis,est,level 4 Diagnoses NSTEMI (non-ST elevated myocardial infarction) I21.4 Takotsubo cardiomyopathy I51.81 Palpitations R00.2 06/16/17 1127 <Electronically signed by Celina GOMEZ> Date Celina GOMEZ 06/16/17 1457<Electronically signed by Waldemar López MD> Cosigner Signature: Date (if applicable) Waldemar López MD CC: Mehdi Hair DO ECHOCARDIOGRAM COMPLETE Observed: 06/08/2017 Status: F Source: [place] 1:56 PM [facility] RE[facility] [address] [place] [address] Echo Complete 06/08/17 1004 MR#: [id number] Acct: [id number] Name: JOSE MEZA Rep #: [id number] : 1955 61 From: Waldemar López MD Attending Dr: Waldemar López MD Status: REG CLI Ordering Dr: Waldemar López MD Date: 06/08/17 Location: [facility] Sex: F C Admitted: Reason For Study: CARDIOMYOPATHY Procedure This was a 2D Doppler, Color Flow transthoracic echocardiogram. Exam performed in department. Left Ventricle Normal LV size. Left ventricular systolic function is normal. The estimated ejection fraction is 55 %. No evidence for diastolic dysfunction. No regional wall motion abnormalities noted. Right Ventricle Normal RV size. Normal systolic function. Atria Normal left atrium. Normal right atrium. Mitral Valve Normal mitral valve. Mild (1+) eccentric mitral valve insufficiency. Tricuspid Valve Normal tricuspid valve. Mild (1+) tricuspid valve insufficiency. Aortic Valve Normal aortic valve. Trisinus/trileaflet aortic valve. Pulmonic Valve Normal pulmonic valve. Great Vessels Normal aortic root. The pulmonary artery is normal size. Normal inferior vena cava. Pericardium/Pleural No pericardial effusion. MMode/2D Measurements AND Calculations LVIDd: 3.8 cm IVSd: 0.75 cm Ao root diam: 3.1 cm LVIDs: 2.7 cm LVPWd: 0.76 cm LA dimension: 3.4 cm RVDd: 3.9 cm FS: 28.8 % LAV(MOD-bp): 31.4 ml EDV(MOD-sp4): 89.0 ml EDV(MOD-sp2): 78.1 ml LAV(MOD-bp) Indexed: 17.8 ml/m2 ESV(MOD-sp4): 38.9 ml EF(MOD-sp2): 63.0 % LAV(MOD-sp2): 30.7 ml EF(MOD-sp4): 56.3 % LAV(MOD-sp4): 30.4 ml SV(MOD-sp4): 50.1 ml SV(MOD-sp2): 49.2 ml LA A4 area: 13.3 cm2 RA A4 area: 11.7 cm2 Doppler Measurements AND Calculations MV E max tiffany: 68.0 cm/sec Ao V2 max: 114.8 cm/sec LV V1 max: 92.0 cm/sec MV A max tiffany: 79.7 cm/sec Ao max P.3 mmHg LV V1 max P.4 mmHg MV E/A: 0.85 PA V2 max: 76.9 cm/sec TR max tiffany: 212.6 cm/sec TR max P.2 mmHg Interpretation Summary Normal LV size. Left ventricular systolic function is normal. The estimated ejection fraction is 55 %. Mild (1+) eccentric mitral valve insufficiency. Mild (1+) tricuspid valve insufficiency. No evidence for diastolic dysfunction. Compared to previous there is significant improvement Ordering Physician: Waldemar López Referring Physician: MEHDI HAIR Performed By: Tg Patterson, RDCS, RVT 06/08/17 1356 Date Waldemar López MD CC: Waldemar López MD; Mehdi Hair DO Date Dictated: 06/08/17 1004 Date Transcribed: 06/08/17 1356 Business Excellence Leader: Signed ALLERGIES ALLERGIES DATE TYPE / CODE NAME / CODE REACTION SEVERITY SOURCE 03/20/2018 Drug potassium/F Anaphylaxis Unknown [facility] [id number](R [facility] 87254(SNOMED XNORM) Repository CT) 03/20/2018 Drug codeine/F00 Vomiting Unknown [facility] All[facility]/4160 [id number](RXN Hospital 63441(SNOMED ORM) Repository CT) 09/29/2017 Drug acetaminoph Unknown Unknown [facility] All[facility]/4160 en/[id number] Hospital 85348(SNOMED 05(RXNORM) Repository CT) ENCOUNTERS ENCOUNTERS ADMIT/DISCHARGE ACCOUNT ADMITTING ENCOUNTER LOCATION SOURCE NUMBER CLASS 04/28/2018 [id number] Ambulatory [facility] ing:HPRAD Repository 04/28/2018 [id number] Ambulatory [facility]Building:B [facility] Repository 04/14/2018 [id number] Ambulatory [facility] ing:LAB.FUTUR Repository E 03/22/2018 [id number] Ambulatory [facility]Building:W [facility] Repository 03/20/2018/ [id number] JabierTal Ambulatory [facility] [address] [facility] Hospital ing:PCURoom: Repository FAL649Lay: 1 03/20/2018 [id number] Tal Suggs Ambulatory BMSBuilding:B [facility] Repository 03/20/2018 [id number] Jabier Tal Ambulatory BMSBuilding:B [facility] Repository 03/20/2018 [id number] Tal Suggs Ambulatory BMSBuilding:B [facility] Repository 03/20/2018 [id number] Ambulatory [facility]:W [facility] Repository 01/04/2018 [id number] [facility] [address] [facility] Hospital ing:LAB Repository 10/26/2017/ [id number] Emergency [facility] [address] [facility] Hospital ing:ED Repository 10/05/2017/ [id number] [facility]ulatory [facility] [address] [facility] Hospital ing:CR Repository 09/29/2017/ [id number] Ambulatory [facility]:B [facility] 0 [facility] Repository 09/28/2017/ [id number] Ambulatory [facility] [address] [facility] Hospital ing:CR Repository 09/02/2017/ [id number] [facility] Rep[facility] 08/25/2017 [id number] [facility] ing:PSN Repository 08/25/2017 [id number] Ambulatory [facility]:W [facility] Repository 08/03/2017/ [id number] Ambulatory [facility] [address] [facility] Hospital ing:CR Repository 07/22/2017/ [id number] Ambulatory [facility]Building:B [facility] 4 [facility] Repository 07/22/2017 [id number] Ambulatory [facility] ing:LAB Repository 07/22/2017 [id number] Ambulatory [facility] ing:LAB.FUTUR Repository E 07/03/2017/ [id number] [facility] 7 [facility] ing:CR Repository 06/26/2017 [id number] Ambulatory [facility] 2 [facility] ing:CR Repository 06/25/2017 [id number] Ambulatory [facility] ing:CR Repository 06/16/2017/ [id number] Ambulatory BMSBuilding:B [facility] 1 [facility] Repository 06/08/2017 [id number] Ambulatory [facility] ing:CVS Repository 06/08/2017 [id number] Ambulatory B[facility]Building:W [facility] 3 [facility] Repository 05/20/2017/ [id number] Ambulatory [facility] 1 [facility] ing:MASS Repository PAYERS PAYERS ENCOUNTER GUARANTOR PAYER SUBSCRIBER SOURCE 04/28/2018 JOSE L Primary NOT GIVENUNK [place] [id number] Insurance:SELF PAY [address] Number: Effective Repository [id number]: 330) Date:2018-04-28 [phone] () 04/28/2018 JOSE L Primary JOSE L [place] [id number] Insurance:PARAMOUNT BENNETTDOB: [facility] [id number] Number: Repository [address]Cpp: 330 [id number] [phone] () Date:1921-43-98ED [address] [place] [address]ZV: 04/28/2018 Secondary NOT GIVENUNK [place] Insurance:SELF PAY [facility] Number: Effective Repository Date:2018-04-28 04/14/2018 JOSE L Primary JOSE L Luís [id number] Insurance:PARAMOUNT BENNETTDOB: [facility] [id number] Number: Repository [address]Jij: (330 [id number] [phone] (HP) Date:3646-47-28QX [address] [place] [address]DS: 04/14/2018 Secondary NOT GIVENUNK Luís Insurance:SELF PAY [facility] Number: Effective Repository Date:2018-04-12 03/22/2018 JOSE L Primary JOSE L [place] [id number] Insurance:PARAMOUNT BENNETTDOB: Community [address]IN DRAPT [facility]ANT[facility] [id number] [place] Number: Repository [address]Fiu: 330 [id number] [phone] (HP) Date:1987-01-73TK [address] [place] [address]UN: 03/22/2018 Secondary NOT GIVENUNK Luís Insurance:SELF PAY [facility] Number: Effective Repository Date:2018-03-22 03/20/2018 JOSE L Primary JOSE L [place] [id number] Insurance:PARAMOUNT BENNETTDOB: Community ERIN DRAPT ADVANTAGE [facility] [id number] [place] Number: Repository [id number]: (330 [id number] [phone] () Date:9460-31-95XS [address] [address]HZ: 03/20/2018 Secondary NOT GIVENUNK [place] Insurance:SELF PAY [facility] Hospital Number: Effective Repository Date:2018-03-20 03/20/2018 JOSE L Primary JOSE L Luís [id number] Insurance:PARAMOUNT BENNETTDOB: Community ERIN DRAPT ADVANTAGE [facility] [id number] [place] Number: Repository [address]Zcy: (330 [id number] [phone] () Date:2764-49-28YO [address] [place] [address]CR: 03/20/2018 Secondary NOT GIVENUNK [place] Insurance:SELF PAY [facility] Number: Effective Repository Date:2018-03-20 03/20/2018 JOSE L Primary JOSE Guevara [place] [id number] Insurance:PARAMOUNT BENNETTDOB: Critical access hospitalLEIGHANN BAIN [facility] [id number], [place] Number: Repository [address]Jlt: 330 [id number] [phone] () Date:2150-23-52GL [address] [place] [address]YH: 03/20/2018 Secondary NOT GIVENUNK Luís Insurance:SELF PAY [facility] Hospital Number: Effective Repository Date:2018-03-20 03/20/2018 JOSE L Primary JOSE Guevara Luís [id number] Insurance:PARAMOUNT BENNETTDOB: Critical access hospitalLEIGHANN BAIN [facility] [id number], [place] Number: Repository [address]Xdl: 330 [id number] [phone] () Date:8403-03-78OG [address] [place] [address]EO: 03/20/2018 Secondary NOT GIVENUNK [place] Insurance:SELF PAY [facility] Hospital Number: Effective Repository Date:2018-03-20 03/20/2018 JOSE L Primary JOSE Guevara Luís [id number] Insurance:PARAMOUNT BENNETTDOB: Critical access hospitalLEIGHANN BAIN [facility] [id number] Number: Repository [id number]: 330 [id number] [phone] () Date:2164-12-79HX [address] [place] [address]NT: 03/20/2018 Secondary NOT GIVENUNK [place] Insurance:SELF PAY [facility] Hospital Number: Effective Repository Date:2018-03-20 01/04/2018 JOSE L Primary Insurance:[facility] JOSE Guevara Luís [id number] [facility] BENNETTDOB: [facility] [id number], [place] Number: Repository [address]Dgs: 330 [id number] [phone]) Date:9878-07-56FH [address] [address]OUGWBNOZD, [place] [address]TH: CHECK WEBSITE 01/04/2018 Secondary NOT GIVENUNK [place] Insurance:SELF PAY [facility] Number: Effective Repository Date:2018-01-04 10/26/2017 JOSE Guevara Primary Insurance:[facility] JOSE Guevara [place] [id number] [facility]: Critical access hospitalROSE DRMOAB [facility] [id number] Number: Repository [address]Cxz: 330 [id number] [phone] () Date:1584-97-91CQ [address] [address]RTISDFHBM, [place] [address]BB: CHECK WEBSITE 10/26/2017 Secondary NOT GIVENUNK Luís Insurance:SELF PAY [facility] Number: Effective Repository Date:2017-10-26 10/05/2017 JOSE Guevara Primary Insurance:[facility] JOSE Paola TinsleyLuís [id number] [facility]ITALB: Critical access hospitalLEIGHANN ORELLANAMargaretville Memorial Hospital [id number] Number: Repository [address]Jbb: 330 [id number] [phone] () Date:7353-17-97VD [address] [address]XUAOOVFTS, [place] [address]NB: CHECK WEBSITE 10/05/2017 Secondary NOT GIVENUNK [place] Insurance:SELF PAY [facility] Number: Effective Repository Date:2017-10-04 09/29/2017 JOSE L Primary Insurance:[facility] JOSE Guevara [place] [id number] [facility]B: Critical access hospitalLEIGHANN ORELLANAMargaretville Memorial Hospital [id number] Number: Repository [address]Ngr: 330 [id number] [phone] () Date:8959-48-04NA [address] [address]ESCLLNIIY, [place] [address]UW: CHECK WEBSITE 09/29/2017 Secondary NOT GIVENUNK Luís Insurance:SELF PAY [facility] Hospital Number: Effective Repository Date:2017-09-29 09/28/2017 JOSE L Primary Insurance:[facility] JOSE Tinsleyoster [id number] [facility] BENNETTDOB: [facility] ERIN BAIN [facility] [id number] Number: Repository [address]Lrh: 330 [id number] [phone] (HP) Date:8516-36-98UU [address] [address], [place] [address]WV: CHECK WEBSITE 09/28/2017 Secondary NOT GIVENUNK Luís Insurance:SELF PAY [facility] Hospital Number: Effective Repository Date:2017-09-04 09/02/2017 JOSE L Primary Insurance:[facility] JOSE Guevara [place] [id number] [facility] BENNETTDOB: Critical access hospitalLEIGHANN BAIN [facility] [id number] [place] Number: Repository [address]Xyk: 330 [id number] [phone]) Date:0873-37-62KX [address] [address]VMGPHWUWT, [place] [address]HB: CHECK WEBSITE 09/02/2017 Secondary NOT GIVENUNK [place] Insurance:SELF PAY [facility] Number: Effective Repository Date:2017-08-04 08/25/2017 JOSE L Primary Insurance:[facility] JOSE Guevara Luís [id number] [facility] BENNETTDOB: [facility] ERIN BAIN [facility] [id number] Number: Repository [address]Xno: 330 [id number] [phone] () Date:8284-10-35OJ [address] [address]RVKZHLWLL, [place] [address]HQ: CHECK WEBSITE 08/25/2017 Secondary NOT GIVENUNK [place] Insurance:SELF PAY [facility] Hospital Number: Effective Repository Date:2017-08-04 08/25/2017 JOSE L Primary Insurance:[facility] JOSE Tinsleyoster [id number] [facility] BENNETTDOB: Critical access hospitalLEIGHANN BAIN [facility] [id number] Number: Repository [address]Cvx: 330 [id number] [phone]) Date:0452-95-45EL [address] [address]BNDRDDCIU, [place] [address]ZA: CHECK WEBSITE 08/25/2017 Secondary NOT GIVENUNK Luís Insurance:SELF PAY [facility] Hospital Number: Effective Repository Date:2017-08-25 08/03/2017 JOSE L Primary Insurance:[facility] JOSE Guevara Luís [id number] [facility] BENNETTDOB: [facility] ERIN BAIN [facility] [id number] Number: Repository [address]Ile: 330 [id number] [phone] () Date:7222-08-21FQ [address]IETOMOAHW, [place] [address]JV: CHECK WEBSITE 08/03/2017 Secondary NOT GIVENUNK Luís Insurance:SELF PAY [facility] Hospital Number: Effective Repository Date:2017-07-05 07/22/2017 JOSE Guevara Primary Insurance:[facility] JOSE Guevara [place] [id number] [facility] BENNETTDOB: Critical access hospitalLEIGHANN BAIN [facility] [id number] Number: Repository [address]Jfk: 330 [id number] [phone] () Date:6184-19-56OG [address] [address]UZNMIBHRC, [place] [address]HJ: CHECK WEBSITE 07/22/2017 Secondary NOT GIVENUNK Luís Insurance:SELF PAY [facility] Number: Effective Repository Date:2017-07-22 07/22/2017 JOSE Guevara Primary Insurance:[facility] JOSE Guevara Luís [id number] [facility]: Critical access hospitalLEIGHANN BAIN [facility] [id number] Number: Repository [address]Ebr: 330 [id number] [phone] () Date:0225-65-86CF [address] [address]WAZXFGSQX, [place] [address]MH: CHECK WEBSITE 07/22/2017 Secondary NOT GIVENUNK Luís Insurance:SELF PAY [facility] Number: Effective Repository Date:2017-07-22 07/22/2017 JOSE Guevara Primary Insurance:[facility] JOSE Guevara Luís [id number] [facility] BENNETTDOB: [facility] [id number] Number: Repository [address]Htp: 330 [id number] [phone]) Date:2662-00-77UO [address] [address]EGSFNSWBI, [place] [address]OF: CHECK WEBSITE 07/22/2017 Secondary NOT GIVENUNK [place] Insurance:SELF PAY [facility] Number: Effective Repository Date:2017-07-22 07/03/2017 JOSE L Primary Insurance:[facility] JOSE Guevara [place] [id number] [facility] BENNETTDOB: [facility] ERIN BAIN [facility] [id number] Number: Repository [address]Apy: 330 [id number] [phone]) Date:6321-21-30RY [address] [address]TKQVLNCQY, [place] [address]OO: CHECK WEBSITE 07/03/2017 Secondary NOT GIVENUNK Luís Insurance:SELF PAY [facility] Number: Effective Repository Date:2017-06-25 06/26/2017 JOSE L Primary Insurance:[facility] JOSE Guevara Luís [id number] [facility]ENTERNETTDOB: [facility] ERIN BAIN [facility] [id number] Number: Repository [address]Few: 330 [id number] [phone] () Date:1416-73-73UF [address] [address]TSFIQWSVJ, [place] [address]KE: CHECK WEBSITE 06/26/2017 Secondary NOT GIVENUNK Luís Insurance:SELF PAY [facility] Hospital Number: Effective Repository Date:2017-06-25 06/25/2017 JOSE L Primary Insurance:[facility] JOSE Guevara [place] [id number] [facility]ITALB: [facility] ERIN BAIN [facility] [id number] Number: Repository [address]Ghg: 330 [id number] [phone] (HP) Date:3630-60-97WM [address] [address]PNVMHENRR, [place] [address]NL: CHECK WEBSITE 06/25/2017 Secondary NOT GIVENUNK [place] Insurance:SELF PAY [facility] Hospital Number: Effective Repository Date:2017-06-19 06/16/2017 JOSE Guevara Primary Insurance:[facility] JOSE Guevara [place] [id number] [facility] BENNETTDOB: [facility] ERIN BAIN [facility] [id number] Number: Repository [address]Eox: 330 [id number] [phone] () Date:7228-06-92KQ [address] [address]ZGERGNOIR, [place] [address]WT: CHECK WEBSITE 06/16/2017 Secondary NOT GIVENUNK [place] Insurance:SELF PAY [facility] Number: Effective Repository Date:2017-03-18 06/08/2017 JOSE L Primary Insurance:[facility] JOSE Guevara [place] [id number] [facility] BENNETTDOB: Critical access hospitalLEIGHANN BAIN [facility] [id number] Number: Repository [address]Esz: 330 [id number] [phone] () Date:7565-11-14YU [address] [address]VOEKIAYNT, [place] [address]KD: CHECK WEBSITE 06/08/2017 Secondary NOT GIVENUNK Luís Insurance:SELF PAY [facility] Hospital Number: Effective Repository Date:2017-03-24 06/08/2017 JOSE L Primary Insurance:[facility] JOSE Guevara Luís [id number] [facility]AMER[facility]ENTERB: Critical access hospitalLEIGHANN BAIN [facility] [id number] Number: Repository [address]Jyi: 330 [id number] [phone] () Date:1962-74-36KS [address] [address]JRAFRXHKL, [place] [address]FU: CHECK WEBSITE 06/08/2017 Secondary NOT GIVENUNK [place] Insurance:SELF PAY [facility] Hospital Number: Effective Repository Date:2017-06-08 05/20/2017 JOSE L Primary Insurance:[facility] JOSE Guevara Luís [id number] [facility] BENNETTDOB: Critical access hospitalLEIGHANN BAIN [facility] [id number] Number: Repository [id number]: (344) [id number] [phone] () Date:3374-87-36QH [address] [address]GXTKXLXCQ, [place] [address]YJ: CHECK WEBSITE 05/20/2017 Secondary NOT GIVENUNK Luís Insurance:SELF PAY [facility] Number: Effective Repository Date:2017-04-28
== END 2018-03-22 10:44 | disposition home or self-care (01) ==
LOC: ED 20:17 → PCU 21:19
PROVIDERS: Hospitalist; Admitting Provider Internal Medicine; Emergency Provider Emergency Medicine; Family Provider Family Medicine; PCP Family Medicine; Visit Provider Internal Medicine
DX: R07.89 Other chest pain (principal); I95.9 Hypotension, unspecified; I25.2 Old myocardial infarction; R00.2 Palpitations; E78.5 Hyperlipidemia, unspecified; I10 Essential (primary) hypertension; F32.9 Major depressive disorder, single episode, unspecified; I25.10 Atherosclerotic heart disease of native coronary artery without angina pectoris; Z79.899 Other long term (current) drug therapy; Z87.891 Personal history of nicotine dependence
CPT/HCPCS: 36415; 71045; 78452; 80048; 80053; 80061; 83880; 84443; 84484; 85025; 85027; 85379; 85610; 85730; 93005; 93017; 96360; 96372; 99218; 99285; A9500; J7040; A4216; G0378

== ENCOUNTER → 2018-04-14 06:59 | Outpatient (CLI) | payer MEDICAID, SELFPAY ==
[2018-04-12 13:35] VITALS: BMI 23.5
[2018-04-14 07:45] LABS: Erythrocyte Sedimentation Rate 9 mm/hr (0-30)
[2018-04-14 09:11] LABS: CRP < 2.90 mg/L (0.0-3.0); Estradiol 13.5 pg/mL; Rheumatoid Factor < 10.0 IU/mL (<15)
[2018-04-14 09:13] LABS: Progesterone Level 0.25 ng/mL (See Comment)
[2018-04-16 12:32] LABS: ANTINUCLEAR ANTIBODIES DIRECT Negative (Negative)
[2018-04-17 14:07] LABS: DHEA Sulfate 42.7 ug/dL (29.4-220.5); Testosterone, % Free 1.28 % (0.50-2.80); Testosterone, Free 0.26 ng/dL (0.10-0.85); Testosterone, Total 20 ng/dL (3-41)
[2018-04-19 09:52] LABS: CCP IgG Antibodies 8 units (0-19)
== END ==
PROVIDERS: Family Provider Family Medicine; PCP Family Medicine; Referring Provider Family Medicine; Visit Provider Family Medicine
DX: R23.2 Flushing (principal); M25.60 Stiffness of unspecified joint, not elsewhere classified; E27.9 Disorder of adrenal gland, unspecified; R53.82 Chronic fatigue, unspecified
CPT/HCPCS: 36415; 82533; 82627; 82670; 84144; 84402; 84403; 85652; 86038; 86140; 86200; 86225; 86235; 86431; 82626

== ENCOUNTER → 2018-05-10 15:53 | Outpatient (CLI) | payer MEDICAID, SELFPAY ==
[2018-05-06 16:58] VITALS: BMI 24.1
[2018-05-13 13:28] LABS: HPV Reflexed? NOT INDICATED
== END ==
PROVIDERS: Family Provider Family Medicine; PCP Family Medicine; Visit Provider Family Medicine
DX: Z12.4 Encounter for screening for malignant neoplasm of cervix (principal); Z01.419 Encounter for gynecological examination (general) (routine) without abnormal findings
CPT/HCPCS: 88175; G0145

== ENCOUNTER → 2018-05-27 08:45 | Outpatient (CLI) | payer MEDICAID, SELFPAY ==
[2018-05-06 16:58] VITALS: BMI 24.1
[2018-05-13 09:22] VITALS: BMI 24.1
--- NOTE | 2018-05-27 08:57 | BD_ITS ---
STUDY: DUAL ENERGY X-RAY ABSORPTIOMETRY / DXA REASON FOR EXAM: Female, 62 years old. Early menopause. Loss of height. TECHNIQUE: Bone Mineral Density (BMD) measurements of lumbar spine and bilateral hips were obtained. COMPARISON: Comparison is made with prior study dated September 13, 2014. FINDINGS: Lumbar Spine (L1-L4): g/cm2 (0.694) / T-score (-4.2) / Z-score (-3.0) Findings are suggestive of osteoporosis with a high fracture risk. Left Femur Total: g/cm2 (0.673) / T-score (-2.7) / Z-score (-1.7) Left Femoral Neck: g/cm2 (0.796) / T-score (-1.7) / Z-score (-0.5) Right Femur Total: g/cm2 (0.659) / T-score (-2.8) / Z-score (-1.8) Right Femoral Neck: g/cm2 (0.785) / T-score (-1.8) / Z-score (-0.6) The T-Scores on the most recent prior examination were: Lumbar Spine (L1-L4): There has been improvement of bone density since the previous examination. Left Femur Total: which represents a worsening of 2.6%. Right Femur Total: which represents a worsening of 4.6%. BD/Dexa Bone Density Study IMPRESSION: The patient is considered osteoporotic as outlined below according to World Ed Organization (WHO) criteria with a high fracture risk. There has been worsening of bone density since the previous examination. Reference Information: The T-score is the number of standard deviations above or below the standard which is normal for young adults at their peak bone mineral density. The World Health Organization (WHO) interprets the T-scores as follows: Above -1 Normal bone density Between -1 and -2.5 Osteopenia Equal to / or below -2.5 Osteoporosis As a practical clinical guideline, osteopenia may be graded as follows: Mild -1 through -1.5 Moderate -1.6 through -2.0 Severe -2.1 through -2.4 The Z-score is the number of standard deviations above or below age-matched controls. A Z-score of less than -1.5 would be considered abnormal. References: 1. NIH Osteoporosis and Related Bone Diseases http://www.osteo.org 2. International Society for Clinical Densitometry http://www.iscd.org 3. National Osteoporosis Foundation http://www.nof.org Electronically Signed: Junior Plascencia MD at 9:08 EST , Service support ,
== END ==
PROVIDERS: Family Provider Family Medicine; PCP Family Medicine; Referring Provider Family Medicine; Visit Provider Family Medicine
DX: M81.0 Age-related osteoporosis without current pathological fracture (principal)
CPT/HCPCS: 77080

== ENCOUNTER → 2018-09-15 06:52 | Outpatient (CLI) | payer MEDICAID, SELFPAY ==
[2018-07-28 09:29] VITALS: BMI 24.1
[2018-09-15 07:20] LABS: Absolute Lymphocyte Count 2.55 X10^3/ul (0.83-4.51); Absolute Neutrophil Count 2.3 X10^3/uL (2.0-7.7); Basophil# 0.03 X10^3/uL; Basophil% 0.5 % (0-1); Eosinophil# 0.09 X10^3/uL; Eosinophils% 1.6 % (0-5); Hematocrit 41.9 % (37-47); Lymphocyte # 2.55 X10^3/ul (4.0); Lymphocyte % 45.9 % (19-41); Mean Corp Hgb Conc 33.4 g/gl (32-36); Mean Corpuscular Hgb 27.5 pg (27.0-32.0); Mean Corpuscular Volume 82.2 fL (81-99); Mean Platelet Vol. 10.4 fl (6.2-12.0); Monocyte# 0.54 X10^3/uL; Monocyte% 9.7 % (0-10); Neutrophil # 2.33 X10^3/uL (2.7-7.7); Neutrophil % 42.1 % (47-70); Platelet Count 289 K/mm3 (150-450); RBC Distribution Width CV 13.1 % (11.6-14.6); RBC Distribution Width SD 39.9 fl (35.1-43.9); White Blood Count 5.6 K/mm3 (4.4-11.0)
[2018-09-15 07:22] LABS: POSITIVE COUNT NO; POSITIVE DIFFERENTIAL NO; POSITIVE MORPHOLOGY NO
[2018-09-15 07:23] LABS: Erythrocyte Sedimentation Rate 1 mm/hr (0-30)
[2018-09-15 07:33] LABS: ALB/GLOB Ratio 1.1 RATIO (0.9-2.4); AST(SGOT) 19 U/L (15-37); Alanine Aminotransfer ALT/SGPT 29 U/L (13-56); Albumin, Serum 3.6 g/dL (3.2-5.0); Alkaline Phosphatase 121 U/L (45-117); Anion Gap 3 (5-15); BUN 13 mg/dL (7-18); BUN/Creat Ratio 19.5 RATIO (10-20); CRP < 2.90 mg/L (0.0-3.0); Calcium,Total 8.7 mg/dL (8.5-10.1); Chloride 107 mmol/L (98-107); Creatinine, Serum 0.67 mg/dL (0.55-1.02); EST Glomerular Filtration Rate 95 mL/min (>60); Est Glom Filt Rate - Afr Amer 116 mL/min (>60); Globulin 3.3 g/dL (2.2-4.2); Glucose 95 mg/dL (74-106); Potassium 3.8 mmol/L (3.5-5.1); Protein, Total 6.9 g/dL (6.4-8.2); Sodium Level 139 mmol/L (136-145)
== END ==
PROVIDERS: Family Provider Family Medicine; PCP Family Medicine; Referring Provider Family Medicine; Visit Provider Family Medicine
DX: R05 Cough (principal); R51 Headache; R68.2 Dry mouth, unspecified; R42 Dizziness and giddiness
CPT/HCPCS: 36415; 80053; 85025; 85652; 86140

== ENCOUNTER 2019-02-13 01:40 | Emergency (ER) | payer OTHER, SELFPAY ==
[2018-09-30 10:25] VITALS: BMI 22.5
[2019-02-13 01:40] VITALS: BP 121/82; PULSE 90; RESP 15; TEMP 36.8; O2SAT 99; BMI 24.0
--- NOTE | 2019-02-13 01:51 | ED.VIS.GI ---
History of Present Illness Chief Complaint: Abd Pain Narrative: Patient presenting for evaluation secondary to a diarrheal illness. Patient states that over the course of the last 3 to 4 days she has been dealing with significant diarrhea. She has been having upwards of 10-15 loose watery stools per day. She states that she since has developed some nausea and vomiting, and today she was starting to develop feelings of lightheadedness and dehydration. Patient denies that there is any sort of blood or mucus in her stool. She denies any recent antibiotic exposures, hospital admissions. She denies any significant penitentiary exposures, recent travel, or abnormal water intake. She did have a sick contact and a grandchild that developed a GI illness within the last week. No exacerbating relieving factors with this. Patient has some mild crampy abdominal pain associated with this. She denies any presence of fevers. Review of systems otherwise negative. Past Medical History - Allergies and Home Meds Allergies/Adverse Reactions: Allergies potassium Allergy (Verified 02/13/19 01:43) Anaphylaxis PATIENT CAN TOLERATE PO POTASSIUM NOT IV, PATIENT STATES HEART STOPPED WHEN GIVEN IV POTASSIUM. codeine Adverse Reaction (Verified 02/13/19 01:43) Vomiting Primary Care Physician: Abraham Hair DO [Primary Care Provider] - Past Medical History: - - Takosubo cardiomyopathy Surgical History: cataract, - - R carpal tunnel surgery, BL cataract, ABEBA (unilateral, unclear which side), Appendectomy. Smoking Status: Never smoker - Family History Maternal Family History: Family History (Last Updated 09/30/18 @ 10:31 by Grisel Rosa) Father Heart disease Mother Heart disease Brother Heart disease Myocardial infarction CAD (coronary artery disease) Sister Heart disease CAD (coronary artery disease) Family History: Reports: - - CHF, valvular disease Paternal Family History: Family History (Last Updated 09/30/18 @ 10:31 by Grisel Rosa) Father Heart disease Mother Heart disease Brother Heart disease Myocardial infarction CAD (coronary artery disease) Sister Heart disease CAD (coronary artery disease) Family History: Reports: Heart Disease Review of Systems General: Reports: Malaise. Denies: Fever Eyes: Denies: Visual changes - bilaterally, Diplopia ENT: Denies: Rhinorrhea, Sore throat Cardiovascular: Reports: - - Mild lightheadedness, no syncope. Denies: Chest pain, Palpitations Respiratory: Denies: Dyspnea, Cough, Dyspnea on exertion Gastrointestinal: Reports: Abdominal pain, Nausea, Vomiting, Diarrhea. Denies: Melena, Hematochezia Genitourinary: Denies: Dysuria, Hematuria, Frequency Musculoskeletal: Denies: Back pain, Extremity Pain Skin: Denies: Rash, Wounds Neurological: Denies: Headache, Weakness, Numbness Psych: Denies: Depression Endocrine: Denies: Polyuria Hematologic: Denies: Easy bruising, Easy bleeding Allergy: Denies: Uticaria Physical Exam Vital Signs/Narrative: Vital Signs Temp Pulse Resp BP Pulse Ox 02/13/19 01:40 98.3 F 90 15 121/82 H 99 Inital Vital Signs reviewed: Yes General: Well nourished, Well developed, - - Somewhat pale, mildly ill-appearing Head: Normocephalic, Atraumatic Eyes: Perrl, EOMI. Negative for: Pale conjunctiva ENT: No rhinorrhea, Dry mucous membranes Neck: Supple, Nontender Cardiovascular: Regular rate, Regular rhythm, No murmurs Respiratory: No distress, CTA bilaterally, Chest nontender Abdomen: Soft, Nondistended, Normal bowel sounds, Tender - Mild diffuse nonlocalizing. Negative for: Guarding, Rebound tenderness Back: Nontender, Normal Inspection Extremities: Nontender, No edema Skin: Normal color, No rash Neurological: Alert, Oriented x3, Cranial nerves II-XII grossly intact, Normal Strength, Normal Sensation Psychological: Normal affect, Normal Mood Diagnostic/Tx/Re-eval - Medical Decision Making Patient presented secondary to a diarrheal illness. Meticulous history shows that the patient does not have risk for C. difficile or for any sort of bacterial infection. Patient was given 2 L of lactated Ringer's in the emergency department. A laboratory work-up was obtained, the patient was found to be mildly hypokalemic, with mild elevation of alkaline phosphatase but no other evidence of acute pathology. Patient was unable to provide a stool sample in the emergency department, but she does have a sick contact, and this likely is a viral enteritis. Patient was given Bentyl as well as Imodium and did have symptomatic improvement in the emergency department. At this point I believe she is safe and appropriate for discharge. Her orthostatic vital signs were found to be negative. Patient be discharged with a course of Bentyl and instructions on aggressive hydration. Disposition: Home ED Disposition - Plan for ED Patient: Disposition: Home or Assisted Living Diagnosis: Viral enteritis Instructions: DIARRHEA, Viral (Child) (Adult) Prescriptions: Dicyclomine HCl [Bentyl] 20 mg PO TIDAC #20 cap Prescription Printed Referrals: Abraham Hair DO [Primary Care Provider] - 3-5 Days if not improving
[2019-02-13] MEDS: Lactated Ringers 2,000 ML 999 ML IV (02:05)
[2019-02-13] MEDS: Ondansetron 4 MG/2 ML Vial IV (02:06)
[2019-02-13] MEDS: Loperamide 2 MG Capsule 4 MG PO (02:06)
[2019-02-13 02:07] LABS: Absolute Lymphocyte Count 1.09 X10^3/uL (0.83-4.51); Absolute Neutrophil Count 6.3 X10^3/uL (2.0-7.7); Basophil# 0.01 X10^3/uL; Basophil% 0.1 % (0-1); Eosinophil# 0.11 X10^3/uL; Eosinophils% 1.4 % (0-5); Hematocrit 40.3 % (37-47); Hemoglobin 13.4 g/dL (12.0-15.0); Lymphocyte # 1.09 X10^3/ul (4.0); Lymphocyte % 13.6 % (19-41); Mean Corp Hgb Conc 33.3 g/dL (32-36); Mean Corpuscular Hgb 27.6 pg (27.0-32.0); Mean Corpuscular Volume 83.1 fL (81-99); Mean Platelet Vol. 10.2 fl (6.2-12.0); Monocyte# 0.54 X10^3/uL; Monocyte% 6.7 % (0-10); NRBC Flagged by Analyzer 0 % (0-5); Neutrophil # 6.26 X10^3/uL (2.7-7.7); Neutrophil % 78.1 % (47-70); Platelet Count 223 K/mm3 (150-450); RBC Distribution Width CV 13.1 % (11.6-14.6); RBC Distribution Width SD 39.7 fl (35.1-43.9); Red Blood Count 4.85 M/mm3 (4.2-5.4)
[2019-02-13] MEDS: Dicyclomine 20 MG/2 ML Vial IM (02:08)
[2019-02-13 02:21] LABS: ALB/GLOB Ratio 0.9 RATIO (0.9-2.4); AST(SGOT) 14 U/L (15-37); Alanine Aminotransfer ALT/SGPT 22 U/L (13-56); Albumin, Serum 3.3 g/dL (3.2-5.0); Alkaline Phosphatase 122 U/L (45-117); Anion Gap 9 (5-15); BUN 10 mg/dL (7-18); BUN/Creat Ratio 14.3 RATIO (10-20); Calcium,Total 8.7 mg/dL (8.5-10.1); Chloride 105 mmol/L (98-107); EST Glomerular Filtration Rate 90 mL/min (>60); Est Glom Filt Rate - Afr Amer 109 mL/min (>60); Estimated Creatinine Clearance 82.07 ml/min; Globulin 3.7 g/dL (2.2-4.2); Glucose 135 mg/dL (74-106); Potassium 3.2 mmol/L (3.5-5.1); Sodium Level 138 mmol/L (136-145)
[2019-02-13 03:01] VITALS: BP 115/60; BP 116/71; BP 124/68; PULSE 90; PULSE 93; PULSE 94
[2019-02-13 03:34] VITALS: BP 136/89; PULSE 99; RESP 15; O2SAT 96
[2019-02-13 05:04] VITALS: BP 136/90; PULSE 95; RESP 15
== END 2019-02-13 05:04 | disposition home or self-care (01) ==
PROVIDERS: Emergency Provider Emergency Medicine; Family Provider Family Medicine; PCP Family Medicine
DX: A08.4 Viral intestinal infection, unspecified (principal); I51.81 Takotsubo syndrome
CPT/HCPCS: 80053; 85025; 99285; J7030; A4216; J2405

== ENCOUNTER → 2019-10-18 08:45 | Outpatient (CLI) | payer OTHER, SELFPAY ==
[2019-10-18 13:05] LABS: Free T3 3.2 pg/mL (2.18-3.98); T4 Free Direct 0.95 ng/dL (0.76-1.46); Thyroid Stim Hormone (TSH) 1.53 uIU/mL (0.358-3.74)
== END ==
PROVIDERS: PCP Family Medicine; Visit Provider Family Medicine
DX: K14.6 Glossodynia (principal); E03.9 Hypothyroidism, unspecified
CPT/HCPCS: 36415; 84439; 84443; 84481

== ENCOUNTER → 2020-02-27 11:05 | Outpatient (CLI) | payer OTHER, SELFPAY ==
[2020-02-27 15:23] LABS: Absolute Lymphocyte Count 2.98 X10^3/uL (0.83-4.51); Absolute Neutrophil Count 2.2 X10^3/uL (2.0-7.7); Basophil# 0.04 X10^3/uL; Basophil% 0.7 % (0-1); Eosinophil# 0.12 X10^3/uL; Eosinophils% 2.1 % (0-5); Hematocrit 44.4 % (37-47); Hemoglobin 14.3 g/dL (12.0-15.0); Lymphocyte # 2.98 X10^3/ul (4.0); Lymphocyte % 51.3 % (19-41); Mean Corp Hgb Conc 32.2 g/dL (32-36); Mean Corpuscular Hgb 27.8 pg (27.0-32.0); Mean Corpuscular Volume 86.2 fL (81-99); Mean Platelet Vol. 11.2 fl (6.2-12.0); Monocyte# 0.48 X10^3/uL; Monocyte% 8.3 % (0-10); NRBC Flagged by Analyzer 0 % (0-5); Neutrophil # 2.18 X10^3/uL (2.7-7.7); Neutrophil % 37.4 % (47-70); Platelet Count 314 K/mm3 (150-450); RBC Distribution Width CV 13.1 % (11.6-14.6); Red Blood Count 5.15 M/mm3 (4.2-5.4); White Blood Count 5.8 K/mm3 (4.4-11.0)
[2020-02-27 15:44] LABS: AST(SGOT) 34 U/L (15-37); Alanine Aminotransfer ALT/SGPT 69 U/L (13-56); Albumin, Serum 3.8 g/dL (3.2-5.0); Alkaline Phosphatase 161 U/L (45-117); Anion Gap 7 (5-15); BUN 14 mg/dL (7-18); Calcium,Total 9.1 mg/dL (8.5-10.1); Chloride 107 mmol/L (98-107); EST Glomerular Filtration Rate 90 mL/min (>60); Est Glom Filt Rate - Afr Amer 109 mL/min (>60); Ferritin 36 ng/mL (8-252); Globulin 3.9 g/dL (2.2-4.2); Glucose 87 mg/dL (74-106); Iron 62 ug/dL (50-170); Potassium 3.6 mmol/L (3.5-5.1); Protein, Total 7.7 g/dL (6.4-8.2); Sodium Level 139 mmol/L (136-145)
[2020-02-29 14:53] LABS: ANTINUCLEAR ANTIBODIES DIRECT Negative (Negative)
== END ==
PROVIDERS: PCP Family Medicine; Visit Provider Family Medicine
DX: L65.9 Nonscarring hair loss, unspecified (principal); R53.83 Other fatigue
CPT/HCPCS: 36415; 80053; 82728; 83540; 85025; 86038; 86225; 86235

== ENCOUNTER → 2020-03-05 12:57 | Outpatient (CLI) | payer OTHER, SELFPAY ==
--- NOTE | 2020-03-05 13:01 | ECHOD_ITS ---
Reason For Study: Fatigue, hx of Takotsubo CMP Procedure This was a 2D Doppler, Color Flow transthoracic echocardiogram. Exam performed in department. Left Ventricle Normal LV size. Left ventricular systolic function is normal. The estimated ejection fraction is 60 %. Stage 1 diastolic dysfunction. No regional wall motion abnormalities noted. Right Ventricle Normal RV size. Normal systolic function. Atria Normal left atrium. Normal right atrium. Mitral Valve Normal mitral valve. Tricuspid Valve Normal tricuspid valve. Mild (1+) tricuspid valve insufficiency. Pulmonary artery systolic pressure is 24 mmHg. Aortic Valve Normal aortic valve. Pulmonic Valve Normal pulmonic valve. Great Vessels Normal aortic root. The pulmonary artery is normal size. Normal inferior vena cava. Pericardium/Pleural No pericardial effusion. MMode/2D Measurements & Calculations LVIDd: 3.5 cm IVSd: 0.92 cm Ao root diam: 3.0 cm LVIDs: 2.0 cm LVPWd: 0.93 cm RVDd: 2.9 cm FS: 42.7 % LAV(MOD-bp): 32.0 ml LVAd ap4: 22.4 cm2 SV(MOD-sp4): 31.6 ml LAV(MOD-bp) Indexed: 17.4 ml/m2 EDV(MOD-sp4): 54.5 ml LAV(MOD-sp2): 29.4 ml EDV(sp4-el): 56.9 ml LAV(MOD-sp4): 27.5 ml LVAs ap4: 13.2 cm2 ESV(MOD-sp4): 22.8 ml ESV(sp4-el): 22.2 ml EF(MOD-sp4): 58.1 % EF(sp4-el): 60.9 % SV(sp4-el): 34.6 ml LA A4 area: 11.4 cm2 LA dimension(2D): 2.5 cm RA A4 area: 10.4 cm2 Doppler Measurements & Calculations MV E max livan: 64.2 cm/sec Lat Peak E' Livan: 6.2 cm/sec Med Peak E' Livan: 5.4 cm/sec MV A max livan: 81.2 cm/sec E/E' lat: 10.4 E/E' med: 11.8 MV E/A: 0.79 Ao V2 max: 134.2 cm/sec LV V1 max: 102.2 cm/sec PA V2 max: 125.0 cm/sec Ao max P.2 mmHg LV V1 max P.2 mmHg TR max livan: 228.1 cm/sec TR max P.8 mmHg Interpretation Summary Normal LV size. Left ventricular systolic function is normal. The estimated ejection fraction is 60 %. Stage 1 diastolic dysfunction. Ordering Physician: Abraham Hair Referring Physician: Abraham Hair Performed By: Mary Park RDCS
== END ==
PROVIDERS: PCP Family Medicine; Referring Provider Family Medicine; Visit Provider Family Medicine
DX: I51.81 Takotsubo syndrome (principal)
CPT/HCPCS: 93306

== ENCOUNTER → 2020-09-17 11:33 | Outpatient (CLI) | payer OTHER, SELFPAY ==
--- NOTE | 2020-09-17 11:36 | RAD_ITS ---
STUDY: X-RAY RIGHT FOOT, FIFTH TOE REASON FOR EXAM: Pain and swelling of the fifth toe after injury 3 days ago. TECHNIQUE: 3 view(s) of the toe were obtained. COMPARISON: None. FINDINGS: Normal visualized metatarsus. Normal metatarsophalangeal (M.T.P) joint. There is mild lateral subluxation of the fifth proximal interphalangeal joint. Normal distal interphalangeal joint. Normal phalanges and interphalangeal joints. There is soft tissue swelling. RAD/Toe(s) Min 2 Views IMPRESSION: Mild lateral subluxation of the fifth proximal interphalangeal joint. Soft tissue swelling. Electronically Signed: Christophe Edwards MD at 11:56 EDT Tel , Service support ,
== END ==
PROVIDERS: PCP Family Medicine; Referring Provider Family Medicine; Visit Provider Family Medicine
DX: M79.674 Pain in right toe(s) (principal)
CPT/HCPCS: 73660

== ENCOUNTER → 2021-02-08 16:17 | Outpatient (CLI) | payer OTHER, SELFPAY | PROVIDERS: PCP Family Medicine; Referring Provider Family Medicine; Visit Provider Family Medicine | DX: R05.9 Cough, unspecified (principal) | CPT/HCPCS: 87635; U0005; U0003 ==

== ENCOUNTER 2021-06-18 09:12 | Outpatient (CLI) | payer OTHER, SELFPAY ==
--- NOTE | 2021-06-18 09:18 | RAD_ITS ---
STUDY: X-RAY - THORACIC SPINE REASON FOR EXAM: Female, 65 years old. PAIN TECHNIQUE: 3 view(s) of the thoracic spine were obtained. COMPARISON: 04/28/2018 FINDINGS: Normal kyphosis of the thoracic spine. There is no substantial scoliosis. Interval development of a moderate compression fracture of the T7 vertebra which may be acute, subacute, chronic. Clinical correlation and MRI would be useful. Chronic mild compression fracture of T6 which is unchanged. Normal disc space heights. The soft tissue structures are unremarkable. RAD/Thoracic Spine 3 Views IMPRESSION: New moderate compression fracture T7 which may be acute, subacute, or chronic. Clinical correlation and MRI would be useful. Electronically Signed: Dioni Coppola MD at 9:00 EDT ,
--- NOTE | 2021-06-18 09:20 | RAD_ITS ---
STUDY: X-RAY - LUMBAR SPINE REASON FOR EXAM: Female, 65 years old patient with low back pain. TECHNIQUE: Five view(s) of the lumbar spine were obtained. COMPARISON: None FINDINGS: There is an exaggerated lumbar lordosis. There is mild curvature of the lumbar spine with convexity towards the right. There is a normal alignment of the vertebrae. There is mild compression fracture of L2. There is generalized demineralization of the vertebral bodies. There is narrowing of L5-S1 disc space. The soft tissue structures are unremarkable. RAD/L/S Spine Min 4 Views IMPRESSION: 1. Osteoporosis. 2. Degenerative disc disease at L5-S1. Electronically Signed: Naya Mercado MD at 13:22 EDT ,
== END 2021-06-18 23:59 | disposition home or self-care (01) ==
LOC: MTRAD 09:16
PROVIDERS: PCP Family Medicine; Referring Provider Family Medicine; Visit Provider Family Medicine
DX: M54.50 Low back pain, unspecified (principal); M54.6 Pain in thoracic spine
CPT/HCPCS: 72072; 72110

== ENCOUNTER → 2021-07-30 | Outpatient (CLI) | payer OTHER, SELFPAY ==
--- NOTE | 2021-07-30 08:30 | BD_ITS ---
STUDY: DUAL ENERGY X-RAY ABSORPTIOMETRY / DXA REASON FOR EXAM: Female, 65 years old. M810. The patient is postmenopausal. TECHNIQUE: Bone Mineral Density (BMD) measurements of lumbar spine and bilateral hips were obtained. COMPARISON: Comparison is made with prior study of 05/27/2018. FINDINGS: Lumbar Spine (L1-L4): g/cm2 (0.549) / T-score (-5.0) / Z-score (-3.2) Findings are suggestive of osteoporosis with a high fracture risk. Left Femur Total: g/cm2 (0.642) / T-score (-2.5) / Z-score (-1.3) Left Femoral Neck: g/cm2 (0.589) / T-score (-2.3) / Z-score (-0.9) Right Femur Total: g/cm2 (0.629) / T-score (-2.6) / Z-score (-1.4) Right Femoral Neck: g/cm2 (0.583) / T-score (-2.4) / Z-score (0.9) The T-Scores on the most recent prior examination were: Lumbar Spine (L1-L4): There has been worsening of bone density since the previous examination. Left Femur Total: which represents an improvement of 4.1%. Right Femur Total: which represents an improvement of 4.3%. BD/Dexa Bone Density Study IMPRESSION: The patient is considered osteoporotic as outlined below according to World Ed Organization (WHO) criteria with a high fracture risk. There has been improvement of bone density since the previous examination. Reference Information: The T-score is the number of standard deviations above or below the standard which is normal for young adults at their peak bone mineral density. The World Health Organization (WHO) interprets the T-scores as follows: Above -1 Normal bone density Between -1 and -2.5 Osteopenia Equal to / or below -2.5 Osteoporosis As a practical clinical guideline, osteopenia may be graded as follows: Mild -1 through -1.5 Moderate -1.6 through -2.0 Severe -2.1 through -2.4 The Z-score is the number of standard deviations above or below age-matched controls. A Z-score of less than -1.5 would be considered abnormal. References: 1. NIH Osteoporosis and Related Bone Diseases www osteo.org 2. International Society for Clinical Densitometry www iscd.org 3. National Osteoporosis Foundation www nof.org Electronically Signed: Junior Plascencia MD at 10:59 EDT ,
== END | disposition home or self-care (01) ==
PROVIDERS: PCP Family Medicine; Visit Provider Family Medicine
DX: M81.0 Age-related osteoporosis without current pathological fracture (principal); S32.000D Wedge compression fracture of unspecified lumbar vertebra, subsequent encounter for fracture with routine healing
CPT/HCPCS: 77080

== ENCOUNTER → 2021-10-08 | Outpatient (CLI) | payer OTHER, SELFPAY ==
[2021-10-08 15:22] LABS: Vitamin D,25 Hydroxy 49.6 ng/mL
[2021-10-08 15:42] LABS: AST(SGOT) 35 U/L (15-37); Alanine Aminotransfer ALT/SGPT 76 U/L (13-56); Albumin, Serum 3.9 g/dL (3.2-5.0); Alkaline Phosphatase 127 U/L (45-117); Anion Gap 4 (5-15); BUN 13 mg/dL (7-18); BUN/Creat Ratio 17.7 RATIO (10-20); Chloride 102 mmol/L (98-107); Creatinine, Serum 0.74 mg/dL (0.55-1.02); EST Glomerular Filtration Rate 85 mL/min (>60); Est Glom Filt Rate - Afr Amer 102 mL/min (>60); Globulin 3.8 g/dL (2.2-4.2); Glucose 96 mg/dL (74-106); Potassium 3.8 mmol/L (3.5-5.1); Protein, Total 7.7 g/dL (6.4-8.2); Sodium Level 137 mmol/L (136-145); Thyroid Stim Hormone (TSH) 1.18 uIU/mL (0.358-3.74)
[2021-10-09 08:21] LABS: PTHIN 26.5 pg/mL (18.4-80.1)
== END | disposition home or self-care (01) ==
LOC: BIMLAB 11:36
PROVIDERS: PCP Family Medicine; Visit Provider Internal Medicine Endocrinology, Diabetes & Metabolism
DX: M81.0 Age-related osteoporosis without current pathological fracture (principal); E55.9 Vitamin D deficiency, unspecified
CPT/HCPCS: 36415; 80053; 82306; 83970; 84443

== ENCOUNTER → 2021-11-15 | Outpatient (CLI) | payer OTHER, SELFPAY ==
[2021-11-15 12:13] VITALS: BP 140/71; PULSE 89; RESP 16; TEMP 36.3; O2SAT 98; BMI 25.0
[2021-11-15] MEDS: 0.9% NaCl Peripheral Flush Adult/Peds IV (12:39)
[2021-11-15] MEDS: 0.9% NaCl IVPB Med Flush (250 mL) 15 ML IV (12:39)
[2021-11-15] MEDS: Zoledronic Acid 5 MG 100 ML 300 MG IV (12:39)
[2021-11-15 13:10] VITALS: BP 126/68; PULSE 79; RESP 16; TEMP 36.5
== END | disposition home or self-care (01) ==
LOC: MEDOUTP 12:04
PROVIDERS: PCP Family Medicine; Referring Provider Nurse Practitioner Family; Visit Provider Nurse Practitioner Family
DX: M81.0 Age-related osteoporosis without current pathological fracture (principal)
CPT/HCPCS: 96365; J7050; A4216; J3489

== ENCOUNTER 2022-05-30 12:09 | Inpatient (IN) | payer OTHER, SELFPAY ==
[2022-05-30 12:16] VITALS: BP 134/92; PULSE 92; RESP 18; TEMP 36; O2SAT 96; BMI 27.3
[2022-05-30] MEDS: Gabapentin 100 MG Capsule PO ×3 (13:50→21:05)
[2022-05-30] MEDS: Ibuprofen 400 MG Tablet PO ×2 (13:51→20:57)
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
--- NOTE | 2022-05-30 15:10 | NURSING ---
Customs Verifier Note; Activity Asset: Complete Maddy is independent in her choice of daily activities. Maddy enjoys reading, watching tv, spending time w/family and grandchildren. Her will visit daily and will take her off unit to go outside if weather is nice. She did state she enjoys bingo and would like to attend when we have it scheduled.
--- NOTE | 2022-05-30 15:48 | CASEMGMT ---
Social Work Met with patient to complete initial assessment. Introduced self and role. Discussed code status and MOLST form. Pt confirmed full code. MOLST placed in Dr folder. Pt wishes to complete advanced directives. SW to complete prior to DC as time allows. Educated to MMO CM insurance and continued stay is not guaranteed. Pt and expressed concerns about getting discharged home too soon. Cautioned the insurance does not usually provide coverage for the entire NWB of 6 weeks. SW educated to appeal rights, and assistance with coordination of needs at DC. Pt/ appreciative. SW to continue to follow for DC planning. Nilsa Sheppard, EAR NOSE THROAT PHYSICIAN DIRECTOR OF MEDICAL SERVICES
--- NOTE | 2022-05-30 16:14 | CHAPLAIN ---
Type of Pastoral Visit _x__ Initial Visit ___ Follow-up Visit ___ On-call Visit ___ General Patient Visit ___ Spiritual Assessment ___ Family Conference ___ Bereavement ___ Rapid Response ___ Code Blue ___ Other (describe below) Pastoral Care Referral From _x__ Patient _x__ Family ___ Nurse ___ Physician ___ County Attorney ___ Telephone Engineer ___ Other (describe below) Sacrament/Intervention _x__ Active listening ___ Anointing ___ Yarsani ___ Bereavement ___ Communion _x__ Madai exploration ___ _x__ Life review _x__ Prayer ___ Reconciliation ___ Sacrament of Sick ___ Supportive presence ___ Wedding ___ Other (describe below) Pastoral Comments patient and spouse in room; spouse is known to this net developer programmer; review of life and offer of support; pt was given encouraging news by [facility] staff about her progress; pt does have emotional anxiety about riding in vehicles; pt and spouse have good support system; both are open to spiritual care support; will follow up with this patient as desired
[2022-05-30] MEDS: Arthritis Pain Compound 60 CLICK TUBE TOPICAL (17:16)
[2022-05-30] MEDS: Calcium Carb/Vitamin D 1 TABLET Tablet PO (17:16)
[2022-05-30] MEDS: Senna/Docusate Sodium 1 Tablet 2 TABLET PO (17:16)
[2022-05-30] MEDS: oxyCODONE 5 MG Tablet PO ×2 (17:17→20:58)
[2022-05-30] MEDS: Acetaminophen 325 MG Tablet 975 MG PO ×2 (17:17→23:19)
[2022-05-31] MEDS: oxyCODONE 5 MG Tablet PO ×3 (01:17→14:33)
[2022-05-31] MEDS: Ibuprofen 400 MG Tablet PO ×3 (06:58→20:40)
[2022-05-31] MEDS: Senna/Docusate Sodium 1 Tablet 2 TABLET PO ×2 (06:58→17:58)
[2022-05-31] MEDS: Cholecalciferol (Vit D3) 125 MCG CAPSULE (5,000 UNITS) PO (06:58)
[2022-05-31] MEDS: Polyethylene Glycol 3350 17 GM PACKET PO (06:59)
[2022-05-31] MEDS: Arthritis Pain Compound 60 CLICK TUBE TOPICAL ×2 (06:59→17:57)
[2022-05-31] MEDS: Acetaminophen 325 MG Tablet 975 MG PO ×4 (07:00→23:51)
[2022-05-31 07:53] LABS: Absolute Lymphocyte Count 2.11 X10^3/uL (0.83-4.51); Absolute Neutrophil Count 2.3 X10^3/uL (2.0-7.7); Basophil# 0.05 X10^3/uL; Eosinophil# 0.23 X10^3/uL; Eosinophils% 4.4 % (0-5); Hematocrit 39.2 % (37-47); Hemoglobin 12.5 g/dL (12.0-15.0); Lymphocyte # 2.11 X10^3/ul (0.83-4.51); Lymphocyte % 40.5 % (19-41); Mean Corp Hgb Conc 31.9 g/dL (32-36); Mean Corpuscular Hgb 27.8 pg (27.0-32.0); Mean Corpuscular Volume 87.1 fL (81-99); Mean Platelet Vol. 10.4 fl (6.2-12.0); Monocyte% 9.6 % (0-10); NRBC Flagged by Analyzer 0 % (0-5); Neutrophil % 44.1 % (47-70); Platelet Count 284 K/mm3 (150-450); RBC Distribution Width CV 13.3 % (11.6-14.6); RBC Distribution Width SD 41.8 fl (35.1-43.9); White Blood Count 5.2 K/mm3 (4.4-11.0)
--- NOTE | 2022-05-31 08:00 | NURSING ---
Pt was receiving Oxycodone 5-10mg at previous Hospital requesting to have same order her d/t increased pain. Dr. Cardozo updated received N.O. to increase Oxycodone 5-10mg. Order Read Back.
[2022-05-31 08:20] LABS: Anion Gap 5 (5-15); BUN 15 mg/dL (7-18); BUN/Creat Ratio 22.7 RATIO (10-20); Calcium,Total 9.2 mg/dL (8.5-10.1); Chloride 103 mmol/L (98-107); Creatinine, Serum 0.66 mg/dL (0.55-1.02); EST Glomerular Filtration Rate 95 mL/min (>60); Est Glom Filt Rate - Afr Amer 116 mL/min (>60); Estimated Creatinine Clearance 80.61 ml/min; Glucose 124 mg/dL (74-106); Sodium Level 135 mmol/L (136-145)
[2022-05-31] MEDS: Calcium Carb/Vitamin D 1 TABLET Tablet PO ×2 (08:26→17:56)
[2022-05-31] MEDS: Tuberculin,Purif.prot.deriv. 50 TU/ML Vial 0.1 ML ID (10:59)
[2022-05-31] MEDS: Gabapentin 100 MG Capsule PO ×2 (13:10→20:44)
--- NOTE | 2022-05-31 14:58 | NURSING ---
Pt not currently on Blood Thinner was taking Lovenox at previous hospital. Dr. Cardozo updated d/t pt not moving d/t pain. N.O. for Xarelto 10mg daily for 30 days. Order read back
[2022-05-31 15:55] VITALS: BP 118/64; PULSE 84; RESP 14; TEMP 36.6; O2SAT 90
[2022-05-31] MEDS: Rivaroxaban 10 MG Tablet PO (17:56)
[2022-06-01] MEDS: Polyethylene Glycol 3350 17 GM PACKET PO (05:49)
[2022-06-01] MEDS: Ibuprofen 400 MG Tablet PO ×3 (05:50→22:19)
[2022-06-01] MEDS: Gabapentin 100 MG Capsule PO ×3 (05:50→22:20)
[2022-06-01] MEDS: Senna/Docusate Sodium 1 Tablet 2 TABLET PO ×2 (05:50→17:13)
[2022-06-01] MEDS: Cholecalciferol (Vit D3) 125 MCG CAPSULE (5,000 UNITS) PO (05:51)
--- NOTE | 2022-06-01 05:56 | NURSING ---
Pt wishes to have arthritis compound cream applied after bathing.
--- NOTE | 2022-06-01 05:59 | NURSING ---
Unable to administer Tylenol at this time due to exceeding maximum dose.
[2022-06-01] MEDS: Acetaminophen 325 MG Tablet 975 MG PO ×4 (07:02→23:38)
[2022-06-01] MEDS: Calcium Carb/Vitamin D 1 TABLET Tablet PO ×2 (07:56→17:11)
[2022-06-01] MEDS: Arthritis Pain Compound 60 CLICK TUBE TOPICAL ×2 (10:26→17:11)
[2022-06-01] MEDS: MENTHOL 226.8 GM JAR 1 APPLIC TOPICAL (11:42)
[2022-06-01 15:04] VITALS: BP 127/65; PULSE 101; RESP 16; TEMP 36.6; O2SAT 99
[2022-06-01] MEDS: Rivaroxaban 10 MG Tablet PO (17:11)
[2022-06-01] MEDS: oxyCODONE 5 MG Tablet PO (23:36)
[2022-06-02] MEDS: Gabapentin 100 MG Capsule PO ×3 (06:31→21:12)
[2022-06-02] MEDS: Acetaminophen 325 MG Tablet 975 MG PO ×4 (06:34→23:35)
[2022-06-02] MEDS: Senna/Docusate Sodium 1 Tablet 2 TABLET PO ×2 (06:35→17:40)
[2022-06-02] MEDS: Ibuprofen 400 MG Tablet PO ×3 (06:35→21:13)
[2022-06-02] MEDS: Cholecalciferol (Vit D3) 125 MCG CAPSULE (5,000 UNITS) PO (06:36)
[2022-06-02] MEDS: Polyethylene Glycol 3350 17 GM PACKET PO (06:37)
[2022-06-02] MEDS: Arthritis Pain Compound 60 CLICK TUBE TOPICAL ×2 (06:37→17:41)
[2022-06-02] MEDS: oxyCODONE 5 MG Tablet PO ×3 (08:09→20:32)
[2022-06-02] MEDS: Calcium Carb/Vitamin D 1 TABLET Tablet PO ×2 (08:10→17:39)
--- NOTE | 2022-06-02 10:49 | NURSING ---
Resident provided with education on the COVID q9 Vaccine, she does not want to receive it.
[2022-06-02 14:59] VITALS: BP 121/72; PULSE 86; RESP 16; TEMP 36.7; O2SAT 95
[2022-06-02] MEDS: Rivaroxaban 10 MG Tablet PO (17:40)
[2022-06-02 20:00] VITALS: PULSE 80; RESP 16; O2SAT 97
[2022-06-03] MEDS: Gabapentin 100 MG Capsule PO ×3 (06:19→22:02)
[2022-06-03] MEDS: oxyCODONE 5 MG Tablet PO ×3 (06:19→18:10)
[2022-06-03] MEDS: Senna/Docusate Sodium 1 Tablet 2 TABLET PO (06:20)
[2022-06-03] MEDS: Polyethylene Glycol 3350 17 GM PACKET PO (06:20)
[2022-06-03] MEDS: Cholecalciferol (Vit D3) 125 MCG CAPSULE (5,000 UNITS) PO (06:21)
[2022-06-03] MEDS: Acetaminophen 325 MG Tablet 975 MG PO (06:21)
[2022-06-03] MEDS: Ibuprofen 400 MG Tablet PO ×2 (06:21→22:03)
--- NOTE | 2022-06-03 06:35 | NURSING ---
PATIENT REQUESTS ARTHRITIS CREAM AFTER I GET WASHED UP THIS MORNING
[2022-06-03] MEDS: Arthritis Pain Compound 60 CLICK TUBE TOPICAL ×2 (08:53→18:11)
[2022-06-03] MEDS: Calcium Carb/Vitamin D 1 TABLET Tablet PO ×2 (08:53→16:36)
--- NOTE | 2022-06-03 15:16 | CASEMGMT ---
Social Work Attempted to complete advanced directives but pt feeling ill and requested to complete at a later date. SW agreed. Nilsa Sheppard, ORGANIZATIONAL DEVELOPMENT SPECIALIST CORRECTIONAL SERGEANT
[2022-06-03 15:42] VITALS: BP 119/64; PULSE 79; RESP 16; TEMP 36.4; O2SAT 98
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
[2022-06-03] MEDS: Rivaroxaban 10 MG Tablet PO (16:36)
[2022-06-03] MEDS: Acetaminophen 500 MG Tablet 1000 MG PO (22:03)
[2022-06-03 22:14] VITALS: PULSE 76; RESP 14; O2SAT 96
[2022-06-04] MEDS: Gabapentin 100 MG Capsule PO ×3 (05:56→21:35)
[2022-06-04] MEDS: Cholecalciferol (Vit D3) 125 MCG CAPSULE (5,000 UNITS) PO (05:57)
[2022-06-04] MEDS: Ibuprofen 400 MG Tablet PO (05:57)
[2022-06-04] MEDS: Acetaminophen 500 MG Tablet 1000 MG PO ×3 (05:57→21:35)
[2022-06-04] MEDS: Calcium Carb/Vitamin D 1 TABLET Tablet PO ×2 (09:09→17:29)
[2022-06-04] MEDS: Arthritis Pain Compound 60 CLICK TUBE TOPICAL ×2 (09:12→17:30)
[2022-06-04] MEDS: oxyCODONE 5 MG Tablet PO ×3 (09:13→19:33)
--- NOTE | 2022-06-04 09:43 | CASEMGMT ---
Social Work IDT met with patient and for care plan meeting. Discussed patient's progress in PT/OT/SN. Educated to MMO CM insurance with NRD 06/04 and continued stay is not guaranteed with each review. Reiterated when insurance issues LCD, there is no requirement for notice, and can be discharged the next day. Offered therapy training. plans to schedule. SW answered many questions in regards to insurance coverage. Pt distressed over the potential lack of insurance coverage for ample LOS. SW validated feelings and offered assistance with DC plans. Educated to pricing and options for TCU private pay, SNF private pay and provided nonskilled CASINO CAGE SUPERVISOR list for assistance at home. SW offered for to provide FMLA paperwork if needed. Pt also expressed not feeling comfortable riding in w/c van to f/u appt yet, and does not want to pay for cot transport. Pt and electing to postpone f/u appt until a later date. SW to continue to follow for DC planning. Nilsa Sheppard, HOTEL MAID ORACLE ERP DEVELOPER
--- NOTE | 2022-06-04 10:25 | CASEMGMT ---
Social Work Completed HCPOA and LW with pt. Pt named as first HCPOA. Original and copy provided to pt. Copies placed on chart. Nilsa Sheppard, AUTOMATION MACHINE BUILDER CHARGE GANG WEIGHER
[2022-06-04 13:54] VITALS: PULSE 76; RESP 16; O2SAT 97
[2022-06-04 14:55] VITALS: BP 127/64; PULSE 72; RESP 16; TEMP 35.9; O2SAT 96
--- NOTE | 2022-06-04 15:06 | CHAPLAIN ---
Type of Pastoral Visit ___ Initial Visit _x__ Follow-up Visit ___ On-call Visit ___ General Patient Visit ___ Spiritual Assessment ___ Family Conference ___ Bereavement ___ Rapid Response ___ Code Blue ___ Other (describe below) Pastoral Care Referral From _x__ Patient ___ Family ___ Nurse ___ Physician ___ Gear Lapper ___ Nuclear Fuels Reclamation Engineer ___ Other (describe below) Sacrament/Intervention _x__ Active listening ___ Anointing ___ Bahai ___ Bereavement ___ Communion ___ Madai exploration ___ ___ Life review _x__ Prayer ___ Reconciliation ___ Sacrament of Sick _x__ Supportive presence ___ Wedding ___ Other (describe below) Pastoral Comments patient has many flower vases and cards in the room with show of great support; pt has had visitors stop in to see her as well; pt states that she sees some improvements and that therapy team states she is doing well; pt is encouraged by that progress and states that she is determined to make it happen; pt does speak at length about her insurance concerns and that they will cut her off before she is able to go home; pt asks for prayer about insurance worries and for her who has a busy season right now
[2022-06-04] MEDS: Rivaroxaban 10 MG Tablet PO (17:29)
[2022-06-05] MEDS: oxyCODONE 5 MG Tablet PO ×3 (04:39→21:38)
[2022-06-05] MEDS: Gabapentin 100 MG Capsule PO ×3 (04:40→21:38)
[2022-06-05] MEDS: Arthritis Pain Compound 60 CLICK TUBE TOPICAL ×2 (04:43→17:50)
[2022-06-05] MEDS: Cholecalciferol (Vit D3) 125 MCG CAPSULE (5,000 UNITS) PO (04:44)
[2022-06-05] MEDS: Acetaminophen 500 MG Tablet 1000 MG PO ×3 (04:44→21:40)
[2022-06-05] MEDS: Calcium Carb/Vitamin D 1 TABLET Tablet PO ×2 (08:56→17:49)
--- NOTE | 2022-06-05 08:56 | NURSING ---
Addendum entered by Zenaida Alonzo 06/05/22 11:27: Natalie returned adolfo from Dr. Rosario's office. Patient is to be WBAT with knee brace on. [place] [facility] [place]. Original Note: Voicemail left at Dr. 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
[2022-06-05 15:06] VITALS: BP 120/70; PULSE 83; RESP 14; TEMP 36.8; O2SAT 96
--- NOTE | 2022-06-05 15:56 | CASEMGMT ---
Social Work SW spoke with to update insurance approval with NRD 06/11, and insurance is requesting DC plans are in place. SW educated if insurance issues LCD 06/11, DC 06/14. replied, well we will figure it out when we get there. SW educated to insurance requesting DC plans at the time of the update. Encouraged to decide on DC plans with the ample time, until waiting for a DC date and having 3 days to plan. expressed understanding and stated pt will need a SNF if she is unable to return home at the time of DC issuance from insurance. SW offered to provide SNF list. will be visiting pt this evening and requested printed list given to pt. SW printed SNF list with 4 choices that are in network with pt's insurance in the surrounding [facility], along with a list of all [facility] facilities. SW met with pt and educated to insurance and SNF lists. Educated to pt can choose an OON SNF and see if pt has OON part B benefits or can pay privately for therapy, or choose an INN SNF for part B therapy coverage. SW encouraged to choose 3 SNFs and provide to this worker for referrals. Pt expressed understanding. BIMS () and PHQ-9 (09/30) completed for MDS assessment. SW explored positive responses. Pt moving slowly and feeling tired r/t injuries, and having some trouble with concentration with severe fatigue or pain. Pt reports overall in good mental state and staying optimistic for recovery. SW provided supportive listening and empahty. Offered supportive visits as needed throughout stay. SW to continue to follow. jemima Sheppard, PMO LEAD ROLLER STAKER
[2022-06-05] MEDS: Rivaroxaban 10 MG Tablet PO (17:49)
[2022-06-05] MEDS: Senna/Docusate Sodium 1 Tablet 2 TABLET PO (17:50)
[2022-06-05 22:00] VITALS: PULSE 75; RESP 14; O2SAT 98
[2022-06-06] MEDS: Gabapentin 100 MG Capsule PO ×3 (06:55→21:21)
[2022-06-06] MEDS: Cholecalciferol (Vit D3) 125 MCG CAPSULE (5,000 UNITS) PO (06:56)
[2022-06-06] MEDS: Acetaminophen 500 MG Tablet 1000 MG PO ×2 (06:56→21:21)
[2022-06-06] MEDS: Polyethylene Glycol 3350 17 GM PACKET PO (06:56)
[2022-06-06] MEDS: Senna/Docusate Sodium 1 Tablet 2 TABLET PO (06:56)
--- NOTE | 2022-06-06 09:18 | NURSING ---
Kiln Setter Note; MDS Complete
[2022-06-06] MEDS: Arthritis Pain Compound 60 CLICK TUBE TOPICAL (09:21)
[2022-06-06] MEDS: Lidocaine 5% Patch 3 PATCH TOPICAL (09:22)
[2022-06-06] MEDS: Calcium Carb/Vitamin D 1 TABLET Tablet PO ×2 (09:22→18:02)
[2022-06-06] MEDS: oxyCODONE 5 MG Tablet PO ×2 (09:26→20:42)
[2022-06-06] MEDS: Ibuprofen 600 MG Tablet PO (12:13)
[2022-06-06 16:00] VITALS: BP 125/60; PULSE 98; RESP 16; TEMP 36.7; O2SAT 98
[2022-06-06] MEDS: Rivaroxaban 10 MG Tablet PO (18:04)
[2022-06-07] MEDS: Senna/Docusate Sodium 1 Tablet 2 TABLET PO ×2 (05:48→18:53)
[2022-06-07] MEDS: Acetaminophen 500 MG Tablet 1000 MG PO ×3 (05:48→21:06)
[2022-06-07] MEDS: Cholecalciferol (Vit D3) 125 MCG CAPSULE (5,000 UNITS) PO (05:48)
[2022-06-07] MEDS: Lidocaine 5% Patch 3 PATCH TOPICAL (05:49)
[2022-06-07] MEDS: Gabapentin 100 MG Capsule PO ×3 (05:54→21:06)
[2022-06-07 08:04] LABS: Absolute Lymphocyte Count 2.13 X10^3/uL (0.83-4.51); Absolute Neutrophil Count 3.4 X10^3/uL (2.0-7.7); Basophil# 0.05 X10^3/uL; Basophil% 0.8 % (0-1); Eosinophil# 0.21 X10^3/uL; Eosinophils% 3.3 % (0-5); Hematocrit 37.6 % (37-47); Hemoglobin 12.3 g/dL (12.0-15.0); Lymphocyte # 2.13 X10^3/ul (0.83-4.51); Mean Corp Hgb Conc 32.7 g/dL (32-36); Mean Corpuscular Volume 85.6 fL (81-99); Mean Platelet Vol. 10.3 fl (6.2-12.0); NRBC Flagged by Analyzer 0 % (0-5); Neutrophil # 3.37 X10^3/uL (2.7-7.7); Neutrophil % 53.7 % (47-70); Platelet Count 400 K/mm3 (150-450); RBC Distribution Width CV 13.2 % (11.6-14.6); RBC Distribution Width SD 41.5 fl (35.1-43.9); Red Blood Count 4.39 M/mm3 (4.2-5.4); White Blood Count 6.3 K/mm3 (4.4-11.0)
[2022-06-07] MEDS: Calcium Carb/Vitamin D 1 TABLET Tablet PO ×2 (08:31→18:49)
[2022-06-07 08:37] LABS: Anion Gap 6 (5-15); BUN 12 mg/dL (7-18); BUN/Creat Ratio 20.9 RATIO (10-20); Chloride 105 mmol/L (98-107); Creatinine, Serum 0.57 mg/dL (0.55-1.02); EST Glomerular Filtration Rate 112 mL/min (>60); Est Glom Filt Rate - Afr Amer 136 mL/min (>60); Estimated Creatinine Clearance 93.34 ml/min; Glucose 100 mg/dL (74-106); Potassium 3.7 mmol/L (3.5-5.1); Sodium Level 139 mmol/L (136-145)
[2022-06-07] MEDS: oxyCODONE 5 MG Tablet PO ×2 (09:59→18:56)
[2022-06-07] MEDS: Tuberculin,Purif.prot.deriv. 50 TU/ML Vial 0.1 ML ID (10:00)
[2022-06-07 14:22] VITALS: BP 136/55; PULSE 88; RESP 16; TEMP 36.1; O2SAT 97
[2022-06-07] MEDS: Rivaroxaban 10 MG Tablet PO (18:50)
[2022-06-07] MEDS: Menthol/Lanolin/Calamine/Znox 113 GM Tube 1 APPLIC TOPICAL (21:05)
[2022-06-07 21:30] VITALS: BP 103/60; PULSE 76; RESP 15; TEMP 36.2; O2SAT 93
[2022-06-08] MEDS: Cholecalciferol (Vit D3) 125 MCG CAPSULE (5,000 UNITS) PO (05:26)
[2022-06-08] MEDS: Senna/Docusate Sodium 1 Tablet 2 TABLET PO (05:26)
[2022-06-08] MEDS: Acetaminophen 500 MG Tablet 1000 MG PO ×3 (05:26→21:25)
[2022-06-08] MEDS: Gabapentin 100 MG Capsule PO ×3 (05:26→21:24)
[2022-06-08] MEDS: Polyethylene Glycol 3350 17 GM PACKET PO (05:27)
[2022-06-08 05:38] VITALS: BP 124/74; PULSE 81; RESP 18; TEMP 36.2; O2SAT 99
[2022-06-08 06:13] LABS: Anion Gap 6 (5-15); BUN 13 mg/dL (7-18); BUN/Creat Ratio 20.6 RATIO (10-20); Calcium,Total 9.1 mg/dL (8.5-10.1); Chloride 106 mmol/L (98-107); Creatinine, Serum 0.63 mg/dL (0.55-1.02); EST Glomerular Filtration Rate 101 mL/min (>60); Est Glom Filt Rate - Afr Amer 122 mL/min (>60); Estimated Creatinine Clearance 84.45 ml/min; Glucose 101 mg/dL (74-106); Potassium 4.1 mmol/L (3.5-5.1); Sodium Level 140 mmol/L (136-145)
[2022-06-08] MEDS: Calcium Carb/Vitamin D 1 TABLET Tablet PO ×2 (09:16→18:14)
[2022-06-08] MEDS: Arthritis Pain Compound 60 CLICK TUBE TOPICAL ×2 (09:17→18:15)
[2022-06-08] MEDS: Menthol/Lanolin/Calamine/Znox 113 GM Tube 1 APPLIC TOPICAL ×2 (09:18→18:19)
[2022-06-08 09:55] VITALS: PULSE 80; RESP 16
[2022-06-08 16:00] VITALS: BP 122/72; PULSE 94; RESP 18; TEMP 35.6; O2SAT 98
[2022-06-08] MEDS: Rivaroxaban 10 MG Tablet PO (18:15)
[2022-06-08] MEDS: Ibuprofen 600 MG Tablet PO (21:24)
[2022-06-09] MEDS: Menthol/Lanolin/Calamine/Znox 113 GM Tube 1 APPLIC TOPICAL ×2 (05:29→17:58)
[2022-06-09] MEDS: Acetaminophen 500 MG Tablet 1000 MG PO ×2 (05:30→22:03)
[2022-06-09] MEDS: Cholecalciferol (Vit D3) 125 MCG CAPSULE (5,000 UNITS) PO (05:30)
[2022-06-09] MEDS: Gabapentin 100 MG Capsule PO ×3 (05:30→22:01)
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
[2022-06-09] MEDS: Calcium Carb/Vitamin D 1 TABLET Tablet PO ×2 (07:41→17:57)
[2022-06-09] MEDS: oxyCODONE 5 MG Tablet PO ×2 (08:56→19:03)
--- NOTE | 2022-06-09 11:23 | NURSING ---
X-ray able to send pt's x-ray of Knee Electronically to Dr. Noriega.
[2022-06-09] MEDS: Ibuprofen 600 MG Tablet PO (12:25)
[2022-06-09 16:00] VITALS: BP 108/66; PULSE 84; RESP 20; TEMP 36; O2SAT 97
--- NOTE | 2022-06-09 16:46 | CASEMGMT ---
Social Work SW followed up with on SNF choices. stated pt has list in her room. SW spoke with pt. Pt questioned about payment at SNF. SW reeducated to OOP cost for room and board and insurance coverage for therapy, if [facility] SNF. Pt stated she will just go home then and make it work. Pt expressed the progress she is making and advocating for insurance to allow enough time for recovery to DC straight home. Pt's goals are to be mod I for bed mobility, transfers, and toileting tasks so can work during the day and pt will be fine. Pt inquired about appeal rights. SW educated to rights. Pt states she plans on appealing. SW inquired about DME needs at home: BSC, shower chair, half bed rail, and FWW. SW to coordinate skilled C PT/OT/SN/SINGH. Pt appreciative. SW to continue to follow. Nilsa Sheppard, PRINT LINE SUPERVISOR MEDICAL DIRECTOR/HEAD TEAM PHYSICIAN
[2022-06-09] MEDS: Arthritis Pain Compound 60 CLICK TUBE TOPICAL (17:57)
[2022-06-09] MEDS: Rivaroxaban 10 MG Tablet PO (17:57)
[2022-06-09] MEDS: Senna/Docusate Sodium 1 Tablet 2 TABLET PO (17:59)
[2022-06-09 22:20] VITALS: PULSE 73; RESP 18; O2SAT 99
[2022-06-10] MEDS: Menthol/Lanolin/Calamine/Znox 113 GM Tube 1 APPLIC TOPICAL ×2 (05:59→18:28)
[2022-06-10] MEDS: Gabapentin 100 MG Capsule PO ×3 (05:59→21:21)
[2022-06-10] MEDS: oxyCODONE 5 MG Tablet PO ×2 (06:09→12:33)
[2022-06-10] MEDS: Cholecalciferol (Vit D3) 125 MCG CAPSULE (5,000 UNITS) PO (06:10)
[2022-06-10] MEDS: Acetaminophen 500 MG Tablet 1000 MG PO ×3 (06:10→21:21)
[2022-06-10] MEDS: Senna/Docusate Sodium 1 Tablet 2 TABLET PO (06:10)
--- NOTE | 2022-06-10 06:15 | NURSING ---
patient declines arthritis cream at this time, states will accept after getting washed up with therapy this AM
[2022-06-10] MEDS: Arthritis Pain Compound 60 CLICK TUBE TOPICAL ×2 (08:42→18:28)
[2022-06-10] MEDS: Calcium Carb/Vitamin D 1 TABLET Tablet PO ×2 (08:43→18:28)
[2022-06-10] MEDS: Lidocaine 5% Patch 3 PATCH TOPICAL (13:06)
[2022-06-10 14:13] VITALS: BMI 26.6
[2022-06-10 15:43] VITALS: BP 113/64; PULSE 79; RESP 14; TEMP 36.4; O2SAT 98
[2022-06-10] MEDS: Rivaroxaban 10 MG Tablet PO (18:27)
[2022-06-10 21:00] VITALS: PULSE 89; RESP 16; O2SAT 97
[2022-06-11] MEDS: Acetaminophen 500 MG Tablet 1000 MG PO ×2 (05:55→14:37)
[2022-06-11] MEDS: Gabapentin 100 MG Capsule PO ×3 (05:55→21:17)
[2022-06-11] MEDS: Cholecalciferol (Vit D3) 125 MCG CAPSULE (5,000 UNITS) PO (05:56)
[2022-06-11] MEDS: Calcium Carb/Vitamin D 1 TABLET Tablet PO ×2 (09:24→17:42)
[2022-06-11] MEDS: Lidocaine 5% Patch 3 PATCH TOPICAL (09:25)
[2022-06-11] MEDS: Arthritis Pain Compound 60 CLICK TUBE TOPICAL ×2 (09:25→17:40)
--- NOTE | 2022-06-11 09:33 | NURSING ---
Addendum entered by Isha Hawthorne 06/13/22 08:51: Call back from [employer] this AM, they said someone would be out Thursday morning at 11am to help with brace. Resident updated. Original Note: pt asked this nurse to call [employer] regarding Torso Brace under axillary is painful and needs it trimmed. No answer, left message. awaiting return call.
[2022-06-11] MEDS: oxyCODONE 5 MG Tablet PO ×2 (09:56→13:49)
[2022-06-11 14:06] VITALS: BP 114/69; PULSE 85; RESP 17; TEMP 36.6; O2SAT 98
[2022-06-11 14:40] VITALS: PULSE 91; RESP 16; O2SAT 97
--- NOTE | 2022-06-11 16:12 | CASEMGMT ---
Social Work Continued stay approved by insurance with [employer]D 06/17/22. Pt updated and encouraged to continue consideration of discharge plan as insurance indicates that continued stay may not be approved after next review. Pt deb. NIRMALA Herbert
[2022-06-11] MEDS: Rivaroxaban 10 MG Tablet PO (17:42)
[2022-06-11] MEDS: Menthol/Lanolin/Calamine/Znox 113 GM Tube 1 APPLIC TOPICAL (17:43)
[2022-06-11] MEDS: Ibuprofen 600 MG Tablet PO (21:17)
[2022-06-12] MEDS: Arthritis Pain Compound 60 CLICK TUBE TOPICAL ×2 (05:56→17:23)
[2022-06-12] MEDS: Menthol/Lanolin/Calamine/Znox 113 GM Tube 1 APPLIC TOPICAL ×2 (05:57→17:24)
[2022-06-12] MEDS: Gabapentin 100 MG Capsule PO ×3 (05:58→21:14)
[2022-06-12] MEDS: Cholecalciferol (Vit D3) 125 MCG CAPSULE (5,000 UNITS) PO (05:58)
--- NOTE | 2022-06-12 07:24 | MDS.RN ---
Information for the mds was obtained from review of the clinical record, interview of resident, staff, and direct observation of resident's care.
[2022-06-12] MEDS: Calcium Carb/Vitamin D 1 TABLET Tablet PO ×2 (07:56→17:20)
[2022-06-12] MEDS: Lidocaine 5% Patch 3 PATCH TOPICAL (07:59)
[2022-06-12] MEDS: oxyCODONE 5 MG Tablet PO ×2 (08:55→13:19)
[2022-06-12] MEDS: Acetaminophen 500 MG Tablet 1000 MG PO ×2 (13:20→21:16)
[2022-06-12 14:50] VITALS: BP 126/69; PULSE 89; RESP 18; TEMP 35.8; O2SAT 97
[2022-06-12] MEDS: Rivaroxaban 10 MG Tablet PO (17:20)
[2022-06-12] MEDS: Senna/Docusate Sodium 1 Tablet 2 TABLET PO (17:22)
[2022-06-12 21:00] VITALS: PULSE 84; RESP 18; O2SAT 97
--- NOTE | 2022-06-12 21:15 | NURSING ---
Patient tearful this HS stating due to being overstimulated by visitors, they just stay too long and it makes me feel so exhausted. 1:1 provided, feelings validated. Patient requests sign be place on room door requesting all visits be no longer than 30 minutes with as an exception. Sign posted per patient request. Patient expresses thanks. No distress observed or reported. Denies further requests. Call light in reach.
[2022-06-13] MEDS: Gabapentin 100 MG Capsule PO ×2 (05:49→13:42)
[2022-06-13] MEDS: Ibuprofen 600 MG Tablet PO ×2 (05:50→11:59)
[2022-06-13] MEDS: Cholecalciferol (Vit D3) 125 MCG CAPSULE (5,000 UNITS) PO (05:51)
[2022-06-13] MEDS: Arthritis Pain Compound 60 CLICK TUBE TOPICAL ×2 (05:52→18:26)
[2022-06-13] MEDS: oxyCODONE 5 MG Tablet PO (08:39)
[2022-06-13] MEDS: Lidocaine 5% Patch 3 PATCH TOPICAL (08:40)
[2022-06-13] MEDS: Calcium Carb/Vitamin D 1 TABLET Tablet PO ×2 (08:41→18:25)
[2022-06-13 16:00] VITALS: BP 148/80; PULSE 92; RESP 16; TEMP 36.6; O2SAT 96
[2022-06-13] MEDS: Rivaroxaban 10 MG Tablet PO (18:25)
[2022-06-14] MEDS: oxyCODONE 5 MG Tablet PO ×2 (03:25→07:40)
[2022-06-14] MEDS: Acetaminophen 500 MG Tablet 1000 MG PO (06:11)
[2022-06-14] MEDS: Cholecalciferol (Vit D3) 125 MCG CAPSULE (5,000 UNITS) PO (06:12)
[2022-06-14 07:35] LABS: Absolute Lymphocyte Count 1.98 X10^3/uL (0.83-4.51); Absolute Neutrophil Count 3.5 X10^3/uL (2.0-7.7); Basophil# 0.05 X10^3/uL; Basophil% 0.8 % (0-1); Eosinophil# 0.18 X10^3/uL; Eosinophils% 2.9 % (0-5); Hematocrit 37.9 % (37-47); Hemoglobin 12.3 g/dL (12.0-15.0); Lymphocyte # 1.98 X10^3/ul (0.83-4.51); Lymphocyte % 32.2 % (19-41); Mean Corp Hgb Conc 32.5 g/dL (32-36); Mean Corpuscular Volume 86.3 fL (81-99); Mean Platelet Vol. 10.3 fl (6.2-12.0); Monocyte# 0.46 X10^3/uL; Monocyte% 7.5 % (0-10); NRBC Flagged by Analyzer 0 % (0-5); Neutrophil # 3.46 X10^3/uL (2.7-7.7); Neutrophil % 56.4 % (47-70); Platelet Count 369 K/mm3 (150-450); RBC Distribution Width CV 13.2 % (11.6-14.6); RBC Distribution Width SD 41.3 fl (35.1-43.9); Red Blood Count 4.39 M/mm3 (4.2-5.4); White Blood Count 6.1 K/mm3 (4.4-11.0)
[2022-06-14] MEDS: Calcium Carb/Vitamin D 1 TABLET Tablet PO ×2 (07:41→17:22)
[2022-06-14 07:48] LABS: Anion Gap 8 (5-15); BUN 11 mg/dL (7-18); BUN/Creat Ratio 19.1 RATIO (10-20); Calcium,Total 8.9 mg/dL (8.5-10.1); Chloride 106 mmol/L (98-107); Creatinine, Serum 0.58 mg/dL (0.55-1.02); EST Glomerular Filtration Rate 112 mL/min (>60); Est Glom Filt Rate - Afr Amer 135 mL/min (>60); Estimated Creatinine Clearance 91.73 ml/min; Glucose 108 mg/dL (74-106); Potassium 3.9 mmol/L (3.5-5.1); Sodium Level 140 mmol/L (136-145)
[2022-06-14] MEDS: Lidocaine 5% Patch 3 PATCH TOPICAL (09:35)
[2022-06-14] MEDS: Arthritis Pain Compound 60 CLICK TUBE TOPICAL ×2 (09:37→17:23)
[2022-06-14 16:00] VITALS: BP 119/72; PULSE 64; RESP 18; TEMP 36.2; O2SAT 99
[2022-06-14] MEDS: Ibuprofen 600 MG Tablet PO (17:22)
[2022-06-14] MEDS: Rivaroxaban 10 MG Tablet PO (17:23)
[2022-06-14 20:05] VITALS: PULSE 70; RESP 14; O2SAT 95
[2022-06-15] MEDS: Cholecalciferol (Vit D3) 125 MCG CAPSULE (5,000 UNITS) PO (05:18)
[2022-06-15] MEDS: Ibuprofen 600 MG Tablet PO ×3 (05:22→19:27)
[2022-06-15] MEDS: Lidocaine 5% Patch 3 PATCH TOPICAL (08:43)
[2022-06-15] MEDS: Calcium Carb/Vitamin D 1 TABLET Tablet PO ×2 (08:43→17:46)
[2022-06-15] MEDS: Arthritis Pain Compound 60 CLICK TUBE TOPICAL ×2 (08:43→17:58)
[2022-06-15 10:12] VITALS: PULSE 92; RESP 16; O2SAT 98
[2022-06-15 16:00] VITALS: BP 125/60; PULSE 75; RESP 17; TEMP 36.7; O2SAT 96
[2022-06-15] MEDS: Rivaroxaban 10 MG Tablet PO (18:47)
[2022-06-15] MEDS: Acetaminophen 500 MG Tablet 1000 MG PO (21:37)
[2022-06-16] MEDS: Cholecalciferol (Vit D3) 125 MCG CAPSULE (5,000 UNITS) PO (05:32)
[2022-06-16] MEDS: Acetaminophen 500 MG Tablet 1000 MG PO ×2 (05:32→13:52)
[2022-06-16] MEDS: oxyCODONE 5 MG Tablet PO ×2 (06:10→10:47)
[2022-06-16] MEDS: Arthritis Pain Compound 60 CLICK TUBE TOPICAL ×2 (08:17→17:48)
[2022-06-16] MEDS: Lidocaine 5% Patch 3 PATCH TOPICAL (08:18)
[2022-06-16] MEDS: Calcium Carb/Vitamin D 1 TABLET Tablet PO ×2 (08:25→17:47)
[2022-06-16 14:16] VITALS: BP 103/59; PULSE 82; RESP 14; TEMP 36.5
[2022-06-16] MEDS: Rivaroxaban 10 MG Tablet PO (17:47)
[2022-06-16] MEDS: Ibuprofen 600 MG Tablet PO (17:54)
[2022-06-16 21:35] VITALS: PULSE 76; RESP 18; O2SAT 96
[2022-06-17] MEDS: Arthritis Pain Compound 60 CLICK TUBE TOPICAL ×2 (06:16→18:27)
[2022-06-17] MEDS: Cholecalciferol (Vit D3) 125 MCG CAPSULE (5,000 UNITS) PO (06:17)
[2022-06-17] MEDS: Acetaminophen 500 MG Tablet 1000 MG PO ×3 (06:17→19:56)
[2022-06-17] MEDS: Calcium Carb/Vitamin D 1 TABLET Tablet PO ×2 (08:39→18:18)
[2022-06-17] MEDS: oxyCODONE 5 MG Tablet PO ×2 (08:43→12:45)
[2022-06-17] MEDS: Lidocaine 5% Patch 3 PATCH TOPICAL (08:45)
[2022-06-17 09:10] VITALS: BP 111/67; PULSE 74; RESP 18; TEMP 37; O2SAT 94
[2022-06-17 10:55] VITALS: BMI 26.0
[2022-06-17 14:14] VITALS: BP 115/64; PULSE 60; RESP 18; TEMP 36; O2SAT 95
--- NOTE | 2022-06-17 15:49 | CHAPLAIN ---
Type of Pastoral Visit ___ Initial Visit _x__ Follow-up Visit ___ On-call Visit ___ General Patient Visit ___ Spiritual Assessment ___ Family Conference ___ Bereavement ___ Rapid Response ___ Code Blue ___ Other (describe below) Pastoral Care Referral From _x__ Patient ___ Family ___ Nurse ___ Physician ___ Cad Application Support Specialist ___ Vice President Supply Chain ___ Other (describe below) Sacrament/Intervention _x__ Active listening ___ Anointing ___ Mormon ___ Bereavement ___ Communion ___ Madai exploration ___ ___ Life review ___ Prayer ___ Reconciliation ___ Sacrament of Sick ___ Supportive presence ___ Wedding ___ Other (describe below) Pastoral Comments brief follow up check in on patient who reports good improvement and a date for discharge that she is comfortable with and happy that was resolved; brother of patient is visiting her now; no specific needs identified at this time; pt continues to present an attitude of I can do this and I'll work hard
[2022-06-17] MEDS: Rivaroxaban 10 MG Tablet PO (18:20)
[2022-06-18] MEDS: Cholecalciferol (Vit D3) 125 MCG CAPSULE (5,000 UNITS) PO (05:00)
[2022-06-18] MEDS: Arthritis Pain Compound 60 CLICK TUBE TOPICAL ×2 (08:08→17:47)
[2022-06-18] MEDS: Calcium Carb/Vitamin D 1 TABLET Tablet PO ×2 (08:10→17:46)
[2022-06-18] MEDS: Lidocaine 5% Patch 3 PATCH TOPICAL (08:21)
[2022-06-18] MEDS: Ibuprofen 600 MG Tablet PO (08:25)
--- NOTE | 2022-06-18 12:02 | CASEMGMT ---
Social Work SW updated pt that insurance approved with [employer] 06/24. Plan is for pt to go to f/u appt 06/23, then determine DC timeframe home with . SW to continue to follow. Nilsa Sheppard MSW ENERGY TRADING ANALYST
[2022-06-18] MEDS: Acetaminophen 500 MG Tablet 1000 MG PO ×2 (12:04→20:11)
[2022-06-18] MEDS: oxyCODONE 5 MG Tablet PO (12:04)
[2022-06-18 16:00] VITALS: BP 121/68; PULSE 89; RESP 18; TEMP 36.6; O2SAT 97
[2022-06-18] MEDS: Rivaroxaban 10 MG Tablet PO (17:46)
[2022-06-18 22:56] VITALS: PULSE 72; RESP 18; O2SAT 98
[2022-06-19] MEDS: Cholecalciferol (Vit D3) 125 MCG CAPSULE (5,000 UNITS) PO (05:14)
[2022-06-19] MEDS: Lidocaine 5% Patch 3 PATCH TOPICAL (08:28)
[2022-06-19] MEDS: Arthritis Pain Compound 60 CLICK TUBE TOPICAL ×2 (08:30→16:52)
[2022-06-19] MEDS: Calcium Carb/Vitamin D 1 TABLET Tablet PO ×2 (08:30→16:51)
[2022-06-19] MEDS: Menthol/Lanolin/Calamine/Znox 113 GM Tube 1 APPLIC TOPICAL (08:36)
[2022-06-19] MEDS: oxyCODONE 5 MG Tablet PO (08:40)
[2022-06-19] MEDS: Ibuprofen 600 MG Tablet PO (13:58)
[2022-06-19 15:51] VITALS: BP 105/61; PULSE 89; RESP 17; TEMP 36.3; O2SAT 98
[2022-06-19] MEDS: Rivaroxaban 10 MG Tablet PO (16:51)
[2022-06-19] MEDS: Acetaminophen 500 MG Tablet 1000 MG PO (19:45)
[2022-06-20] MEDS: Arthritis Pain Compound 60 CLICK TUBE TOPICAL ×2 (06:44→18:09)
[2022-06-20] MEDS: Acetaminophen 500 MG Tablet 1000 MG PO ×2 (06:44→14:32)
[2022-06-20] MEDS: Cholecalciferol (Vit D3) 125 MCG CAPSULE (5,000 UNITS) PO (06:44)
[2022-06-20] MEDS: Calcium Carb/Vitamin D 1 TABLET Tablet PO ×2 (08:01→18:08)
[2022-06-20] MEDS: Lidocaine 5% Patch 3 PATCH TOPICAL (08:01)
[2022-06-20] MEDS: oxyCODONE 5 MG Tablet PO (08:44)
[2022-06-20] MEDS: Ibuprofen 600 MG Tablet PO (11:41)
[2022-06-20 15:58] VITALS: BP 110/60; PULSE 82; RESP 22; TEMP 36; O2SAT 94
--- NOTE | 2022-06-20 16:09 | NURSING ---
pt prefers to take motrin and would like tylenol changed to PRN instead of scheduled. dr moreno updated. orders entered.
[2022-06-20] MEDS: Rivaroxaban 10 MG Tablet PO (18:08)
[2022-06-20 20:35] VITALS: PULSE 89; RESP 16
[2022-06-21 05:47] LABS: Absolute Lymphocyte Count 2.61 X10^3/uL (0.83-4.51); Absolute Neutrophil Count 1.7 X10^3/uL (2.0-7.7); Basophil# 0.04 X10^3/uL; Basophil% 0.8 % (0-1); Hematocrit 38.4 % (37-47); Hemoglobin 12.3 g/dL (12.0-15.0); Lymphocyte # 2.61 X10^3/ul (0.83-4.51); Lymphocyte % 51.8 % (19-41); Mean Corpuscular Hgb 28.1 pg (27.0-32.0); Mean Corpuscular Volume 87.7 fL (81-99); Mean Platelet Vol. 10.7 fl (6.2-12.0); Monocyte# 0.47 X10^3/uL; Monocyte% 9.3 % (0-10); NRBC Flagged by Analyzer 0 % (0-5); Neutrophil # 1.71 X10^3/uL (2.7-7.7); Neutrophil % 33.9 % (47-70); Platelet Count 263 K/mm3 (150-450); RBC Distribution Width CV 13.4 % (11.6-14.6); RBC Distribution Width SD 43.3 fl (35.1-43.9); Red Blood Count 4.38 M/mm3 (4.2-5.4)
[2022-06-21] MEDS: Cholecalciferol (Vit D3) 125 MCG CAPSULE (5,000 UNITS) PO (05:55)
[2022-06-21 06:18] LABS: Anion Gap 9 (5-15); BUN 13 mg/dL (7-18); BUN/Creat Ratio 20.7 RATIO (10-20); Calcium,Total 9.1 mg/dL (8.5-10.1); Chloride 107 mmol/L (98-107); Creatinine, Serum 0.63 mg/dL (0.55-1.02); EST Glomerular Filtration Rate 101 mL/min (>60); Est Glom Filt Rate - Afr Amer 122 mL/min (>60); Estimated Creatinine Clearance 84.45 ml/min; Glucose 91 mg/dL (74-106); Potassium 3.8 mmol/L (3.5-5.1); Sodium Level 141 mmol/L (136-145)
[2022-06-21] MEDS: Lidocaine 5% Patch 3 PATCH TOPICAL (08:48)
[2022-06-21] MEDS: Arthritis Pain Compound 60 CLICK TUBE TOPICAL ×2 (08:49→18:13)
[2022-06-21] MEDS: Calcium Carb/Vitamin D 1 TABLET Tablet PO ×2 (08:49→18:09)
[2022-06-21] MEDS: oxyCODONE 5 MG Tablet PO ×2 (09:59→18:12)
[2022-06-21 16:00] VITALS: BP 142/79; PULSE 98; RESP 14; TEMP 36; O2SAT 96
[2022-06-21] MEDS: Ibuprofen 600 MG Tablet PO (16:15)
[2022-06-21] MEDS: Rivaroxaban 10 MG Tablet PO (18:08)
[2022-06-22] MEDS: Cholecalciferol (Vit D3) 125 MCG CAPSULE (5,000 UNITS) PO (06:45)
--- NOTE | 2022-06-22 06:54 | NURSING ---
Pt requesting compound arthritis cream be applied after bathing,
[2022-06-22] MEDS: Ibuprofen 600 MG Tablet PO ×2 (09:23→17:02)
[2022-06-22] MEDS: Calcium Carb/Vitamin D 1 TABLET Tablet PO ×2 (09:24→16:35)
[2022-06-22] MEDS: Lidocaine 5% Patch 3 PATCH TOPICAL (09:25)
[2022-06-22] MEDS: Arthritis Pain Compound 60 CLICK TUBE TOPICAL ×2 (09:27→16:44)
[2022-06-22 15:02] VITALS: BP 116/79; PULSE 86; RESP 16; TEMP 36.4; O2SAT 97
[2022-06-22] MEDS: Rivaroxaban 10 MG Tablet PO (16:42)
--- NOTE | 2022-06-23 03:45 | NURSING ---
Pt requests Senna-S and Miralax be changed from scheduled to PRN. Telephone order received per Dr. Cardozo and read back.
[2022-06-23] MEDS: Cholecalciferol (Vit D3) 125 MCG CAPSULE (5,000 UNITS) PO (05:32)
--- NOTE | 2022-06-23 05:35 | NURSING ---
Arthritis cream to be applied after bathing.
[2022-06-23] MEDS: Ibuprofen 600 MG Tablet PO ×2 (06:31→16:30)
[2022-06-23] MEDS: Arthritis Pain Compound 60 CLICK TUBE TOPICAL ×2 (07:50→17:52)
[2022-06-23] MEDS: Calcium Carb/Vitamin D 1 TABLET Tablet PO ×2 (07:50→17:50)
[2022-06-23] MEDS: Lidocaine 5% Patch 3 PATCH TOPICAL (07:51)
[2022-06-23] MEDS: oxyCODONE 5 MG Tablet PO ×2 (11:30→17:52)
--- NOTE | 2022-06-23 11:37 | NURSING ---
pt off unit to appts in [facility]. medicated with Oxyir before leaving, pt did take motrin along just in case she needs while out.
[2022-06-23] MEDS: Rivaroxaban 10 MG Tablet PO (17:50)
--- NOTE | 2022-06-23 17:55 | NURSING ---
Addendum entered by Aida Price 06/23/22 18:04: orders for therapy given to PT/OT Original Note: pt returned from dr martínez, new order to keep TLSO brace on when upright, sitting & OOB. TLSO brace off when sleeping. F/y in 1 month with xray.
[2022-06-23 18:00] VITALS: BP 128/67; PULSE 88; RESP 18; TEMP 36.3; O2SAT 99
[2022-06-23 20:00] VITALS: PULSE 77; RESP 16; O2SAT 97
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
[2022-06-24] MEDS: Lidocaine 5% Patch 3 PATCH TOPICAL (08:20)
[2022-06-24] MEDS: Calcium Carb/Vitamin D 1 TABLET Tablet PO ×2 (08:20→18:02)
[2022-06-24] MEDS: Cholecalciferol (Vit D3) 125 MCG CAPSULE (5,000 UNITS) PO (08:20)
[2022-06-24] MEDS: Arthritis Pain Compound 60 CLICK TUBE TOPICAL ×2 (08:22→22:01)
[2022-06-24] MEDS: Ibuprofen 600 MG Tablet PO (08:26)
[2022-06-24 11:19] VITALS: BMI 26.3
[2022-06-24] MEDS: oxyCODONE 5 MG Tablet PO (12:24)
[2022-06-24 13:49] VITALS: BP 158/91; PULSE 101; RESP 16; TEMP 36.2; O2SAT 98
--- NOTE | 2022-06-24 17:03 | CASEMGMT ---
Social Work Pt requesting to DC. SW spoke with pt and agreeable to DC 06/27. Pt states already purchased all needed DME. Pt agreeable to C PT/OT/SN/SINGH. SW provided printed list of skilled HHC choices with quality and resource data via [employer]. to transport. Plan: DC home with 06/27, [facility] PT/OT/SN/SINGH RACHELLE SouzaW
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
[2022-06-25] MEDS: Ibuprofen 600 MG Tablet PO ×2 (02:07→17:41)
[2022-06-25] MEDS: Cholecalciferol (Vit D3) 125 MCG CAPSULE (5,000 UNITS) PO (07:48)
[2022-06-25] MEDS: Arthritis Pain Compound 60 CLICK TUBE TOPICAL ×2 (07:48→20:52)
[2022-06-25] MEDS: Lidocaine 5% Patch 3 PATCH TOPICAL (07:48)
[2022-06-25] MEDS: Calcium Carb/Vitamin D 1 TABLET Tablet PO ×2 (07:49→16:07)
[2022-06-25] MEDS: oxyCODONE 5 MG Tablet PO (09:26)
--- NOTE | 2022-06-25 09:40 | NS ---
Provided copy of daily specials/first choice menu w/ instructions on how to order. Res appreciative of increased choices.
[2022-06-25 14:22] VITALS: BP 107/61; PULSE 77; RESP 18; TEMP 36.6; O2SAT 97
--- NOTE | 2022-06-25 14:48 | CHAPLAIN ---
Type of Pastoral Visit ___ Initial Visit _x__ Follow-up Visit ___ On-call Visit ___ General Patient Visit ___ Spiritual Assessment ___ Family Conference ___ Bereavement ___ Rapid Response ___ Code Blue ___ Other (describe below) Pastoral Care Referral From _x__ Patient ___ Family ___ Nurse ___ Physician ___ Data Sme ___ Farm Machinery Assembler ___ Other (describe below) Sacrament/Intervention _x__ Active listening ___ Anointing ___ Shinto ___ Bereavement ___ Communion ___ Madai exploration ___ ___ Life review ___ Prayer ___ Reconciliation ___ Sacrament of Sick ___ Supportive presence ___ Wedding ___ Other (describe below) Pastoral Comments brief greeting to patient who reports her updates and plans for going home on Thursday; pt is looking forward to being home; pt is encouraged by progress;
--- NOTE | 2022-06-25 16:00 | CASEMGMT ---
Social Work SW was notified by [facility] and [facility] that they are unable to provide home health services to pt. No response from [facility]. Phone call to [facility] and spoke with Erwin who states he did not receive referral. SW resent referral to [facility] and requested Erwin watch for referral and get back to MICHEAL with ability to accept pt. NIRMALA Ventura
[2022-06-25] MEDS: Acetaminophen 500 MG Tablet 1000 MG PO (20:57)
[2022-06-25 21:00] VITALS: PULSE 70; RESP 14; O2SAT 98
[2022-06-26 00:33] VITALS: BP 135/78; PULSE 68; RESP 16; O2SAT 96
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
[2022-06-26] MEDS: Cholecalciferol (Vit D3) 125 MCG CAPSULE (5,000 UNITS) PO (07:53)
[2022-06-26] MEDS: Calcium Carb/Vitamin D 1 TABLET Tablet PO ×2 (07:53→17:05)
[2022-06-26] MEDS: Arthritis Pain Compound 60 CLICK TUBE TOPICAL ×2 (07:54→22:29)
[2022-06-26] MEDS: Lidocaine 5% Patch 3 PATCH TOPICAL (07:54)
[2022-06-26] MEDS: oxyCODONE 5 MG Tablet PO (07:55)
--- NOTE | 2022-06-26 10:32 | CASEMGMT ---
Addendum entered by Nilsa Sheppard 06/26/22 15:15: [facility] attempted to contact the insurance company, but the website was currently down. However, per the information that the insurance did provide, it appears the pt will have a $90/copay until the deductible is met. MIC[facility]AL contacted [facility] to get pricing. Spoke with Herlinda at [facility] and received pricing - insurance will cover 50% after the OOP cost is met which is about $9,100. [facility] will provide package pricing at $125 per eval, $95 per session. SW spoke with pt about pricing for both. Pt states she does not want to pay that cost until she is more mobile and will 'really' need the therapy. Pt will follow [facility]. SW canceled order for [facility]. Addendum entered by Nilsa Sheppard 06/26/22 14:03: All [facility] agencies unable to accept pt. MICHEAL placed several other [facility] referrals. Phoned referral to [facility]. Original Note: Social Work [place] [facility] is unable to accept pt d/t insurance. MICHEAL updated pt and requested additional agencies. Pt provided [facility], [facility], and [facility]. Referrals made via [facility]. RACHELLE Souza
[2022-06-26] MEDS: Ibuprofen 600 MG Tablet PO (13:50)
[2022-06-26 14:15] VITALS: BP 116/56; PULSE 79; RESP 16; TEMP 36.2; O2SAT 95
--- NOTE | 2022-06-26 15:30 | CASEMGMT ---
Social Work BIMS () and PHQ-9 (06/30) completed for MDS assessment. Nilsa Sheppard MSW REFLECTOR DRILLER AND DEBURRER
[2022-06-26 21:00] VITALS: PULSE 78; RESP 16; O2SAT 95
[2022-06-26] MEDS: Acetaminophen 500 MG Tablet 1000 MG PO (22:33)
[2022-06-27] MEDS: Lidocaine 5% Patch 3 PATCH TOPICAL (08:57)
[2022-06-27] MEDS: Calcium Carb/Vitamin D 1 TABLET Tablet PO (08:57)
[2022-06-27] MEDS: Cholecalciferol (Vit D3) 125 MCG CAPSULE (5,000 UNITS) PO (08:57)
[2022-06-27] MEDS: Arthritis Pain Compound 60 CLICK TUBE TOPICAL (09:10)
== END 2022-06-27 10:15 | disposition home or self-care (01) | DRG 560 ==
PROVIDERS: Admitting Provider Family Medicine Geriatric Medicine; PCP Family Medicine; Visit Provider Family Medicine Geriatric Medicine
DX: S82.002D Unspecified fracture of left patella, subsequent encounter for closed fracture with routine healing (principal); I51.81 Takotsubo syndrome; G62.9 Polyneuropathy, unspecified; E55.9 Vitamin D deficiency, unspecified; I25.2 Old myocardial infarction; S32.038D Other fracture of third lumbar vertebra, subsequent encounter for fracture with routine healing; V43.92XD Unspecified car occupant injured in collision with other type car in traffic accident, subsequent encounter; S22.058D Other fracture of T5-T6 vertebra, subsequent encounter for fracture with routine healing; S22.068D Other fracture of T7-T8 thoracic vertebra, subsequent encounter for fracture with routine healing; Z79.899 Other long term (current) drug therapy; M81.0 Age-related osteoporosis without current pathological fracture; R42 Dizziness and giddiness
CPT/HCPCS: 36415; 73560; 80048; 85025; 87426; 93005; 97110; 97116; 97162; 97166; 97530; 97533; 97535; 97802

== ENCOUNTER → 2022-09-24 | Outpatient (CLI) | payer MEDICARE, OTHER, SELFPAY ==
[2022-09-24 13:38] LABS: Anion Gap 7 (5-15); BUN 15 mg/dL (7-18); BUN/Creat Ratio 21.3 RATIO (10-20); Calcium,Total 9.6 mg/dL (8.5-10.1); Chloride 107 mmol/L (98-107); EST Glomerular Filtration Rate 89 mL/min (>60); Est Glom Filt Rate - Afr Amer 108 mL/min (>60); Glucose 157 mg/dL (74-106); Magnesium 2.3 mg/dL (1.6-2.6); Potassium 3.6 mmol/L (3.5-5.1); Sodium Level 140 mmol/L (136-145)
== END | disposition home or self-care (01) ==
LOC: BFHLAB 09-25 07:45
PROVIDERS: PCP Family Medicine; Referring Provider Family Medicine; Visit Provider Family Medicine
DX: R00.2 Palpitations (principal)
CPT/HCPCS: 36415; 80048; 83735

== ENCOUNTER 2023-03-28 07:21 | Emergency (ER) | payer MEDICARE, OTHER, SELFPAY ==
[2023-03-28 07:22] VITALS: BP 116/79; PULSE 97; RESP 16; TEMP 36.1; O2SAT 98
--- NOTE | 2023-03-28 07:54 | EX.ED.DYSGE1 ---
HPI History of Present Illness Chief Complaint: General Illness Informant: patient and spouse/S.O. Narrative Narrative: 67-year-old female presenting to the emergency room with nausea and dry mouth. Patient states that on she was seen by primary care for an osteopathic adjustment and was noted to have a cough. Lung sounds are felt to be clear. She states that she had bronchitis last month that seem to resolve but then the cough returned. She notes the cough is significantly improved. Last night into today she has had nausea without vomiting. She notes dry mouth. She denies any actual vomiting or diarrhea. No reported fevers. She notes a headache which she states is from coughing. No vertiginous symptoms. No abdominal pain or bloating/swelling. No weight loss weight gain recently. [facility] Medical History Bronchitis History of non-ST elevation myocardial infarction (NSTEMI) (02/2017) Osteoporosis Palpitations Takotsubo cardiomyopathy (~02/2017) URI (upper respiratory infection) Home Medications calcium carbonate 500 mg-vitamin D3 5 mcg (200 unit) tablet (Oyster Shell Calcium-Vitamin D3) 1 tab PO BIDCM #0 tabs 06/24/22 [Rx Last Taken Unknown] cholecalciferol (vitamin D3) 125 mcg (5,000 unit) capsule 125 mcg PO DAILY@0800 #0 caps 06/24/22 [Rx Last Taken Unknown] ibuprofen 600 mg tablet 600 mg PO Q6H PRN PRN Pain Score 1-10 #0 tabs 06/24/22 [Rx Last Taken Unknown] lidocaine 5 % topical patch 3 patch topical DAILY@0800 30 days #90 ea 06/24/22 [Rx Last Taken Unknown] oxycodone 5 mg tablet 5 - 10 mg (1 - 2 x 5 mg) PO Q4H PRN Pain Score 4-10 7 days #42 tabs 06/24/22 [Rx Last Taken Unknown] ketorolac 10 mg tablet 10 mg PO TID PRN pain 5 days #15 tabs 03/28/23 [Rx Last Taken Unknown] ondansetron 4 mg disintegrating tablet 4 mg PO Q6H PRN PRN Nausea #15 tabs 03/28/23 [Rx Last Taken Unknown] Allergy/AdvReac Type Severity Reaction Status Date / Time potassium Allergy Anaphylaxis Verified 03/28/23 07:21 ampicillin AdvReac Vomiting Verified 03/28/23 07:21 codeine AdvReac Vomiting Verified 03/28/23 07:21 Family History Father Heart disease Mother Heart disease CHF valvular heart disease Brother Heart disease Myocardial infarction CAD (coronary artery disease) 2 brothers CABG, 3rd brother had stents Sister Heart disease CAD (coronary artery disease) stents Surgical History H/O carpal tunnel repair History of open reduction and internal fixation (ORIF) procedure History of salpingo-oophorectomy Hx of cataract extraction Status post left heart catheterization (02/17/17) Social History household members: spouse Smoking Status: Never smoker how long ago did patient quit smokin + years ago alcohol intake: never substance use type: does not use caffeine: No what type of physical activity do you participate in: none ROS ROS ED Constitutional Constitutional ED: Denies chills, fever(s) or weight loss Eyes Eyes: Denies change in vision or diplopia ENT ENT ED: Denies ear pain, rhinorrhea or sore throat Cardiovascular Cardiovascular: Denies chest pain, orthopnea, palpitations or racing heartbeat Respiratory/Chest Respiratory/Chest: Reports cough; Denies dyspnea or orthopnea Gastrointestinal Gastrointestinal: Reports nausea; Denies abdominal pain, diarrhea or vomiting Genitourinary Genitourinary ED: Denies dysuria, hematuria or urinary frequency Musculoskeletal Musculoskeletal: Reports back pain and neck pain; Denies arthralgias or myalgias Integumentary Denies abscess or rash Neurologic Neurologic: Reports headache(s); Denies paresthesias or weakness Psychiatric Psychiatric: Denies anxiety, depression, suicidal ideation or suicidal thoughts Endocrine Endocrinology: Denies polydipsia, polyphagia or polyuria Allergic/Immunologic Allergic/Immunologic ED: Denies mouth swelling, tongue swelling or urticaria EXAM Physical Exam Narrative Exam Narrative: Patient appears nauseated smelling a alcohol prep pad Const Vital Signs: 03/28/23 07:22 03/28/23 07:47 Temperature 97 F L Temperature Source Temporal Pulse Rate 97 Respiratory Rate 16 Respiratory Pattern Normal Blood Pressure 116/79 Blood Pressure Mean 91 Pulse Ox 98 Oxygen Delivery Method Room Air Positive well nourished and well developed General Appearance ED: well developed HEENT Reports normocephalic, head/scalp atraumatic and moist mucous membranes HEENT Narrative: No mouth lesions seen. No palatal petechiae oral pharyngeal erythema. Eyes PERRL and EOMs intact bilaterally Neck no lymphadenopathy, supple and no JVD Resp normal respiratory effort and clear to auscultation bilaterally Cardio regular rate, regular rhythm and no murmurs GI normal to inspection, nondistended, normoactive bowel sounds and non-tender Palpation: soft Back/Spine no CVA tenderness and normal ROM Extremity normal to inspection General Extremety ED: Negative for edema General Extremity: Negative for edema Neuro oriented x3 and CN's II-XII intact bilaterally Sensorium / Orientation: alert Motor Exam: strength 5/5 throughout Psych mental status grossly normal Mood & Affect: Negative for depressed or tearful Skin no rashes or lesions noted and no wounds MDM MDM MDM Narrative Medical decision making narrative: White count 3.2 hemoglobin 14.5 and a platelet count of 221. Sodium 137 with a potassium of 3.4. Glucose 133. Total bilirubin 1.1 but no obstructive PAD. Lipase normal at 81. Urine shows no overt infection. My independent interpretation of the chest x-ray is no acute process. CT of the brain demonstrated no hemorrhage swelling or mass. Patient received IV fluids and Zofran and toradol. Patient's nausea is improved and Toradol is helping the headache. Patient does not wish COVID testing. At this point I am seeing a potassium of 3.4 which I do not think is causing clinical symptoms. White count 3.2 which she tells me is a chronic issue. I think that she probably has a viral illness at this point given the cough and the nausea. We can write for some Toradol and Zofran at home. Advise follow-up if not improving return if worsening. History & Record Review Discussion w/independent historian: Patient and Significant other Lab Data Attestation: I reviewed the patient's lab results. Labs: Laboratory Results - last 24 hr 03/28/23 03/28/23 08:15 09:15 WBC 3.2 L RBC 5.23 Hgb 14.5 Hct 45.0 MCV 86.0 MCH 27.7 MCHC 32.2 RDW Std Deviation 42.8 RDW Coeff of Jocelyn 13.7 Plt Count 221 MPV 10.1 Immature Gran % (Auto) 0.300 Neut % (Auto) 66.8 Lymph % (Auto) 23.8 [place] % (Auto) 7.9 Eos % (Auto) 0.6 Baso % (Auto) 0.6 Absolute Neuts (auto) 2.1 Absolute Lymphs (auto) 0.75 L Nucleated RBC % 0 Sodium 137 Potassium 3.4 L Chloride 105 Carbon Dioxide 29.0 Anion Gap 3 L BUN 9 Creatinine 0.67 Estim Creat Clear Calc 78.37 Est GFR (MDRD) Af Amer 114 Est GFR (MDRD) Non-Af 94 BUN/Creatinine Ratio 13.5 Glucose 133 H Calcium 8.8 Total Bilirubin 1.10 H Direct Bilirubin 0.19 AST 23 ALT 42 Alkaline Phosphatase 110 Total Protein 7.6 Albumin 3.5 Globulin 4.1 Lipase 41 Urine Color Yellow Urine Clarity Clear Urine pH 7.0 Ur Specific [place] 1.010 Urine Protein Negative Urine Glucose (UA) Normal Urine Ketones 15 H Urine Occult Blood 25 H Urine Nitrite Negative Urine Bilirubin Negative Urine Urobilinogen Normal Ur Leukocyte Esterase Negative Urine RBC 0-5 SEEN Urine WBC 0 SEEN Ur Squamous Epith Cells 0-5 SEEN Urine Bacteria 0 SEEN Urine Mucus 0 SEEN Radiography Diagnostic Testing: Clinical Impression(s) from Imaging Studies Chest X-Ray 03/28/23 08:24 IMPRESSION: No acute pulmonary process Electronically Signed: Mumtaz Wong MD at 9:07 EST , Brain CT 03/28/23 09:09 IMPRESSION: Normal unenhanced CT scan of the brain. Electronically Signed: Mumtaz Wong MD at 9:50 EST , Discharge Plan Triage Chief Complaint: General Illness ED Provider: Bernardo Malhotra Dx/Rx/DC Orders Clinical Impression: Cough, Headache, Nausea Instructions: ED Viral Syndrome (Adult) Prescriptions: New ketorolac 10 mg tablet 10 mg PO TID PRN (Reason: pain) 5 Days Qty: 15 0RF ondansetron [ondansetron] 4 mg tablet,disintegrating 4 mg PO Q6H PRN PRN (Reason: Nausea) Qty: 15 0RF No Action lidocaine 5 % Adhesive Patch,Medicated 3 patch topical DAILY@0800 30 Days Qty: 90 0RF Protocol: *Topical Application Instructions APPLICATION INSTRUCTIONS: Posterior neck, shoulder, chest. ibuprofen 600 mg Tablet 600 mg PO Q6H PRN PRN (Reason: Pain Score 1-10) Qty: 0 0RF cholecalciferol (vitamin D3) 125 mcg (5,000 unit) Capsule 125 mcg PO DAILY@0800 Qty: 0 0RF oxycodone 5 mg Tablet 5 - 10 mg PO Q4H PRN (Reason: Pain Score 4-10) 7 Days Qty: 42 0RF calcium carbonate-vitamin D3 [Oyster Shell Calcium-Vit D3] 500 mg-5 mcg (200 unit) Tablet 1 tab PO BIDCM Qty: 0 0RF Primary Care Provider: Abraham Hair Referrals: Abraham Hair DO [Primary Care Provider] - 3-5 Days if not improving Disposition Disposition: Home, Self Care
[2023-03-28] MEDS: Ondansetron 4 MG/2 ML Vial IV (08:16)
[2023-03-28] MEDS: 0.9% Normal Saline (1000mL) 1,000 ML 1000 ML IV (08:17)
[2023-03-28 08:18] VITALS: BMI 27.1
[2023-03-28 08:22] LABS: Absolute Lymphocyte Count 0.75 X10^3/uL (0.83-4.51); Absolute Neutrophil Count 2.1 X10^3/uL (2.0-7.7); Basophil# 0.02 X10^3/uL; Basophil% 0.6 % (0-1); Eosinophil# 0.02 X10^3/uL; Eosinophils% 0.6 % (0-5); Hemoglobin 14.5 g/dL (12.0-15.0); Lymphocyte # 0.75 X10^3/ul (0.83-4.51); Lymphocyte % 23.8 % (19-41); Mean Corp Hgb Conc 32.2 g/dL (32-36); Mean Corpuscular Hgb 27.7 pg (27.0-32.0); Mean Platelet Vol. 10.1 fl (6.2-12.0); Monocyte# 0.25 X10^3/uL; Monocyte% 7.9 % (0-10); NRBC Flagged by Analyzer 0 % (0-5); Neutrophil % 66.8 % (47-70); Platelet Count 221 K/mm3 (150-450); RBC Distribution Width CV 13.7 % (11.6-14.6); RBC Distribution Width SD 42.8 fl (35.1-43.9); Red Blood Count 5.23 M/mm3 (4.2-5.4); White Blood Count 3.2 K/mm3 (4.4-11.0)
--- NOTE | 2023-03-28 08:24 | RAD_ITS ---
STUDY: X-RAY CHEST REASON FOR EXAM: Female, 67 years old. cough TECHNIQUE: Single AP portable view of the chest. COMPARISON: 2017 FINDINGS: The lungs are clear and expanded. There is no demonstrated pleural abnormality. Normal size heart. Normal mediastinum and nelson. Normal visualized pulmonary arteries. Normal visualized aortic arch and descending thoracic aorta. Normal visualized thoracic spine. Normal visualized ribs, clavicles, and shoulders. There is no demonstrated abnormality of the visualized soft tissue structures of the upper abdomen. RAD/Chest 1 View (Portable) IMPRESSION: No acute pulmonary process Electronically Signed: Mumtaz Wong MD at 9:07 EST ,
[2023-03-28 08:37] LABS: AST(SGOT) 23 U/L (15-37); Alanine Aminotransfer ALT/SGPT 42 U/L (13-56); Albumin, Serum 3.5 g/dL (3.2-5.0); Alkaline Phosphatase 110 U/L (45-117); Anion Gap 3 (5-15); BUN 9 mg/dL (7-18); BUN/Creat Ratio 13.5 RATIO (10-20); Bilirubin, Direct 0.19 mg/dL (0.00-0.30); Calcium,Total 8.8 mg/dL (8.5-10.1); Chloride 105 mmol/L (98-107); Creatinine, Serum 0.67 mg/dL (0.55-1.02); EST Glomerular Filtration Rate 94 mL/min (>60); Est Glom Filt Rate - Afr Amer 114 mL/min (>60); Estimated Creatinine Clearance 78.37 ml/min; Globulin 4.1 g/dL (2.2-4.2); Glucose 133 mg/dL (74-106); Lipase 41 U/L (13-75); Potassium 3.4 mmol/L (3.5-5.1); Protein, Total 7.6 g/dL (6.4-8.2); Sodium Level 137 mmol/L (136-145)
--- NOTE | 2023-03-28 09:09 | CT_ITS ---
STUDY: CT BRAIN WITHOUT CONTRAST REASON FOR EXAM: Female, 67 years old. headache intractable nausea RADIATION DOSAGE (If Supplied By Facility): CTDIvol = ( 44.99 ) mGy, DLP = ( 796.11 ) mGycm TECHNIQUE: Transaxial CT imaging of the brain was performed without administration of intravenous contrast material. Individualized dose optimization techniques were used for this CT. COMPARISON: No relevant priors. FINDINGS: Normal soft tissue structures. Normal calvarium. Normal size ventricles and extra-axial spaces for the patient''s age. Normal white matter tracts of the cerebral hemispheres. Normal basal ganglia and thalami. Normal brainstem. Normal cerebellum. There is no intracranial hemorrhage. There are no findings of an acute ischemic infarction. Normal visualized paranasal sinuses. CT/Brain/Head without Contrast IMPRESSION: Normal unenhanced CT scan of the brain. Electronically Signed: Mumtaz Wong MD at 9:50 EST ,
[2023-03-28 09:21] LABS: Bacteria 0 SEEN /hpf (None Seen); Mucous, Urine 0 SEEN /hpf (<or=2+); White Blood Cells 0 SEEN /hpf (0-5)
[2023-03-28 09:48] LABS: Color, Urine Yellow (Yellow); Glucose, Dipstick Normal (Normal); Ketone-Dipstick 15 mg/dl (Negative); Leukocyte Esterase-Dipstick Negative /ul (Negative); Nitrite-Dipstick Negative (Negative); Occult Blood-Urine 25 /ul (Negative); Protein-Dipstick Negative (Negative); Urine Bilirubin Dipstick Negative (Negative); Urine Clarity Clear (Clear); Urine Urobilinogen Normal (Normal)
[2023-03-28 10:03] LABS: Red Blood Cells-Urine 0-5 SEEN /hpf (0-5); Squamous Epithelial Cells - UA 0-5 SEEN /hpf (5-10)
[2023-03-28] MEDS: Ketorolac 30 MG/ML Syringe IV (10:12)
[2023-03-28 11:21] VITALS: BP 138/78; PULSE 91; RESP 16; O2SAT 99
[2023-03-28 11:22] VITALS: BP 138/78; PULSE 97; RESP 16; O2SAT 99
== END 2023-03-28 11:24 | disposition home or self-care (01) ==
PROVIDERS: Emergency Provider Emergency Medicine; PCP Family Medicine; Visit Provider Emergency Medicine
DX: R05.9 Cough, unspecified (principal); R11.0 Nausea; R51.9 Headache, unspecified; I25.2 Old myocardial infarction
CPT/HCPCS: 70450; 71045; 80048; 80076; 81001; 83690; 85025; 96361; 96374; 96375; 99282; J7030; A4216; J2405

== ENCOUNTER → 2023-04-09 | Outpatient (CLI) | payer OTHER, SELFPAY ==
[2023-04-09 12:36] LABS: Absolute Lymphocyte Count 2.33 X10^3/uL (0.83-4.51); Absolute Neutrophil Count 3.6 X10^3/uL (2.0-7.7); Basophil# 0.04 X10^3/uL; Basophil% 0.6 % (0-1); Eosinophil# 0.16 X10^3/uL; Eosinophils% 2.3 % (0-5); Hematocrit 43.7 % (37-47); Hemoglobin 14.1 g/dL (12.0-15.0); Lymphocyte # 2.33 X10^3/ul (0.83-4.51); Lymphocyte % 33.9 % (19-41); Mean Corp Hgb Conc 32.3 g/dL (32-36); Mean Corpuscular Hgb 27.6 pg (27.0-32.0); Mean Corpuscular Volume 85.7 fL (81-99); Mean Platelet Vol. 11.2 fl (6.2-12.0); Monocyte# 0.71 X10^3/uL; Monocyte% 10.3 % (0-10); NRBC Flagged by Analyzer 0 % (0-5); Neutrophil # 3.61 X10^3/uL (2.7-7.7); Neutrophil % 52.6 % (47-70); Platelet Count 337 K/mm3 (150-450); RBC Distribution Width CV 13.4 % (11.6-14.6); RBC Distribution Width SD 41.6 fl (35.1-43.9); White Blood Count 6.9 K/mm3 (4.4-11.0)
[2023-04-09 12:43] LABS: Vitamin D,25 Hydroxy 76.7 ng/mL
[2023-04-09 12:46] LABS: AST(SGOT) 16 U/L (15-37); Alanine Aminotransfer ALT/SGPT 34 U/L (13-56); Albumin, Serum 3.5 g/dL (3.2-5.0); Alkaline Phosphatase 99 U/L (45-117); Anion Gap 8 (5-15); BUN 13 mg/dL (7-18); BUN/Creat Ratio 18.8 RATIO (10-20); Calcium,Total 9.4 mg/dL (8.5-10.1); Chloride 105 mmol/L (98-107); Creatinine, Serum 0.69 mg/dL (0.55-1.02); EST Glomerular Filtration Rate 90 mL/min (>60); Est Glom Filt Rate - Afr Amer 109 mL/min (>60); Globulin 3.6 g/dL (2.2-4.2); Glucose 97 mg/dL (74-106); Potassium 3.8 mmol/L (3.5-5.1); Protein, Total 7.1 g/dL (6.4-8.2); Sodium Level 140 mmol/L (136-145)
== END | disposition home or self-care (01) ==
LOC: BFHLAB 08:28
PROVIDERS: PCP Family Medicine; Visit Provider Family Medicine
DX: R53.83 Other fatigue (principal); M81.0 Age-related osteoporosis without current pathological fracture
CPT/HCPCS: 36415; 80053; 82306; 85025

== ENCOUNTER → 2023-11-03 | Outpatient (CLI) | payer OTHER, SELFPAY ==
--- NOTE | 2023-11-03 08:56 | BI_ITS ---
MAMMOGRAPHY - BILATERAL SCREENING REASON FOR EXAM: Female, 68 years old. Routine annual screening examination. PERTINENT HISTORY: Aunt with breast cancer. TECHNIQUE: Digital bilateral breast andre (3D mammographic acquisition) in the CC and MLO projections. 2-D mediolateral oblique (MLO) and craniocaudad (CC) views of both breasts were obtained. CAD: Full Field Digital Mammography with Computer Added Detection was performed. COMPARISON: Comparison is made with prior study dated September 13, 2014. FINDINGS: Breast Composition: The breasts are almost entirely fatty. There are no dominant masses or suspicious calcifications. No other significant abnormalities are identified. There has been no significant change since the prior study. BI/SCRN MAMM (CAD)W/ANDRE BILAT IMPRESSION: Stable bilateral screening mammogram. Yearly follow-up mammogram recommended. (A) ASSESSMENT CATEGORY: BIRADS Category 1: Negative. A letter regarding these results will be sent to the patient by the facility within 30 days. Approximately 10% of breast cancers are not detected by mammography. A normal mammogram should not delay biopsy of a clinically suspicious abnormality. [id number] Electronically Signed: Junior Plascencia MD at 9:57 EDT ,
== END | disposition home or self-care (01) ==
LOC: OPBI 08:53
PROVIDERS: PCP Family Medicine; Referring Provider Family Medicine; Visit Provider Family Medicine
DX: Z12.31 Encounter for screening mammogram for malignant neoplasm of breast (principal)
CPT/HCPCS: 77063; 77067

== ENCOUNTER → 2024-05-12 | Outpatient (CLI) | payer OTHER, MEDICARE, SELFPAY ==
[2024-05-12 12:21] LABS: Absolute Neutrophil Count 0.7 X10^3/uL (2.0-7.7); Basophil# 0.03 X10^3/uL; Eosinophil# 0.08 X10^3/uL; Eosinophils% 2.7 % (0-5); Hematocrit 45.9 % (37-47); Hemoglobin 14.9 g/dL (12.0-15.0); Lymphocyte % 58.4 % (19-41); Mean Corp Hgb Conc 32.5 g/dL (32-36); Mean Corpuscular Hgb 27.8 pg (27.0-32.0); Mean Corpuscular Volume 85.6 fL (81-99); Monocyte# 0.39 X10^3/uL; Monocyte% 13.4 % (0-10); NRBC Flagged by Analyzer 0 % (0-5); Neutrophil # 0.71 X10^3/uL (2.7-7.7); Neutrophil % 24.5 % (47-70); POSITIVE DIFFERENTIAL YES; Platelet Count 227 K/mm3 (150-450); RBC Distribution Width CV 13.2 % (11.6-14.6); RBC Distribution Width SD 41.5 fl (35.1-43.9); Red Blood Count 5.36 M/mm3 (4.2-5.4); White Blood Count 2.9 K/mm3 (4.4-11.0)
[2024-05-12 12:24] LABS: Differential Indicated SCAN CRITERIA MET
[2024-05-12 12:45] LABS: Differential Comment SCANNED
[2024-05-12 13:11] LABS: Vitamin B12 > 2000 pg/mL (211-911)
[2024-05-12 14:15] LABS: AST(SGOT) 21 U/L (15-37); Alanine Aminotransfer ALT/SGPT 24 U/L (13-56); Albumin, Serum 3.8 g/dL (3.2-5.0); Alkaline Phosphatase 101 U/L (45-117); Anion Gap 5 (5-15); BUN 10 mg/dL (7-18); BUN/Creat Ratio 15.1 RATIO (10-20); Calcium,Total 9.6 mg/dL (8.5-10.1); Chloride 104 mmol/L (98-107); Cholesterol 212 mg/dL (200); Creatinine, Serum 0.66 mg/dL (0.55-1.02); EST Glomerular Filtration Rate 95 mL/min (>60); Est Glom Filt Rate - Afr Amer 114 mL/min (>60); Estradiol < 11.0 pg/mL; Ferritin 75 ng/mL (8-252); Free T3 2.6 pg/mL (2.18-3.98); Globulin 3.9 g/dL (2.2-4.2); Glucose 95 mg/dL (74-106); High Density Lipoprotein 61 mg/dL; Iron 39 ug/dL (50-170); Iron Binding Capacity,Total 300 ug/dL (250-450); Magnesium 2.5 mg/dL (1.6-2.6); Potassium 3.7 mmol/L (3.5-5.1); Protein, Total 7.7 g/dL (6.4-8.2); Sodium Level 138 mmol/L (136-145); T4 Free Direct 1.02 ng/dL (0.76-1.46); Triglycerides 111 mg/dL; Uric Acid 2.9 mg/dL (2.6-6.0); Very Low Density Lipoprotein 22 mg/dL (5-40)
[2024-05-12 15:01] LABS: Hemoglobin A1c 5.2 % (3.8-5.6)
[2024-05-12 18:07] LABS: Ionized Calcium 1.33 mmol/L (1.09-1.30)
[2024-05-13 05:07] LABS: CRP, High Sensitivity 6.07 mg/L (0.00-3.00); HOMOCYSTEINE 6.7 umol/L (0.0-17.2); PROGESTERONE <0.1 ng/mL (.)
[2024-05-20 10:08] LABS: DHEA Sulfate 44.5 ug/dL (20.4-186.6); G6PD Quant Test 228 (127-427); Insulin Level 10.9 uIU/mL (2.6-24.9); Insulin Like Growth Factor 273 ng/mL (52-196); Red Blood Cell Count Test/G6PD 5.22 x10E6/uL (3.77-5.28); Sex Hormone-binding Globulin 55.9 nmol/L (17.3-125.0); Testosterone, % Free 2.76 % (0.50-2.80); Testosterone, Free 0.08 ng/dL (0.10-0.85); Testosterone, Total 3 ng/dL (3-67); Thyroglobulin Antibody < 1.0 IU/mL (0.0-0.9); Thyroid Peroxidase AB < 9 IU/mL (0-34)
== END | disposition home or self-care (01) ==
PROVIDERS: PCP Family Medicine; Visit Provider Family Medicine
DX: E80.6 Other disorders of bilirubin metabolism (principal); D64.9 Anemia, unspecified; E72.11 Homocystinuria; E78.5 Hyperlipidemia, unspecified; R73.01 Impaired fasting glucose; E27.9 Disorder of adrenal gland, unspecified; E83.42 Hypomagnesemia; M81.0 Age-related osteoporosis without current pathological fracture
CPT/HCPCS: 36415; 80053; 80061; 81291; 82306; 82330; 82533; 82607; 82627; 82670; 82728; 82746; 82955; 83036; 83090; 83525; 83540; 83550; 83695; 83735; 84144; 84270; 84305; 84402; 84403; 84439; 84443; 84481; 84482; 84550; 85025; 86141; 86376; 86800; 82626

== ENCOUNTER → 2024-07-28 | Outpatient (CLI) | payer OTHER, MEDICARE, SELFPAY ==
[2024-07-28 10:08] LABS: Ionized Calcium Order ORDER TUBE
[2024-07-28 12:54] LABS: Absolute Lymphocyte Count 1.94 X10^3/uL (0.83-4.51); Absolute Neutrophil Count 1.5 X10^3/uL (2.0-7.7); Basophil# 0.05 X10^3/uL; Basophil% 1.3 % (0-1); Eosinophil# 0.09 X10^3/uL; Eosinophils% 2.3 % (0-5); Hematocrit 42.4 % (37-47); Hemoglobin 14.3 g/dL (12.0-15.0); Lymphocyte # 1.94 X10^3/ul (0.83-4.51); Lymphocyte % 48.9 % (19-41); Mean Corp Hgb Conc 33.7 g/dL (32-36); Mean Corpuscular Hgb 28.6 pg (27.0-32.0); Mean Corpuscular Volume 84.8 fL (81-99); Mean Platelet Vol. 11.6 fl (6.2-12.0); Monocyte# 0.38 X10^3/uL; Monocyte% 9.6 % (0-10); NRBC Flagged by Analyzer 0 % (0-5); Neutrophil % 37.6 % (47-70); Platelet Count 239 K/mm3 (150-450); RBC Distribution Width CV 13.1 % (11.6-14.6); RBC Distribution Width SD 40.3 fl (35.1-43.9)
[2024-07-28 13:30] LABS: Hemoglobin A1c 5.5 % (<=5.6)
[2024-07-28 13:44] LABS: ALB/GLOB Ratio 1.5 RATIO (0.9-2.4); AST(SGOT) 21 U/L (<=31); Alanine Aminotransfer ALT/SGPT 18 U/L (<=34); Albumin, Serum 4.3 g/dL (3.4-4.8); Alkaline Phosphatase 103 U/L (35-104); Anion Gap 12 (5-15); BUN 14 mg/dL (4-19); BUN/Creat Ratio 20.4 RATIO (10-20); Calcium,Total 9.6 mg/dL (7.6-11.0); Carbon Dioxide 21.2 mmol/L (21.0-32.0); Chloride 106 mmol/L (98-108); Cholesterol 224 mg/dL (<=200); Creatinine, Serum 0.67 mg/dL (0.70-1.20); EST Glomerular Filtration Rate 96 (>60); Globulin 2.9 g/dL (2.2-4.2); Glucose 90 mg/dL (70-99); High Density Lipoprotein 51 mg/dL; Low Density Lipoprotein Calc. 153 mg/dL; Potassium 3.8 mmol/L (3.3-5.1); Protein, Total 7.2 g/dL (5.9-8.4); Sodium Level 139 mmol/L (133-145); Total Bilirubin 1.99 mg/dL (0.00-1.30); Triglycerides 100 mg/dL; Very Low Density Lipoprotein 20 mg/dL (5-40); cholesterol:hdl ratio screen 4.37
[2024-07-28 13:51] LABS: CRP < 3.00 mg/L (0.0-3.0); Estradiol 17.7 pg/mL; Free T3 3.6 pg/mL (2.18-3.98); Thyroid Stim Hormone (TSH) 0.951 uIU/mL (0.300-4.200); Vitamin D,25 Hydroxy 85.6 ng/mL (30-100)
[2024-07-28 15:22] LABS: Iron 114 ug/dL (50-170); Iron Binding Capacity,Total 295 ug/dL (250-450); Iron Binding Capacity,Unsat 181 ug/dL (228-428)
[2024-07-28 23:13] LABS: Ionized Calcium Order 1.25
[2024-07-29 08:08] LABS: PROGESTERONE 0.7 ng/mL (.)
== END | disposition home or self-care (01) ==
LOC: BFHLAB 09:07
PROVIDERS: PCP Family Medicine; Referring Provider Family Medicine; Visit Provider Family Medicine
DX: I25.10 Atherosclerotic heart disease of native coronary artery without angina pectoris (principal); E78.41 Elevated Lipoprotein(a); G93.32 Myalgic encephalomyelitis/chronic fatigue syndrome; M81.0 Age-related osteoporosis without current pathological fracture; E03.9 Hypothyroidism, unspecified; R73.9 Hyperglycemia, unspecified
CPT/HCPCS: 36415; 80053; 80061; 82306; 82533; 82627; 82670; 83036; 83540; 83550; 83695; 84144; 84270; 84402; 84403; 84432; 84439; 84443; 84481; 84482; 85025; 86140; 86376; 86800; 82626

== ENCOUNTER → 2024-12-13 | Outpatient (CLI) | payer OTHER, MEDICARE, SELFPAY ==
[2024-12-13 13:15] LABS: Hematocrit 44.9 % (37-47); Hemoglobin 14.8 g/dL (12.0-15.0); Immature Granulocytes Count 0.010 X10^3/uL (0.0-0.0); Mean Corp Hgb Conc 33.0 g/dL (32-36); Mean Corpuscular Volume 85.7 fL (81-99); Mean Platelet Vol. 11.0 fl (6.2-12.0); NRBC Flagged by Analyzer 0 % (0-5); Platelet Count 269 K/mm3 (150-450); RBC Distribution Width CV 13.3 % (11.6-14.6); RBC Distribution Width SD 41.7 fl (35.1-43.9); Red Blood Count 5.24 M/mm3 (4.2-5.4); White Blood Count 4.4 K/mm3 (4.4-11.0)
[2024-12-13 13:54] LABS: AST(SGOT) 18 U/L (<=31); Alanine Aminotransfer ALT/SGPT 17 U/L (<=34); Albumin, Serum 4.5 g/dL (3.4-4.8); Alkaline Phosphatase 98 U/L (35-104); Anion Gap 11 (5-15); BUN 14 mg/dL (4-19); BUN/Creat Ratio 20.1 RATIO (10-20); Calcium,Total 10.0 mg/dL (7.6-11.0); Carbon Dioxide 24.6 mmol/L (21.0-32.0); Chloride 104 mmol/L (98-108); Cholesterol 257 mg/dL (<=200); Globulin 3.0 g/dL (2.2-4.2); Glucose 94 mg/dL (70-99); Low Density Lipoprotein Calc. 166 mg/dL; Potassium 4.0 mmol/L (3.3-5.1); Triglycerides 125 mg/dL; Very Low Density Lipoprotein 25 mg/dL (5-40); cholesterol:hdl ratio screen 3.89
[2024-12-13 13:57] LABS: CORTISOL AM 7.99 ug/dL (6.02-18.40); CRP < 3.00 mg/L (0.0-3.0); Free T3 3.3 pg/mL (2.18-3.98)
[2024-12-13 14:55] LABS: Vitamin D,25 Hydroxy 80.0 ng/mL (30-100)
== END | disposition home or self-care (01) ==
LOC: LAB.FUTURE 09:41
PROVIDERS: PCP Family Medicine; Visit Provider Family Medicine
DX: E78.5 Hyperlipidemia, unspecified (principal); E27.9 Disorder of adrenal gland, unspecified; E03.9 Hypothyroidism, unspecified; E55.9 Vitamin D deficiency, unspecified; R53.83 Other fatigue
CPT/HCPCS: 36415; 80053; 80061; 82306; 82533; 84439; 84443; 84481; 84482; 85025; 86140; 86376; 86800

== ENCOUNTER → 2025-03-24 | Outpatient (CLI) | payer OTHER, MEDICARE, SELFPAY ==
[2025-03-24 15:43] LABS: Ferritin 107 ng/mL (22-378); Iron 65 ug/dL (50-170); Iron Binding Capacity,Total 269 ug/dL (250-450); Iron Binding Capacity,Unsat 204 ug/dL (228-428)
== END | disposition home or self-care (01) ==
LOC: BFHLAB 12:13
PROVIDERS: PCP Family Medicine; Visit Provider Family Medicine
DX: E61.1 Iron deficiency (principal)
CPT/HCPCS: 36415; 82728; 83540; 83550